=== PATIENT | female | born 1980 | race American Indian/Alaskan Native ===

== ENCOUNTER 2017-12-01 21:23 | Inpatient (IN) | payer OTHER ==
[2017-12-01 22:20] LABS: Hematocrit 45.8 % (30.3-42.9); Hemoglobin 14.4 gm/dl (10.1-14.3); Mean Corpuscular HGB Conc 31 % (30-34); Mean Corpuscular Volume 77 fl (79-97); Platelet Count 460 K/mm3 (140-440); Red Blood Count 5.96 M/mm3 (3.65-5.03); Red Cell Distribution Width 15.4 % (13.2-15.2)
[2017-12-01 22:23] LABS: Mean Corpuscular Hemoglobin 24 pg (28-32)
[2017-12-01 22:32] LABS: BUN/Creatinine Ratio 8; Blood Urea Nitrogen 5 mg/dL (7-17); Calcium 10.7 mg/dL (8.4-10.2); Hemolysis Index 10
[2017-12-01 22:45] LABS: Partial Thromboplastin Time 26.1 Sec. (24.2-36.6)
[2017-12-01 22:50] LABS: INR 0.91 (0.87-1.13)
[2017-12-01] MEDS ORDERED: NACL 0.9% 1000 ML 1,000 ML ONE (22:52)
[2017-12-01] MEDS ORDERED: NACL 0.9% 1000 ML 1,000 ML IV ONE (22:58)
[2017-12-01 23:02] LABS: Basophils % (Manual) 0 % (0.0-1.8); Eosinophils % (Manual) 0 % (0.0-4.3); Total Cells Counted 100
[2017-12-01 23:03] LABS: Anisocytosis Few; Poikilocytosis Few
--- NOTE | 2017-12-02 01:05 | Emergency Department Report ---
ED Shortness of Breath HPI - General Chief Complaint: Dyspnea/Respdistress Stated Complaint: SOB/COUGH Time Seen by Provider: 12/02/17 00:14 Source: patient Mode of arrival: Ambulatory Limitations: No Limitations - History of Present Illness Initial Comments: 37 yo female no significant Past medical history persistent hospital with complaints of shortness of breath. Patient states she had 1 episode Wednesday last week in a recurrent episode this evening. Last week patient was seen and evaluated and an urgent care center and diagnosed with bronchitis. Patient was on prednisone, inhalers, and was recently on amoxicillin which seem to be helping. Patient states that her cough was productive but now dry. She denies fevers. Patient have a right-sided lateral chest pain that is sharp and worse with inspiration. She reports travel to [place] [address] 3 weeks ago. She denies calf tenderness or edema. Patient presents significantly tachycardic and hypertensive and denies a history of high blood pressure. Patient started her menstrual cycle last night. - Related Data Allergies Allergy/AdvReac Type Severity Reaction Status Date / Time avocado Allergy Angioedema Verified 12/01/17 21:29 ED Review of Systems ROS: Stated complaint: SOB/COUGH Other details as noted in HPI Comment: All other systems reviewed and negative Other: Constitutional: No fevers chills Eyes: No eye pain visual changes ENT: No ear pain or throat pain Neck: Denies pain Respiratory: As per HPI Cardiovascular: As in HPI GI: Denies abdominal pain, nausea, vomiting, diarrhea : Denies dysuria Musculoskeletal: Denies back pain Skin: Denies rash, lesions, erythema Neurologic: Denies headache, numbness, weakness Psychiatric: Denies suicidal ideation, hallucinations ED Past Medical Hx - Past Medical History Previous Medical History?: No - Surgical History Past Surgical History?: No - Social History Smoking Status: Never Smoker Substance Use Type: None ED Physical Exam - General Limitations: No Limitations - Other Other exam information: General: No limitations, patient is alert in no acute distress Head exam: Atraumatic, normocephalic Eyes exam: Normal appearance ENT: Moist mucous membrane, normal oropharynx Neck exam: Normal inspection, full range of motion, no meningismus nontender Respiratory exam: Clear to auscultation bilateral, no wheezes, rales, crackles Cardiovascular: Tachycardic regular rhythm Abdomen: Soft, nondistended, and nontender, with normal bowel sounds, no rebound, or guarding Extremity: Full range of motion normal inspection no deformity, no calf tenderness or edema Back: Normal Inspection, full range of motion, no tenderness Neurologic: Alert, oriented x3, cranial nerves intact, no motor or sensory deficit Psychiatric: normal affect, normal mood Skin: Warm, dry, intact ED Course Vital Signs 12/01/17 12/01/17 12/01/17 21:29 22:59 23:31 Temperature 98.2 F Pulse Rate 145 H 144 H Respiratory 20 18 Rate Blood Pressure 163/112 O2 Sat by Pulse 97 96 Oximetry - Consultations Consultation #1: 12/02/17 03:46 case d/w Pulm mobile application engineer Dr Taveras, will consult ED Medical Decision Making - Lab Data Result diagrams: 12/01/17 21:46 12/01/17 21:46 Lab Results 12/01/17 12/01/17 12/01/17 Range/Units 21:46 21:46 21:46 WBC 14.1 H (4.5-11.0) K/mm3 RBC 5.96 H (3.65-5.03) M/mm3 Hgb 14.4 H (10.1-14.3) gm/dl Hct 45.8 H (30.3-42.9) % MCV 77 L (79-97) fl MCH 24 L (28-32) pg MCHC 31 (30-34) % RDW 15.4 H (13.2-15.2) % Plt Count 460 H (140-440) K/mm3 [place] % (Auto) Project Planner Add Manual Diff Complete Total Counted 100 Seg Neuts % (Manual) 70.0 (40.0-70.0) % Band Neutrophils % 0 % Lymphocytes % (Manual) 17.0 (13.4-35.0) % Reactive Lymphs % (Man) 0 % Monocytes % (Manual) 13.0 H (0.0-7.3) % Eosinophils % (Manual) 0 (0.0-4.3) % Basophils % (Manual) 0 (0.0-1.8) % Metamyelocytes % 0 % Myelocytes % 0 % Promyelocytes % 0 % Blast Cells % 0 % Nucleated RBC % Not Reportable Seg Neutrophils # Man 9.9 H (1.8-7.7) K/mm3 Band Neutrophils # 0.0 K/mm3 Lymphocytes # (Manual) 2.4 (1.2-5.4) K/mm3 Abs React Lymphs (Man) 0.0 K/mm3 Monocytes # (Manual) 1.8 H (0.0-0.8) K/mm3 Eosinophils # (Manual) 0.0 (0.0-0.4) K/mm3 Basophils # (Manual) 0.0 (0.0-0.1) K/mm3 Metamyelocytes # 0.0 K/mm3 Myelocytes # 0.0 K/mm3 Promyelocytes # 0.0 K/mm3 Blast Cells # 0.0 K/mm3 WBC Morphology Not Reportable Hypersegmented Neuts Not Reportable Hyposegmented Neuts Not Reportable Hypogranular Neuts Not Reportable Smudge Cells Not Reportable Toxic Granulation Not Reportable Toxic Vacuolation Not Reportable Dohle Bodies Not Reportable Pelger-Huet Anomaly Not Reportable Misty Rods Not Reportable Platelet Estimate Appears normal Clumped Platelets Not Reportable Plt Clumps, EDTA Not Reportable Large Platelets Not Reportable Giant Platelets Not Reportable Platelet Satelliting Not Reportable Plt Morphology Comment Not Reportable RBC Morphology Not Reportable Dimorphic RBCs Not Reportable Polychromasia Not Reportable Hypochromasia Not Reportable Poikilocytosis Few Anisocytosis Few Microcytosis Not Reportable Macrocytosis Not Reportable Spherocytes Not Reportable Pappenheimer Bodies Not Reportable Sickle Cells Not Reportable Target Cells Not Reportable Tear Drop Cells Not Reportable Ovalocytes Not Reportable Helmet Cells Not Reportable [place] Bodies Not Reportable [place] Rings Not Reportable Abram Cells Not Reportable Bite Cells Not Reportable Crenated Cell Not Reportable Elliptocytes Not Reportable Acanthocytes (Spur) Not Reportable Rouleaux Not Reportable Hemoglobin C Crystals Not Reportable Schistocytes Not Reportable Malaria parasites Not Reportable [place] Bodies Not Reportable Hem Pathologist Commnt No PT 12.7 (12.2-14.9) Sec. INR 0.91 (0.87-1.13) APTT 26.1 (24.2-36.6) Sec. D-Dimer 1167.06 H (0-234) ng/mlDDU Sodium 138 (137-145) mmol/L Potassium 3.9 (3.6-5.0) mmol/L Chloride 93.7 L (98-107) mmol/L Carbon Dioxide 30 (22-30) mmol/L Anion Gap 18 mmol/L BUN 5 L (7-17) mg/dL Creatinine 0.6 L (0.7-1.2) mg/dL Estimated GFR > 60 ml/min BUN/Creatinine Ratio 8 % Glucose 101 H (65-100) mg/dL Calcium 10.7 H (8.4-10.2) mg/dL Troponin T < 0.010 (0.00-0.029) ng/mL HCG, Qual (Negative) HCG, Quant (0-4) mIU/mL Blood Type Antibody Screen 12/01/17 12/02/17 12/02/17 Range/Units 21:46 00:06 00:36 WBC (4.5-11.0) K/mm3 RBC (3.65-5.03) M/mm3 Hgb (10.1-14.3) gm/dl Hct (30.3-42.9) % MCV (79-97) fl MCH (28-32) pg MCHC (30-34) % RDW (13.2-15.2) % Plt Count (140-440) K/mm3 [place] % (Auto) Add Manual Diff Total Counted Seg Neuts % (Manual) (40.0-70.0) % Band Neutrophils % % Lymphocytes % (Manual) (13.4-35.0) % Reactive Lymphs % (Man) % Monocytes % (Manual) (0.0-7.3) % Eosinophils % (Manual) (0.0-4.3) % Basophils % (Manual) (0.0-1.8) % Metamyelocytes % % Myelocytes % % Promyelocytes % % Blast Cells % % Nucleated RBC % Seg Neutrophils # Man (1.8-7.7) K/mm3 Band Neutrophils # K/mm3 Lymphocytes # (Manual) (1.2-5.4) K/mm3 Abs React Lymphs (Man) K/mm3 Monocytes # (Manual) (0.0-0.8) K/mm3 Eosinophils # (Manual) (0.0-0.4) K/mm3 Basophils # (Manual) (0.0-0.1) K/mm3 Metamyelocytes # K/mm3 Myelocytes # K/mm3 Promyelocytes # K/mm3 Blast Cells # K/mm3 WBC Morphology Hypersegmented Neuts Hyposegmented Neuts Hypogranular Neuts Smudge Cells Toxic Granulation Toxic Vacuolation Dohle Bodies Pelger-Huet Anomaly Misty Rods Platelet Estimate Clumped Platelets Plt Clumps, EDTA Large Platelets Giant Platelets Platelet Satelliting Plt Morphology Comment RBC Morphology Dimorphic RBCs Polychromasia Hypochromasia Poikilocytosis Anisocytosis Microcytosis Macrocytosis Spherocytes Pappenheimer Bodies Sickle Cells Target Cells Tear Drop Cells Ovalocytes Helmet Cells [place] Bodies [place] Rings [place] Cells Bite Cells Crenated Cell Elliptocytes Acanthocytes (Spur) Rouleaux Hemoglobin C Crystals Schistocytes Malaria parasites [place] Bodies Hem Pathologist Commnt PT (12.2-14.9) Sec. INR (0.87-1.13) APTT (24.2-36.6) Sec. D-Dimer (0-234) ng/mlDDU Sodium (137-145) mmol/L Potassium (3.6-5.0) mmol/L Chloride (98-107) mmol/L Carbon Dioxide (22-30) mmol/L Anion Gap mmol/L BUN (7-17) mg/dL Creatinine (0.7-1.2) mg/dL Estimated GFR ml/min BUN/Creatinine Ratio % Glucose (65-100) mg/dL Calcium (8.4-10.2) mg/dL Troponin T < 0.010 (0.00-0.029) ng/mL HCG, Qual Positive (Negative) HCG, Quant < 2 (0-4) mIU/mL Blood Type Antibody Screen 12/02/17 12/02/17 12/02/17 Range/Units 01:15 02:01 03:35 WBC (4.5-11.0) K/mm3 RBC (3.65-5.03) M/mm3 Hgb (10.1-14.3) gm/dl Hct (30.3-42.9) % MCV (79-97) fl MCH (28-32) pg MCHC (30-34) % RDW (13.2-15.2) % Plt Count (140-440) K/mm3 [place] % (Auto) Add Manual Diff Total Counted Seg Neuts % (Manual) (40.0-70.0) % Band Neutrophils % % Lymphocytes % (Manual) (13.4-35.0) % Reactive Lymphs % (Man) % Monocytes % (Manual) (0.0-7.3) % Eosinophils % (Manual) (0.0-4.3) % Basophils % (Manual) (0.0-1.8) % Metamyelocytes % % Myelocytes % % Promyelocytes % % Blast Cells % % Nucleated RBC % Seg Neutrophils # Man (1.8-7.7) K/mm3 Band Neutrophils # K/mm3 Lymphocytes # (Manual) (1.2-5.4) K/mm3 Abs React Lymphs (Man) K/mm3 Monocytes # (Manual) (0.0-0.8) K/mm3 Eosinophils # (Manual) (0.0-0.4) K/mm3 Basophils # (Manual) (0.0-0.1) K/mm3 Metamyelocytes # K/mm3 Myelocytes # K/mm3 Promyelocytes # K/mm3 Blast Cells # K/mm3 WBC Morphology Hypersegmented Neuts Hyposegmented Neuts Hypogranular Neuts Smudge Cells Toxic Granulation Toxic Vacuolation Dohle Bodies Pelger-Huet Anomaly Misty Rods Platelet Estimate Clumped Platelets Plt Clumps, EDTA Large Platelets Giant Platelets Platelet Satelliting Plt Morphology Comment RBC Morphology Dimorphic RBCs Polychromasia Hypochromasia Poikilocytosis Anisocytosis Microcytosis Macrocytosis Spherocytes Pappenheimer Bodies Sickle Cells Target Cells Tear Drop Cells Ovalocytes Helmet Cells [place] Bodies [place] Rings Abram Cells Bite Cells Crenated Cell Elliptocytes Acanthocytes (Spur) Rouleaux Hemoglobin C Crystals Schistocytes Malaria parasites [place] Bodies Hem Pathologist Commnt PT (12.2-14.9) Sec. INR (0.87-1.13) APTT (24.2-36.6) Sec. D-Dimer (0-234) ng/mlDDU Sodium (137-145) mmol/L Potassium (3.6-5.0) mmol/L Chloride (98-107) mmol/L Carbon Dioxide (22-30) mmol/L Anion Gap mmol/L BUN (7-17) mg/dL Creatinine (0.7-1.2) mg/dL Estimated GFR ml/min BUN/Creatinine Ratio % Glucose (65-100) mg/dL Calcium (8.4-10.2) mg/dL Troponin T < 0.010 (0.00-0.029) ng/mL HCG, Qual (Negative) HCG, Quant < 2 (0-4) mIU/mL Blood Type B POSITIVE Antibody Screen Negative - EKG Data -: EKG Interpreted by Me (right axis deviation) EKG shows normal: sinus rhythm, axis (124), QRS complexes (74), ST-T waves (no ST elevation or T-wave inversion) Rate: tachycardia (134) - EKG Data When compared to previous EKG there are: previous EKG unavailable - Radiology Data Radiology results: report reviewed CC shows IV contrast: No pulmonary embolism. Complete atelectasis of the right upper lobe in near complete atelectasis of the right middle lobe and right lower lobes. Extensive metastatic disease throughout the right middle and right lower lobes. Peripheral occupying the entire right hemothorax with moderate mass effect and me is sinus shift to the left. Extensive metastatic pleural based nodules throughout the right hemothorax. Moderate pericardial effusion. Multiple left lower nodules likely metastatic. Partially visualization of extensive metastatic disease seen throughout the liver. 1.8C medical ovoid soft tissue nodular density in the right infralateral breast nonspecific - Medical Decision Making Patient has metastatic disease without known cells. No pulmonary embolism but 100% pleural effusion on the right thorax. Pulmonology consultation the patient will also need oncology consultation. They should be admitted to the hospital further treatment and evaluation. - Differential Diagnosis hypertensive emergency, PE, bronchitis, pneumonia Critical Care Time: No Critical care attestation.: If time is entered above; I have spent that time in minutes in the direct care of this critically ill patient, excluding procedure time. ED Disposition Clinical Impression: Pleural effusion, right, Metastatic cancer, Tachycardia, Breast mass, HTN ( hypertension) Disposition: -09 OP ADMIT IP TO THIS HOSP Is pt being admited?: Yes Condition: Stable Time of Disposition: 04:15 (Dr Solis/hosp)
--- NOTE | 2017-12-02 03:45 | Cat Scan Report ---
FINAL REPORT EXAM: CT ANGIO CHEST HISTORY: Elevated D-dimer, tachycardia. Shortness of breath and chest pain. TECHNIQUE: CT angiogram of the chest was performed, with axial images obtained after the intravenous administration of contrast. Sagittal, coronal, and spiral 3D CT-MIP reformatted images were also obtained. No prior studies are available for comparison. FINDINGS: The heart is normal in size. There is a moderate pericardial effusion. There is moderate mediastinal shift to the left. The thoracic aorta is normal in caliber, without aneurysm or dissection. No filling defect is seen in the central or proximal segmental pulmonary arteries to suggest pulmonary embolus. Note that right-sided pulmonary arteries are relatively diminutive compared to the left due to lung collapse (see below). There is complete collapse of the right upper lobe. The right middle lobe and right lower lobe are also nearly completely collapsed, and demonstrate multiple extensive irregular low attenuating masses, in keeping with metastatic disease. A dominant confluent low attenuating mass in the anterior right lower lobe measures 3.4 cm in diameter. There is fluid occupying the entirety of the right hemithorax. Multiple pleural metastatic implants are seen throughout the right hemithorax, measuring up to 2.6 cm in the medial right lung base. Multiple pulmonary nodules are seen throughout the left lung, measuring up to 1.9 cm in diameter, in keeping with additional metastases. Note that only upper portions of the liver and spleen are well visualized. The remainder of the upper abdomen is obscured due to streak artifact from abdominal lead shielding. There is diffuse heterogeneous enhancement of the visualized liver, with multiple low attenuating masses, in keeping with additional diffuse metastatic disease. These measure up to 2.3 cm in diameter in the anterior left medial hepatic lobe. No discrete osseous abnormality is seen. There is a 1.8 cm ovoid soft tissue density in the right lateral inferior breast, nonspecific. Correlation with mammography is recommended. These findings were discussed with Dr. Ngo at time of interpretation 3:35 a.m. EST 12/02/2017. IMPRESSION: 1. No pulmonary embolism seen in the central or proximal segmental pulmonary arteries. 2. Complete atelectasis of the right upper lobe with near complete collapse of the right middle and right lower lobes. Extensive metastatic disease throughout the right middle and right lower lobes. 3. Pleural fluid occupying the entirety of the right hemithorax, with moderate mass effect and mediastinal shift to the left. Extensive metastatic pleural base nodules throughout the right hemithorax. Moderate pericardial effusion. 4. Multiple left pulmonary nodules, in keeping with additional metastatic disease. 5. Partial visualization of extensive metastatic disease seen throughout the liver. 6. 1.8 cm ovoid soft tissue nodular density in the right inferolateral breast, nonspecific. Correlation with mammography is recommended.
[2017-12-02] MEDS ORDERED: MORPHINE IV PRN (07:00)
[2017-12-02] MEDS ORDERED: PROVENTIL IH PRN (07:00)
[2017-12-02] MEDS ORDERED: DULCOLAX PR PRN (07:00)
[2017-12-02] MEDS: DUONEB *Not for PRN Use IH SCH ×4 (09:29→21:10)
[2017-12-02] MEDS: PEPCID PO SCH ×2 (10:30→22:44)
--- NOTE | 2017-12-02 10:39 | Hem/Onc Consultation ---
History of Present Illness - Reason for Consult Consult date: 12/02/17 - History of Present Illness 37 year old lady had SOB, cough and bronchitis type symptoms. No relief with amoxicillin and Albuterol and prednisone. presented to ER with cough and chest wall pain. Seen in ER. No PMH Medications and Allergies Allergies Allergy/AdvReac Type Severity Reaction Status Date / Time avocado Allergy Angioedema Verified 12/01/17 21:29 Home Medications Medication Instructions Recorded Confirmed Last Taken Type ALBUTEROL Inhaler [Proair] 2 puff IH QID PRN 12/02/17 12/02/17 12/01/17 13:00 History Active Meds: Active Medications Acetaminophen (Tylenol) 650 mg PO Q4H PRN PRN Reason: Pain MILD(1-3)/Fever >100.5/MORA Albuterol (Proventil) 2.5 mg IH Q4HRT PRN PRN Reason: Shortness Of Breath Albuterol/Ipratropium (Duoneb *Not For Prn Use*) 1 ampul IH Q6HRT [facility] Last Admin: 12/02/17 09:29 Dose: 1 ampul Bisacodyl (Dulcolax) 10 mg DE QDAY PRN PRN Reason: Constipation unrelieved by MOM Famotidine (Pepcid) 20 mg PO BID [facility] Magnesium Hydroxide (Milk Of Magnesia) 30 ml PO Q4H PRN PRN Reason: Constipation Morphine Sulfate (Morphine) 2 mg IV Q4H PRN PRN Reason: Pain, Moderate (4-6) Ondansetron HCl (Zofran) 4 mg IV Q4H PRN PRN Reason: Nausea Review of Systems All systems: negative (cough, bronchitis, chest wall pain) Exam - Constitutional Vitals: Last Vital Signs Temp 98.2 F 12/01/17 21:29 Pulse 123 H 12/02/17 09:45 Resp 20 12/02/17 09:45 BP 138/109 12/02/17 09:00 Pulse Ox 97 12/02/17 09:00 Pain Intensity (0-10): 3/10 General appearance: mild distress Performance status: 0-fully active - EENT Eyes: PERRL ENT: hearing intact Lymph node exam: negative cervical - Neck Neck: supple, normal ROM - Respiratory Respiratory effort: Positive: normal Respiratory: bilateral: CTA - Breasts Breasts: right: masses (2 cm right breast mass) - Cardiovascular Rhythm: regular Heart Sounds: Present: S1 & S2 Extremities: pulses intact - Gastrointestinal General gastrointestinal: Present: soft - Musculoskeletal Musculoskeletal: strength equal bilaterally - Neurologic Neurologic: CNII-XII intact - Psychiatric Psychiatric: appropriate mood/affect Results - Labs lab Results: Laboratory Results - last 24 hr 12/01/17 12/01/17 12/01/17 21:46 21:46 21:46 WBC 14.1 H RBC 5.96 H Hgb 14.4 H Hct 45.8 H MCV 77 L MCH 24 L MCHC 31 RDW 15.4 H Plt Count 460 H [place] % (Auto) Barrel Filler Head Add Manual Diff Complete Total Counted 100 Seg Neuts % (Manual) 70.0 Band Neutrophils % 0 Lymphocytes % (Manual) 17.0 Reactive Lymphs % (Man) 0 Monocytes % (Manual) 13.0 H Eosinophils % (Manual) 0 Basophils % (Manual) 0 Metamyelocytes % 0 Myelocytes % 0 Promyelocytes % 0 Blast Cells % 0 Nucleated RBC % Not Reportable Seg Neutrophils # Man 9.9 H Band Neutrophils # 0.0 Lymphocytes # (Manual) 2.4 Abs React Lymphs (Man) 0.0 Monocytes # (Manual) 1.8 H Eosinophils # (Manual) 0.0 Basophils # (Manual) 0.0 Metamyelocytes # 0.0 Myelocytes # 0.0 Promyelocytes # 0.0 Blast Cells # 0.0 WBC Morphology Not Reportable Hypersegmented Neuts Not Reportable Hyposegmented Neuts Not Reportable Hypogranular Neuts Not Reportable Smudge Cells Not Reportable Toxic Granulation Not Reportable Toxic Vacuolation Not Reportable Dohle Bodies Not Reportable Pelger-Huet Anomaly Not Reportable Misty Rods Not Reportable Platelet Estimate Appears normal Clumped Platelets Not Reportable Plt Clumps, EDTA Not Reportable Large Platelets Not Reportable Giant Platelets Not Reportable Platelet Satelliting Not Reportable Plt Morphology Comment Not Reportable RBC Morphology Not Reportable Dimorphic RBCs Not Reportable Polychromasia Not Reportable Hypochromasia Not Reportable Poikilocytosis Few Anisocytosis Few Microcytosis Not Reportable Macrocytosis Not Reportable Spherocytes Not Reportable Pappenheimer Bodies Not Reportable Sickle Cells Not Reportable Target Cells Not Reportable Tear Drop Cells Not Reportable Ovalocytes Not Reportable Helmet Cells Not Reportable [place] Bodies Not Reportable [place] Rings Not Reportable Abram Cells Not Reportable Bite Cells Not Reportable Crenated Cell Not Reportable Elliptocytes Not Reportable Acanthocytes (Spur) Not Reportable Rouleaux Not Reportable Hemoglobin C Crystals Not Reportable Schistocytes Not Reportable Malaria parasites Not Reportable [place] Bodies Not Reportable Hem Pathologist Commnt No PT 12.7 INR 0.91 APTT 26.1 D-Dimer 1167.06 H Sodium 138 Potassium 3.9 Chloride 93.7 L Carbon Dioxide 30 Anion Gap 18 BUN 5 L Creatinine 0.6 L Estimated GFR > 60 BUN/Creatinine Ratio 8 Glucose 101 H Calcium 10.7 H Troponin T < 0.010 HCG, Qual HCG, Quant Blood Type Antibody Screen 12/01/17 12/02/17 12/02/17 21:46 00:06 00:36 WBC RBC Hgb Hct MCV MCH MCHC RDW Plt Count [place] % (Auto) Add Manual Diff Total Counted Seg Neuts % (Manual) Band Neutrophils % Lymphocytes % (Manual) Reactive Lymphs % (Man) Monocytes % (Manual) Eosinophils % (Manual) Basophils % (Manual) Metamyelocytes % Myelocytes % Promyelocytes % Blast Cells % Nucleated RBC % Seg Neutrophils # Man Band Neutrophils # Lymphocytes # (Manual) Abs React Lymphs (Man) Monocytes # (Manual) Eosinophils # (Manual) Basophils # (Manual) Metamyelocytes # Myelocytes # Promyelocytes # Blast Cells # WBC Morphology Hypersegmented Neuts Hyposegmented Neuts Hypogranular Neuts Smudge Cells Toxic Granulation Toxic Vacuolation Dohle Bodies Pelger-Huet Anomaly Misty Rods Platelet Estimate Clumped Platelets Plt Clumps, EDTA Large Platelets Giant Platelets Platelet Satelliting Plt Morphology Comment RBC Morphology Dimorphic RBCs Polychromasia Hypochromasia Poikilocytosis Anisocytosis Microcytosis Macrocytosis Spherocytes Pappenheimer Bodies Sickle Cells Target Cells Tear Drop Cells Ovalocytes Helmet Cells [place] Bodies [place] Rings [place] Cells Bite Cells Crenated Cell Elliptocytes Acanthocytes (Spur) Rouleaux Hemoglobin C Crystals Schistocytes Malaria parasites [place] Bodies Hem Pathologist Commnt PT INR APTT D-Dimer Sodium Potassium Chloride Carbon Dioxide Anion Gap BUN Creatinine Estimated GFR BUN/Creatinine Ratio Glucose Calcium Troponin T < 0.010 HCG, Qual Positive HCG, Quant < 2 Blood Type Antibody Screen 12/02/17 12/02/17 12/02/17 01:15 02:01 03:35 WBC RBC Hgb Hct MCV MCH MCHC RDW Plt Count [place] % (Auto) Add Manual Diff Total Counted Seg Neuts % (Manual) Band Neutrophils % Lymphocytes % (Manual) Reactive Lymphs % (Man) Monocytes % (Manual) Eosinophils % (Manual) Basophils % (Manual) Metamyelocytes % Myelocytes % Promyelocytes % Blast Cells % Nucleated RBC % Seg Neutrophils # Man Band Neutrophils # Lymphocytes # (Manual) Abs React Lymphs (Man) Monocytes # (Manual) Eosinophils # (Manual) Basophils # (Manual) Metamyelocytes # Myelocytes # Promyelocytes # Blast Cells # WBC Morphology Hypersegmented Neuts Hyposegmented Neuts Hypogranular Neuts Smudge Cells Toxic Granulation Toxic Vacuolation Dohle Bodies Pelger-Huet Anomaly Misty Rods Platelet Estimate Clumped Platelets Plt Clumps, EDTA Large Platelets Giant Platelets Platelet Satelliting Plt Morphology Comment RBC Morphology Dimorphic RBCs Polychromasia Hypochromasia Poikilocytosis Anisocytosis Microcytosis Macrocytosis Spherocytes Pappenheimer Bodies Sickle Cells Target Cells Tear Drop Cells Ovalocytes Helmet Cells [place] Bodies [place] Rings [place] Cells Bite Cells Crenated Cell Elliptocytes Acanthocytes (Spur) Rouleaux Hemoglobin C Crystals Schistocytes Malaria parasites [place] Bodies Hem Pathologist Commnt PT INR APTT D-Dimer Sodium Potassium Chloride Carbon Dioxide Anion Gap BUN Creatinine Estimated GFR BUN/Creatinine Ratio Glucose Calcium Troponin T < 0.010 HCG, Qual HCG, Quant < 2 Blood Type B POSITIVE Antibody Screen Negative - Imaging and cardiology CT scan - chest: report reviewed, image reviewed Assessment and Plan - Patient Problems (1) Breast mass Current Visit: Yes Status: Acute Plan to address problem: Etiology unclear will order biopsy and tumor markers. Discussed with Dr Stefan Esparza to assess pericardial effusion. They will see patient. (2) Metastatic cancer Current Visit: Yes Status: Acute Plan to address problem: Will pursue CT abdomen and pelvis and bine scan and biopsy lung or liver. (3) Pleural effusion, right Current Visit: Yes Status: Acute Plan to address problem: Drain if significant.
--- NOTE | 2017-12-02 12:09 | Consultation ---
History of Present Illness Consult date: 12/02/17 Requesting physician: RHONA REILLY Consult reason: other (pericardial effusion ) History of present illness: The pt is a 37 YO female with no known significant past medical history. She is previously unknown to our practice. She presented with complaints of progressively worsening shortness of breath for the past 2-3 weeks. At the onset of her symptoms, she believed that she had caught the flu from her sister. She later went to an urgent care and was diagnosed with acute bronchitis and was prescribed amoxicillin. Her symptoms did not improve and she then presented to her PCP, who prescribed prednisone and inhalers. She also complains of some right-sided back pain which is aggravated by deep inspiration. She denies any cough, chest pain, palpitations, n/v, diaphoresis, dizziness or syncope. Following admission, chest CTA was negative for PE, showed complete atelectasis of the RUL with near complete collapse of the right middle and right lower lobes, extensive metastatic disease throughout the right middle and right lower lobes, pleural fluid occupying the entirety of the right hemithorax with moderate mass effect and mediastinal shift to the left, metastatic pleural base nodules throughout the right hemithorax, moderate pleural effusion, multiple left pulmonary nodules, partial visualization of extensive metastatic disease seen throughout the liver, 1.8cm ovoid soft tissue nodular density in the right breast. She underwent US guided thoracentesis this AM and a total of 2L of fluid was removed. Echo was obtained to evaluate for pericardial effusion. Echo showed EF 40-45%, noted mass impending the RA function, trivial pericardial effusion. Past History Past Medical History: No medical history Past Surgical History: No surgical history Social history: denies: smoking, alcohol abuse, prescription drug abuse Family history: hypertension (mother and aunts) Medications and Allergies Allergies Allergy/AdvReac Type Severity Reaction Status Date / Time avocado Allergy Angioedema Verified 12/01/17 21:29 Home Medications Medication Instructions Recorded Confirmed Last Taken Type ALBUTEROL Inhaler [Proair] 2 puff IH QID PRN 12/02/17 12/02/17 12/01/17 13:00 History Active Meds: Active Medications Acetaminophen (Tylenol) 650 mg PO Q4H PRN PRN Reason: Pain MILD(1-3)/Fever >100.5/MORA Albuterol (Proventil) 2.5 mg IH Q4HRT PRN PRN Reason: Shortness Of Breath Albuterol/Ipratropium (Duoneb *Not For Prn Use*) 1 ampul IH Q6HRT [facility] Last Admin: 12/02/17 09:29 Dose: 1 ampul Bisacodyl (Dulcolax) 10 mg PA QDAY PRN PRN Reason: Constipation unrelieved by MOM Famotidine (Pepcid) 20 mg PO BID [facility] Magnesium Hydroxide (Milk Of Magnesia) 30 ml PO Q4H PRN PRN Reason: Constipation Morphine Sulfate (Morphine) 2 mg IV Q4H PRN PRN Reason: Pain, Moderate (4-6) Ondansetron HCl (Zofran) 4 mg IV Q4H PRN PRN Reason: Nausea Review of Systems Constitutional: no weight loss, no weight gain, no fever, no chills, no sweats Ears, nose, mouth and throat: no ear pain, no nose pain, no sinus pressure, no sinus pain Cardiovascular: shortness of breath, dyspnea on exertion, decreased exercise tolerance, no chest pain, no orthopnea, no palpitations, no rapid/irregular heart beat, no edema, no syncope, no lightheadedness, no high blood pressure, no leg edema Respiratory: shortness of breath, dyspnea on exertion, pain on inspiration, no cough, no congestion, no wheezing Gastrointestinal: no abdominal pain, no nausea, no vomiting, no diarrhea, no constipation, no change in bowel habits Genitourinary Female: no pelvic pain, no flank pain, no dysuria, no urinary frequency, no urgency Musculoskeletal: no neck stiffness, no neck pain, no shooting arm pain, no arm numbness/tingling, no low back pain, no shooting leg pain, no leg numbness/ tingling, no redness of joints Integumentary: no rash, no pruritis, no redness, no sores, no wounds Neurological: no head injury, no paralysis, no weakness, no parathesias, no numbness, no tingling, no seizures, no syncope Psychiatric: no anxiety Endocrine: no cold intolerance, no heat intolerance Hematologic/Lymphatic: no easy bruising, no easy bleeding, no lymphadenopathy Allergic/Immunologic: no urticaria, no wheezing, no persistent infections Physical Examination Vital Signs Temp Pulse Resp BP Pulse Ox 98.2 F 145 H 20 163/112 97 12/01/17 21:29 12/01/17 21:29 12/01/17 21:29 12/01/17 21:29 12/01/17 21:29 General appearance: no acute distress HEENT: Positive: PERRL, Normocephaly, Mucus Membranes Moist Neck: Positive: neck supple, trachea midline Cardiac: Positive: Regular Rhythm, S1/S2, Tachycardia Lungs: Positive: Decreased Breath Sounds (right sided ) Neuro: Positive: Grossly Intact Abdomen: Positive: Soft. Negative: Tender Skin: Negative: Rash Musculoskeletal: No Fluid Collection, No Pain, Normal Range of Motion Extremities: Absent: edema Results 12/01/17 21:46 12/01/17 21:46 Coagulation 12/01/17 Range/Units 21:46 PT 12.7 (12.2-14.9) Sec. INR 0.91 (0.87-1.13) APTT 26.1 (24.2-36.6) Sec. CBC 12/01/17 Range/Units 21:46 WBC 14.1 H (4.5-11.0) K/mm3 RBC 5.96 H (3.65-5.03) M/mm3 Hgb 14.4 H (10.1-14.3) gm/dl Hct 45.8 H (30.3-42.9) % Plt Count 460 H (140-440) K/mm3 Comprehensive Metabolic Panel 12/01/17 Range/Units 21:46 Sodium 138 (137-145) mmol/L Potassium 3.9 (3.6-5.0) mmol/L Chloride 93.7 L (98-107) mmol/L Carbon Dioxide 30 (22-30) mmol/L BUN 5 L (7-17) mg/dL Creatinine 0.6 L (0.7-1.2) mg/dL Glucose 101 H (65-100) mg/dL Calcium 10.7 H (8.4-10.2) mg/dL - Imaging and Cardiology Echo: report reviewed (EF 40-45%, noted mass impending the RA function, trivial pericardial effusion) EKG: report reviewed, image reviewed EKG interpretations - Telemetry EKG Rhythm: Sinus Tachycardia - EKG Sinus rhythms and dysrhythmias: sinus tachycardia Assessment and Plan Assessment: Breast mass Metastatic CA Sinus tachycardia - suspect physiologic Right sided pleural effusion - s/p thoracentesis CMP - EF 40-45%; suspect tachycardia induced Plan: Echo reviewed with trivial pericardial effusion. Consider initiation of BB if necessary for HR control. Nothing further to add from cardiac perspective at this time. Will sign off, please call with questions/concerns or for re-evaluation. Assessment and plan reviewed with pt at bedside. The patient has been seen in conjunction with Dr. Baptiste who agrees with the assessment and plan of care.
--- NOTE | 2017-12-02 12:13 | Procedure Note ---
Date of procedure: 12/02/17 Pre-op diagnosis: lt effusion Post-op diagnosis: same Procedure: lt. thoracentesis Findings: straw colored fluid Anesthesia: local Surgeon: TICO ARMENDARIZ Estimated blood loss: none Pathology: list (lt pleural effusion) Specimen disposition: to lab Condition: stable Disposition: floor
[2017-12-02 12:38] LABS: pH, Body Fluid 7.393
[2017-12-02 13:38] LABS: Total Cells Counted 100 /mm3
--- NOTE | 2017-12-02 13:43 | History and Physical Report ---
History of Present Illness Date of examination: 12/02/17 Date of admission: 12/02/17 04:18 Chief complaint: shortness of breath History of present illness: Patient is a 37 year old female with no past medical history who presented to the ER with complaints of shortness of breath going on for over 2 weeks, worse with ambulation and no associated chest pain, nausea, vomiting, diarrhea or fever. Patient reports treatment with amoxicilin and prednisone from an urgent care center with no improvement. She presented to the ER after she noted worsening shortness of breath, and back pain. On arrival was noted to have showed complete atelectasis of the RUL with near complete collapse of the right middle and right lower lobes, extensive metastatic disease throughout the right middle and right lower lobes, pleural fluid occupying the entirety of the right hemithorax with moderate mass effect and mediastinal shift to the left, metastatic pleural base nodules throughout the right hemithorax, moderate pleural effusion, multiple left pulmonary nodules, partial visualization of extensive metastatic disease seen throughout the liver, 1.8cm ovoid soft tissue nodular density in the right breast. She denies any tobacco history or family history of cancer. Past History Past Medical History: No medical history Past Surgical History: No surgical history Social history: full code. denies: smoking, alcohol abuse, prescription drug abuse, IV drug use Family history: no significant family history Medications and Allergies Allergies Allergy/AdvReac Type Severity Reaction Status Date / Time avocado Allergy Angioedema Verified 12/01/17 21:29 Home Medications Medication Instructions Recorded Confirmed Last Taken Type ALBUTEROL Inhaler [Proair] 2 puff IH QID PRN 12/02/17 12/02/17 12/01/17 13:00 History Active Meds: Active Medications Acetaminophen (Tylenol) 650 mg PO Q4H PRN PRN Reason: Pain MILD(1-3)/Fever >100.5/MORA Albuterol (Proventil) 2.5 mg IH Q4HRT PRN PRN Reason: Shortness Of Breath Albuterol/Ipratropium (Duoneb *Not For Prn Use*) 1 ampul IH Q6HRT [facility] Last Admin: 12/02/17 13:38 Dose: 1 ampul Bisacodyl (Dulcolax) 10 mg NM QDAY PRN PRN Reason: Constipation unrelieved by MOM Famotidine (Pepcid) 20 mg PO BID [facility] Magnesium Hydroxide (Milk Of Magnesia) 30 ml PO Q4H PRN PRN Reason: Constipation Morphine Sulfate (Morphine) 2 mg IV Q4H PRN PRN Reason: Pain, Moderate (4-6) Ondansetron HCl (Zofran) 4 mg IV Q4H PRN PRN Reason: Nausea Review of Systems All systems: negative Cardiovascular: shortness of breath, dyspnea on exertion Respiratory: cough, shortness of breath Exam - Physical Exam Narrative exam: VITAL SIGNS: Reviewed. GENERAL: The patient appeared well nourished and normally developed. Vital signs as documented. HEAD: No signs of head trauma. EYES: Pupils are equal. Extraocular motions intact. EARS: Hearing grossly intact. MOUTH: Oropharynx is normal. NECK: No adenopathy, no JVD. CHEST: Chest with crackles breath sounds Right lobar. . CARDIAC: Regular rate and rhythm. S1 and S2, without murmurs, gallops, or rubs. VASCULAR: No Edema. Peripheral pulses normal and equal in all extremities. ABDOMEN: Soft, without detectable tenderness. No sign of distention. No rebound or guarding, and no masses palpated. Bowel Sounds normal. MUSCULOSKELETAL: Good range of motion of all major joints. Extremities without clubbing, cyanosis or edema. NEUROLOGIC EXAM: Alert and oriented x 3. No focal sensory or strength deficits. Speech normal. Follows commands. PSYCHIATRIC: Mood normal. SKIN: No rash or lesions. - Constitutional Vitals: Temp Pulse Resp BP Pulse Ox 98.2 F 121 H 18 143/111 96 12/01/17 21:29 12/02/17 13:38 12/02/17 13:38 12/02/17 10:00 12/02/17 10:00 Results - Labs CBC & Chem 7: 12/01/17 21:46 12/01/17 21:46 Labs: Laboratory Last Values WBC 14.1 K/mm3 (4.5-11.0) H 12/01/17 21:46 RBC 5.96 M/mm3 (3.65-5.03) H 12/01/17 21:46 Hgb 14.4 gm/dl (10.1-14.3) H 12/01/17 21:46 Hct 45.8 % (30.3-42.9) H 12/01/17 21:46 MCV 77 fl (79-97) L 12/01/17 21:46 MCH 24 pg (28-32) L 12/01/17 21:46 MCHC 31 % (30-34) 12/01/17 21:46 RDW 15.4 % (13.2-15.2) H 12/01/17 21:46 Plt Count 460 K/mm3 (140-440) H 12/01/17 21:46 Armstrong % (Auto) Tax Associate Attorney 12/01/17 21:46 Add Manual Diff Complete 12/01/17 21:46 Total Counted 100 12/01/17 21:46 Seg Neuts % (Manual) 70.0 % (40.0-70.0) 12/01/17 21:46 Band Neutrophils % 0 % 12/01/17 21:46 Lymphocytes % (Manual) 17.0 % (13.4-35.0) 12/01/17 21:46 Reactive Lymphs % (Man) 0 % 12/01/17 21:46 Monocytes % (Manual) 13.0 % (0.0-7.3) H 12/01/17 21:46 Eosinophils % (Manual) 0 % (0.0-4.3) 12/01/17 21:46 Basophils % (Manual) 0 % (0.0-1.8) 12/01/17 21:46 Metamyelocytes % 0 % 12/01/17 21:46 Myelocytes % 0 % 12/01/17 21:46 Promyelocytes % 0 % 12/01/17 21:46 Blast Cells % 0 % 12/01/17 21:46 Nucleated RBC % Not Reportable 12/01/17 21:46 Seg Neutrophils # Man 9.9 K/mm3 (1.8-7.7) H 12/01/17 21:46 Band Neutrophils # 0.0 K/mm3 12/01/17 21:46 Lymphocytes # (Manual) 2.4 K/mm3 (1.2-5.4) 12/01/17 21:46 Abs React Lymphs (Man) 0.0 K/mm3 12/01/17 21:46 Monocytes # (Manual) 1.8 K/mm3 (0.0-0.8) H 12/01/17 21:46 Eosinophils # (Manual) 0.0 K/mm3 (0.0-0.4) 12/01/17 21:46 Basophils # (Manual) 0.0 K/mm3 (0.0-0.1) 12/01/17 21:46 Metamyelocytes # 0.0 K/mm3 12/01/17 21:46 Myelocytes # 0.0 K/mm3 12/01/17 21:46 Promyelocytes # 0.0 K/mm3 12/01/17 21:46 Blast Cells # 0.0 K/mm3 12/01/17 21:46 WBC Morphology Not Reportable 12/01/17 21:46 Hypersegmented Neuts Not Reportable 12/01/17 21:46 Hyposegmented Neuts Not Reportable 12/01/17 21:46 Hypogranular Neuts Not Reportable 12/01/17 21:46 Smudge Cells Not Reportable 12/01/17 21:46 Toxic Granulation Not Reportable 12/01/17 21:46 Toxic Vacuolation Not Reportable 12/01/17 21:46 Dohle Bodies Not Reportable 12/01/17 21:46 Pelger-Huet Anomaly Not Reportable 12/01/17 21:46 Misty Rods Not Reportable 12/01/17 21:46 Platelet Estimate Appears normal 12/01/17 21:46 Clumped Platelets Not Reportable 12/01/17 21:46 Plt Clumps, EDTA Not Reportable 12/01/17 21:46 Large Platelets Not Reportable 12/01/17 21:46 Giant Platelets Not Reportable 12/01/17 21:46 Platelet Satelliting Not Reportable 12/01/17 21:46 Plt Morphology Comment Not Reportable 12/01/17 21:46 RBC Morphology Not Reportable 12/01/17 21:46 Dimorphic RBCs Not Reportable 12/01/17 21:46 Polychromasia Not Reportable 12/01/17 21:46 Hypochromasia Not Reportable 12/01/17 21:46 Poikilocytosis Few 12/01/17 21:46 Anisocytosis Few 12/01/17 21:46 Microcytosis Not Reportable 12/01/17 21:46 Macrocytosis Not Reportable 12/01/17 21:46 Spherocytes Not Reportable 12/01/17 21:46 Pappenheimer Bodies Not Reportable 12/01/17 21:46 Sickle Cells Not Reportable 12/01/17 21:46 Target Cells Not Reportable 12/01/17 21:46 Tear Drop Cells Not Reportable 12/01/17 21:46 Ovalocytes Not Reportable 12/01/17 21:46 Helmet Cells Not Reportable 12/01/17 21:46 Stapleton-Lomas Bodies Not Reportable 12/01/17 21:46 Grifton Rings Not Reportable 12/01/17 21:46 Royal Cells Not Reportable 12/01/17 21:46 Bite Cells Not Reportable 12/01/17 21:46 Crenated Cell Not Reportable 12/01/17 21:46 Elliptocytes Not Reportable 12/01/17 21:46 Acanthocytes (Spur) Not Reportable 12/01/17 21:46 Rouleaux Not Reportable 12/01/17 21:46 Hemoglobin C Crystals Not Reportable 12/01/17 21:46 Schistocytes Not Reportable 12/01/17 21:46 Malaria parasites Not Reportable 12/01/17 21:46 Figueroa Bodies Not Reportable 12/01/17 21:46 Hem Pathologist Commnt No 12/01/17 21:46 PT 12.7 Sec. (12.2-14.9) 12/01/17 21:46 INR 0.91 (0.87-1.13) 12/01/17 21:46 APTT 26.1 Sec. (24.2-36.6) 12/01/17 21:46 D-Dimer 1167.06 ng/mlDDU (0-234) H 12/01/17 21:46 Sodium 138 mmol/L (137-145) 12/01/17 21:46 Potassium 3.9 mmol/L (3.6-5.0) 12/01/17 21:46 Chloride 93.7 mmol/L (98-107) L 12/01/17 21:46 Carbon Dioxide 30 mmol/L (22-30) 12/01/17 21:46 Anion Gap 18 mmol/L 12/01/17 21:46 BUN 5 mg/dL (7-17) L 12/01/17 21:46 Creatinine 0.6 mg/dL (0.7-1.2) L 12/01/17 21:46 Estimated GFR > 60 ml/min 12/01/17 21:46 BUN/Creatinine Ratio 8 % 02/07/18 21:46 Glucose 101 mg/dL (65-100) H 12/01/17 21:46 Calcium 10.7 mg/dL (8.4-10.2) H 12/01/17 21:46 Troponin T < 0.010 ng/mL (0.00-0.029) 12/02/17 03:35 HCG, Qual Positive (Negative) 12/01/17 21:46 HCG, Quant < 2 mIU/mL (0-4) 12/02/17 02:01 Fluid Type Thoracentesis 12/02/17 Unknown Fluid Color Yellow 12/02/17 Unknown Fluid Appearance Clear 12/02/17 Unknown Fluid pH 7.393 12/02/17 Unknown Fluid WBC 118 /mm3 12/02/17 Unknown Fluid RBC 334 /mm3 12/02/17 Unknown Fluid Seg Neutrophils 5.0 % 12/02/17 Unknown Fluid Lymphocytes 59.0 % 12/02/17 Unknown Fluid Reactive Lymphs 0 % 12/02/17 Unknown Fluid Monocytes 36.0 % 12/02/17 Unknown Fluid Eosinophils 0 % 12/02/17 Unknown Fluid Basophils 0 % 12/02/17 Unknown Blood Type B POSITIVE 12/02/17 01:15 Antibody Screen Negative 12/02/17 01:15 - Imaging and Cardiology Chest x-ray: image reviewed (right lobar opacification) Assessment and Plan Assessment and plan: Patient is a 37 year old female with no past medical history who presented to the ER with complaints of shortness of breath going on for over 2 weeks, worse with ambulation and no associated chest pain, nausea, vomiting, diarrhea or fever. Patient reports treatment with amoxicilin and prednisone from an urgent care center with no improvement. She presented to the ER after she noted worsening shortness of breath, and back pain. On arrival was noted to have showed complete atelectasis of the RUL with near complete collapse of the right middle and right lower lobes, extensive metastatic disease throughout the right middle and right lower lobes, pleural fluid occupying the entirety of the right hemithorax with moderate mass effect and mediastinal shift to the left, metastatic pleural base nodules throughout the right hemithorax, moderate pleural effusion, multiple left pulmonary nodules, partial visualization of extensive metastatic disease seen throughout the liver, 1.8cm ovoid soft tissue nodular density in the right breast. She denies any tobacco history or family history of cancer. Acute on chronic Respiratory failure with hypoxia * Continue Nebs, oxygen support, Pulmonary consult Right Upper lobe pleural effusion * IR for diagnostic thoracentesis. Send labs Left pulmonary nodule with mass effect * May eventually need CTS surgery. Will await pathology and cytology from pleural fluids Breast Nodule * Discussed with Breast surgeon, will set up for outpatient evaluation SIRS * Secondary to above. May also have underlying infection. start on broad specturm abx after cultueres * R/o Influenza Presumed Metastatic Disease * Consult Hematology oncology DVT/GI prophy Plan discussed with patient and family The high probability of a clinically significant, sudden or life threatening deterioration of the [pulmonary] system(s) required my full and direct attention , intervention and personal management. The aggregate critical care time was [35 ] minutes. This time is in addition to time spent performing reported procedures but includes the following: [x] Data Review and interpretation [x] Patient assessment and monitoring of vital signs [x] Documentation [x] Medication orders and management Advance Directives: Yes Plan of care discussed with patient/family: Yes
--- NOTE | 2017-12-02 13:51 | Ultrasound Report ---
Ultrasound-guided thoracentesis: Imaging obtained over the posterior right chest demonstrates a large volume of pleural fluid. An approach site was marked and the skin was cleansed and draped. 1% lidocaine used for local anesthesia. Through a small skin aye a 5-gauge PressConnect catheter was placed into the pleural fluid. 120 cc of straw-colored fluid was initially removed for laboratory evaluation. A total of 2 L of fluid was successfully removed without apparent complication.
--- NOTE | 2017-12-02 14:38 | XRay Report ---
Portable chest: Right thoracentesis. Expiration AP chest shows large opacity occupying the mid and lower right lung. There is an effusion on the lateral right chest wall. The left lung is fully expanded as is the visualized right lung. Left lung is clear. Impression: No complication post right thoracentesis.
--- NOTE | 2017-12-02 17:21 | Magnetic Resonance Report ---
FINAL REPORT EXAM: MR BRAIN WO/W CON HISTORY: mets TECHNIQUE: MRI brain with and without intravenous contrast PRIORS: None. FINDINGS: There is normal signal throughout the brain parenchyma. No evidence for brain edema pattern or mass effect. Ventricles and sulci are within normal limits. No evidence for acute intra-axial or extra-axial hemorrhage. On postcontrast exam no areas of abnormal enhancement are identified. No evidence for acute restriction on diffusion-weighted study. Brainstem and posterior fossa structures are unremarkable. IMPRESSION: No evidence for intracranial metastatic disease
--- NOTE | 2017-12-02 17:35 | Magnetic Resonance Report ---
FINAL REPORT EXAM: MR MRA/MRV HEAD WO CON HISTORY: metastatic cancer MR angiogram head [id number] PRIORS: None. FINDINGS: Normal appearance of the intracranial portion of the carotid arteries. The MCA and JUAN MANUEL distributions are unremarkable Distal vertebral arteries are intact. The basilar and POLICE CADET circulation is within normal limits No evidence for major vascular occlusion or aneurysm IMPRESSION: Normal MRA head
[2017-12-02] MEDS ORDERED: MORPHINE ONE (21:26)
[2017-12-02] MEDS: ZOFRAN IV PRN (21:30)
--- NOTE | 2017-12-02 22:21 | Consultation ---
History of Present Illness Consult date: 12/02/17 History of present illness: PULMONARY CONSULTATION DR. Queen thank you for asking us to participate in the care of this Patient. This is 37 year old female came to the emergency room with shortness of breath for 2 to 3 weeks.Patient was treated for acute bronchitis and for Flu like symptoms.Patient was given po amoxicillin with out much improvement.Susequently patient given prednisone and inhalers.Patient denies fever, cough and chest pain.She said she lost some weight recently.Patient chest xray and CAT scan of chest showed complete opacification.Also reported pleural based lesions on right side. Also reported multiple nodules.Patient undergone right thoracentesis. removed 2 litres of straw colored fluid.Pleural fluid results pending.Patient has no history of smoking,alcohol or drug abuse. Not . No children.Patient works in her own bakery.Patient says she has been loosing weight for last few months.Patient allergic to [place]ac[place]. Patient post thoracentesis, alert, awake. No acute respiratory distress. O2 saturation 95% on room air. Past History Past Medical History: No medical history Past Surgical History: No surgical history Social history: denies: smoking, alcohol abuse, prescription drug abuse Family history: hypertension (mother and aunts) Medications and Allergies Allergies Allergy/AdvReac Type Severity Reaction Status Date / Time avocado Allergy Angioedema Verified 12/01/17 21:29 Home Medications Medication Instructions Recorded Confirmed Last Taken Type ALBUTEROL Inhaler [Proair] 2 puff IH QID PRN 12/02/17 12/02/17 12/01/17 13:00 History Active Meds: Active Medications Acetaminophen (Tylenol) 650 mg PO Q4H PRN PRN Reason: Pain MILD(1-3)/Fever >100.5/MORA Albuterol (Proventil) 2.5 mg IH Q4HRT PRN PRN Reason: Shortness Of Breath Albuterol/Ipratropium (Duoneb *Not For Prn Use*) 1 ampul IH Q6HRT [facility] Last Admin: 12/02/17 21:10 Dose: 1 ampul Bisacodyl (Dulcolax) 10 mg SD QDAY PRN PRN Reason: Constipation unrelieved by MOM Famotidine (Pepcid) 20 mg PO BID [facility] Last Admin: 12/02/17 10:30 Dose: Not Given Magnesium Hydroxide (Milk Of Magnesia) 30 ml PO Q4H PRN PRN Reason: Constipation Morphine Sulfate (Morphine) 2 mg IV Q4H PRN PRN Reason: Pain, Moderate (4-6) Last Admin: 12/02/17 21:30 Dose: 2 mg Ondansetron HCl (Zofran) 4 mg IV Q4H PRN PRN Reason: Nausea Last Admin: 12/02/17 21:30 Dose: 4 mg Review of Systems All systems: negative Physical Examination Vital signs: Vital Signs Temp Pulse Resp BP Pulse Ox 98.2 F 145 H 20 163/112 97 12/01/17 21:29 12/01/17 21:29 12/01/17 21:29 12/01/17 21:29 12/01/17 21:29 General appearance: no acute distress, alert Eyes: non-icteric ENT: oropharynx moist Neck: supple, no JVD Ascultation: Right: diminished breath sounds Cardiovascular: regular rate and rhythm Gastrointestinal: normoactive bowel sounds, soft, non-tender Integumentary: normal Extremities: no cyanosis, no edema Musculoskeletal: no deformities Gait: normal gait normal mental status, non-focal exam, pupils equal and round, CN II-XII normal mood appropriate Results - Laboratory Findings CBC and BMP: 12/01/17 21:46 12/01/17 21:46 PT/INR, D-dimer PT 12.7 Sec. (12.2-14.9) 12/01/17 21:46 INR 0.91 (0.87-1.13) 12/01/17 21:46 D-Dimer 1167.06 ng/mlDDU (0-234) H 12/01/17 21:46 Abnormal lab findings: Abnormal Labs 12/01/17 12/01/17 12/01/17 21:46 21:46 21:46 WBC 14.1 H RBC 5.96 H Hgb 14.4 H Hct 45.8 H MCV 77 L MCH 24 L RDW 15.4 H Plt Count 460 H Monocytes % (Manual) 13.0 H Seg Neutrophils # Man 9.9 H Monocytes # (Manual) 1.8 H D-Dimer 1167.06 H Chloride 93.7 L BUN 5 L Creatinine 0.6 L Glucose 101 H Calcium 10.7 H - Diagnostic Findings Chest x-ray: report reviewed (Complete opacification of right hemithorax. Shifting of meiastinum to the left.), image reviewed Assessment and Plan This is 37 year old female came to the emergency room with shortness of breath for 2 to 3 weeks.Patient was treated for acute bronchitis and for Flu like symptoms.Patient was given po amoxicillin with out much improvement.Susequently patient given prednisone and inhalers.Patient denies fever, cough and chest pain.She said she lost some weight recently.Patient chest xray and CAT scan of chest showed complete opacification.Also reported pleural based lesions on right side. Also reported multiple nodules.Patient undergone right thoracentesis. removed 2 litres of straw colored fluid.Pleural fluid results pending.Patient has no history of smoking,alcohol or drug abuse. Not . No children.Patient works in her own bakery.Patient says she has been loosing weight for last few months.Patient allergic to [place]. Patient post thoracentesis, alert, awake. No acute respiratory distress. O2 saturation 95% on room air. - Patient Problems (1) Pleural effusion, right Current Visit: Yes Status: Acute Plan to address problem: Patient undergone right thoracentesis Waiting for pleural fluid results. continue albuterol aerosol treatments q 6 hours. O2 2 litres via nasal canula. (2) Breast mass Current Visit: Yes Status: Acute Plan to address problem: Recommend to consult general surgery. Already oncology consulted.
[2017-12-03] MEDS: DUONEB *Not for PRN Use IH SCH ×4 (02:05→19:27)
[2017-12-03] MEDS: LEVAQUIN 750MG/150ML 750 MG/150 ML BAG IV SCH ×2 (03:41→15:51)
[2017-12-03 06:15] LABS: Basophils # (Auto) 0.1 K/mm3 (0.0-0.1); Basophils % (Auto) 0.9 % (0.0-1.8); Eosinophils # (Auto) 0.1 K/mm3 (0.0-0.4); Eosinophils % (Auto) 0.8 % (0.0-4.3); Hematocrit 39.6 % (30.3-42.9); Hemoglobin 12.7 gm/dl (10.1-14.3); Lymphocytes # (Auto) 1.2 K/mm3 (1.2-5.4); Lymphocytes % (Auto) 11.3 % (13.4-35.0); Mean Corpuscular HGB Conc 32 % (30-34); Mean Corpuscular Volume 77 fl (79-97); Monocytes # (Auto) 1.6 K/mm3 (0.0-0.8); Monocytes % (Auto) 15.4 % (0.0-7.3); Platelet Count 339 K/mm3 (140-440); Red Blood Count 5.17 M/mm3 (3.65-5.03); Red Cell Distribution Width 15.5 % (13.2-15.2)
[2017-12-03 06:17] LABS: Mean Corpuscular Hemoglobin 25 pg (28-32)
[2017-12-03 06:29] LABS: BUN/Creatinine Ratio 10; Blood Urea Nitrogen 7 mg/dL (7-17); Calcium 9.2 mg/dL (8.4-10.2); Hemolysis Index 7
--- NOTE | 2017-12-03 09:17 | Hem/Onc Progress Note ---
Assessment and Plan Awaiting scans. Awaiting pathology on the pleural fluid. May need liver biopsy. Will order [id number] Subjective Date of service: 12/03/17 Interval history: Patient anxious but feels better. Shortness of breath has improved. Appetite is coming back. Patient had 2 L of pleural fluid removed yesterday. Awaiting results. Objective - Constitutional Vitals: Last Vital Signs Temp 99.4 F 12/03/17 08:54 Pulse 120 H 12/03/17 08:54 Resp 18 12/03/17 08:54 BP 129/96 12/03/17 08:54 Pulse Ox 96 12/03/17 08:54 Pain Intensity (0-10): denies any pain General appearance: mild distress Performance status: 3-limited selfcare - EENT Lymph node exam: negative cervical, negative supraclavicular, negative axillary , negative inguinal - Neck Neck: supple - Respiratory Respiratory: right: diminished - Breasts Breasts: right: masses (2 cm mass in the right breast) - Cardiovascular Rhythm: regular Extremities: No edema - Gastrointestinal General gastrointestinal: Present: soft - Labs Lab Results: Laboratory Results - last 24 hr 12/02/17 12/03/17 12/03/17 Unknown 05:19 05:19 WBC 10.2 RBC 5.17 H Hgb 12.7 Hct 39.6 D MCV 77 L MCH 25 L MCHC 32 RDW 15.5 H Plt Count 339 Lymph % (Auto) 11.3 L [place] % (Auto) 15.4 H Eos % (Auto) 0.8 Baso % (Auto) 0.9 Lymph # 1.2 [place] # 1.6 H Eos # 0.1 Baso # 0.1 Seg Neutrophils % 71.6 H Seg Neutrophils # 7.3 Sodium 139 Potassium 4.1 Chloride 100.9 Carbon Dioxide 29 Anion Gap 13 BUN 7 Creatinine 0.7 Estimated GFR > 60 BUN/Creatinine Ratio 10 Glucose 85 Calcium 9.2 Fluid Type Thoracentesis Fluid Color Yellow Fluid Appearance Clear Fluid pH 7.393 Fluid WBC 118 Fluid RBC 334 Fluid Seg Neutrophils 5.0 Fluid Lymphocytes 59.0 Fluid Reactive Lymphs 0 Fluid Monocytes 36.0 Fluid Eosinophils 0 Fluid Basophils 0
--- NOTE | 2017-12-03 13:37 | Cat Scan Report ---
CT abdomen and pelvis with contrast: Patient with malignancy for evaluation of metastatic disease. Following IV and oral contrast transverse images are obtained from lower chest to the ischium with coronal and sagittal 2-D reformatted images. Abnormal chest findings consistent with large right effusion and pleural based masses resulting in marked atelectasis of the right lung and mass effect displacing the mediastinum. Multiple hypodensities of varying sizes are scattered to the right and left hepatic lobes. The largest of these measures approximately 2.8 cm. The abdominal and retroperitoneal organs otherwise appear generally unremarkable except for small right renal cyst. The abdominal aorta is unremarkable. No periaortic or mesenteric adenopathy appreciated. The partially opacified bowel and mesentery appear generally normal. Transverse images through the pelvis demonstrates what appears to be somewhat widened endometrium. There are bilateral parauterine hypodense masses. On the left it measures 6 cm and on the right side 3.1 cm. The left mass appears vascular with increased attenuation on delayed images. There is a small volume of cul-de-sac fluid. Bone images demonstrate a rounded 8.5 mm lesion in the left ilium involving both cortex and medullary portions. Impression: 1. Multiple liver metastases. Possible left iliac bone metastasis. 2. Pelvic masses. The left parauterine mass possibly related to the ovary is vascular and needs further evaluation.
--- NOTE | 2017-12-03 15:51 | Nuclear Medicine Report ---
BONE SCAN: Metastatic disease from unknown source. After injection of isotope, gamma camera imaging of the bony system was done. There is a normal uptake of isotope throughout the bony structures without areas of significantly increased or decreased uptake. Normal uptake in the urinary system is seen. No correlation to lucency seen on CT in left ilium. IMPRESSION: Normal bone scan.
[2017-12-03] MEDS: PEPCID PO SCH ×2 (15:52→21:40)
--- NOTE | 2017-12-03 16:16 | Progress Note ---
Assessment and Plan Assessment and plan: Patient is a 37 year old female with no past medical history who presented to the ER with complaints of shortness of breath going on for over 2 weeks, worse with ambulation and no associated chest pain, nausea, vomiting, diarrhea or fever. Patient reports treatment with amoxicilin and prednisone from an urgent care center with no improvement. She presented to the ER after she noted worsening shortness of breath, and back pain. On arrival was noted to have showed complete atelectasis of the RUL with near complete collapse of the right middle and right lower lobes, extensive metastatic disease throughout the right middle and right lower lobes, pleural fluid occupying the entirety of the right hemithorax with moderate mass effect and mediastinal shift to the left, metastatic pleural base nodules throughout the right hemithorax, moderate pleural effusion, multiple left pulmonary nodules, partial visualization of extensive metastatic disease seen throughout the liver, 1.8cm ovoid soft tissue nodular density in the right breast. She denies any tobacco history or family history of cancer. Acute on chronic Respiratory failure with hypoxia * Continue Nebs, oxygen support, Pulmonary consult noted * Repeat chest x-ray in a.m. Right Upper lobe pleural effusion * IR for diagnostic thoracentesis. Send labs * Follow labs cytology of this points from pathologist negative for any malignancy. Hepatic masses * We'll obtain IR for biopsy Uterine mass * We'll obtain pelvic ultrasound and transvaginal ultrasound Left pulmonary nodule with mass effect * May eventually need CTS surgery. Breast Nodule * Discussed with Breast surgeon, will set up for outpatient evaluation SIRS * Secondary to above. May also have underlying infection. start on broad specturm abx after cultueres * R/o Influenza Presumed Metastatic Disease * Consult Hematology oncology DVT/GI prophy Plan discussed with patient and family results of and discussed. History Interval history: Patient seen and examined this morning and reports improvement in shortness of breath still with cough nonproductive. Denies any fever nausea vomiting or diarrhea. Hospitalist Physical - Physical exam Narrative exam: VITAL SIGNS: Reviewed. GENERAL: The patient appeared well nourished and normally developed. Vital signs as documented. HEAD: No signs of head trauma. EYES: Pupils are equal. Extraocular motions intact. EARS: Hearing grossly intact. MOUTH: Oropharynx is normal. NECK: No adenopathy, no JVD. CHEST: Chest with crackles breath sounds Right lobe . CARDIAC: Regular rate and rhythm. S1 and S2, without murmurs, gallops, or rubs. VASCULAR: No Edema. Peripheral pulses normal and equal in all extremities. ABDOMEN: Soft, without detectable tenderness. No sign of distention. No rebound or guarding, and no masses palpated. Bowel Sounds normal. MUSCULOSKELETAL: Good range of motion of all major joints. Extremities without clubbing, cyanosis or edema. NEUROLOGIC EXAM: Alert and oriented x 3. No focal sensory or strength deficits. Speech normal. Follows commands. PSYCHIATRIC: Mood normal. SKIN: No rash or lesions. - Constitutional Vitals: Temp Pulse Resp BP Pulse Ox 98.6 F 96 H 18 140/111 95 12/03/17 12:35 12/03/17 13:54 12/03/17 13:54 12/03/17 12:35 12/03/17 12:35 General appearance: Present: no acute distress Results - Labs CBC & Chem 7: 12/03/17 05:19 12/03/17 05:19 Labs: Laboratory Last Values WBC 10.2 K/mm3 (4.5-11.0) 12/03/17 05:19 RBC 5.17 M/mm3 (3.65-5.03) H 12/03/17 05:19 Hgb 12.7 gm/dl (10.1-14.3) 12/03/17 05:19 Hct 39.6 % (30.3-42.9) D 12/03/17 05:19 MCV 77 fl (79-97) L 12/03/17 05:19 MCH 25 pg (28-32) L 12/03/17 05:19 MCHC 32 % (30-34) 12/03/17 05:19 RDW 15.5 % (13.2-15.2) H 12/03/17 05:19 Plt Count 339 K/mm3 (140-440) 12/03/17 05:19 Lymph % (Auto) 11.3 % (13.4-35.0) L 12/03/17 05:19 [place] % (Auto) 15.4 % (0.0-7.3) H 12/03/17 05:19 Eos % (Auto) 0.8 % (0.0-4.3) 12/03/17 05:19 Baso % (Auto) 0.9 % (0.0-1.8) 12/03/17 05:19 Lymph # 1.2 K/mm3 (1.2-5.4) 12/03/17 05:19 [place] # 1.6 K/mm3 (0.0-0.8) H 12/03/17 05:19 Eos # 0.1 K/mm3 (0.0-0.4) 12/03/17 05:19 Baso # 0.1 K/mm3 (0.0-0.1) 12/03/17 05:19 Add Manual Diff Complete 12/01/17 21:46 Total Counted 100 12/01/17 21:46 Seg Neutrophils % 71.6 % (40.0-70.0) H 12/03/17 05:19 Seg Neuts % (Manual) 70.0 % (40.0-70.0) 12/01/17 21:46 Band Neutrophils % 0 % 12/01/17 21:46 Lymphocytes % (Manual) 17.0 % (13.4-35.0) 12/01/17 21:46 Reactive Lymphs % (Man) 0 % 12/01/17 21:46 Monocytes % (Manual) 13.0 % (0.0-7.3) H 12/01/17 21:46 Eosinophils % (Manual) 0 % (0.0-4.3) 12/01/17 21:46 Basophils % (Manual) 0 % (0.0-1.8) 12/01/17 21:46 Metamyelocytes % 0 % 12/01/17 21:46 Myelocytes % 0 % 12/01/17 21:46 Promyelocytes % 0 % 12/01/17 21:46 Blast Cells % 0 % 12/01/17 21:46 Nucleated RBC % Not Reportable 12/01/17 21:46 Seg Neutrophils # 7.3 K/mm3 (1.8-7.7) 12/03/17 05:19 Seg Neutrophils # Man 9.9 K/mm3 (1.8-7.7) H 12/01/17 21:46 Band Neutrophils # 0.0 K/mm3 12/01/17 21:46 Lymphocytes # (Manual) 2.4 K/mm3 (1.2-5.4) 12/01/17 21:46 Abs React Lymphs (Man) 0.0 K/mm3 12/01/17 21:46 Monocytes # (Manual) 1.8 K/mm3 (0.0-0.8) H 12/01/17 21:46 Eosinophils # (Manual) 0.0 K/mm3 (0.0-0.4) 12/01/17 21:46 Basophils # (Manual) 0.0 K/mm3 (0.0-0.1) 12/01/17 21:46 Metamyelocytes # 0.0 K/mm3 12/01/17 21:46 Myelocytes # 0.0 K/mm3 12/01/17 21:46 Promyelocytes # 0.0 K/mm3 12/01/17 21:46 Blast Cells # 0.0 K/mm3 12/01/17 21:46 WBC Morphology Not Reportable 12/01/17 21:46 Hypersegmented Neuts Not Reportable 12/01/17 21:46 Hyposegmented Neuts Not Reportable 12/01/17 21:46 Hypogranular Neuts Not Reportable 12/01/17 21:46 Smudge Cells Not Reportable 12/01/17 21:46 Toxic Granulation Not Reportable 12/01/17 21:46 Toxic Vacuolation Not Reportable 12/01/17 21:46 Dohle Bodies Not Reportable 12/01/17 21:46 Pelger-Huet Anomaly Not Reportable 12/01/17 21:46 Misty Rods Not Reportable 12/01/17 21:46 Platelet Estimate Appears normal 12/01/17 21:46 Clumped Platelets Not Reportable 12/01/17 21:46 Plt Clumps, EDTA Not Reportable 12/01/17 21:46 Large Platelets Not Reportable 12/01/17 21:46 Giant Platelets Not Reportable 12/01/17 21:46 Platelet Satelliting Not Reportable 12/01/17 21:46 Plt Morphology Comment Not Reportable 12/01/17 21:46 RBC Morphology Not Reportable 12/01/17 21:46 Dimorphic RBCs Not Reportable 12/01/17 21:46 Polychromasia Not Reportable 12/01/17 21:46 Hypochromasia Not Reportable 12/01/17 21:46 Poikilocytosis Few 12/01/17 21:46 Anisocytosis Few 12/01/17 21:46 Microcytosis Not Reportable 12/01/17 21:46 Macrocytosis Not Reportable 12/01/17 21:46 Spherocytes Not Reportable 12/01/17 21:46 Pappenheimer Bodies Not Reportable 12/01/17 21:46 Sickle Cells Not Reportable 12/01/17 21:46 Target Cells Not Reportable 12/01/17 21:46 Tear Drop Cells Not Reportable 12/01/17 21:46 Ovalocytes Not Reportable 12/01/17 21:46 Helmet Cells Not Reportable 12/01/17 21:46 Stap[place]-Markle Bodies Not Reportable 12/01/17 21:46 [place] Rings Not Reportable 12/01/17 21:46 Abram Cells Not Reportable 12/01/17 21:46 Bite Cells Not Reportable 12/01/17 21:46 Crenated Cell Not Reportable 12/01/17 21:46 Elliptocytes Not Reportable 12/01/17 21:46 Acanthocytes (Spur) Not Reportable 12/01/17 21:46 Rouleaux Not Reportable 12/01/17 21:46 Hemoglobin C Crystals Not Reportable 12/01/17 21:46 Schistocytes Not Reportable 12/01/17 21:46 Malaria parasites Not Reportable 12/01/17 21:46 Figueroa Bodies Not Reportable 12/01/17 21:46 Hem Pathologist Commnt No 12/01/17 21:46 PT 12.7 Sec. (12.2-14.9) 12/01/17 21:46 INR 0.91 (0.87-1.13) 12/01/17 21:46 APTT 26.1 Sec. (24.2-36.6) 12/01/17 21:46 D-Dimer 1167.06 ng/mlDDU (0-234) H 12/01/17 21:46 POC ABG pH 7.439 (7.35-7.45) 12/03/17 10:25 POC ABG pCO2 40.9 (35-45) 12/03/17 10:25 POC ABG pO2 64 (80-105) L 12/03/17 10:25 POC ABG HCO3 27.7 12/03/17 10:25 POC ABG Total CO2 29 12/03/17 10:25 POC ABG O2 Sat 93 12/03/17 10:25 POC ABG Base Excess 4 12/03/17 10:25 FiO2 21 % 12/03/17 10:25 Sodium 139 mmol/L (137-145) 12/03/17 05:19 Potassium 4.1 mmol/L (3.6-5.0) 12/03/17 05:19 Chloride 100.9 mmol/L (98-107) 12/03/17 05:19 Carbon Dioxide 29 mmol/L (22-30) 12/03/17 05:19 Anion Gap 13 mmol/L 12/03/17 05:19 BUN 7 mg/dL (7-17) 12/03/17 05:19 Creatinine 0.7 mg/dL (0.7-1.2) 12/03/17 05:19 Estimated GFR > 60 ml/min 12/03/17 05:19 BUN/Creatinine Ratio 10 % 12/03/17 05:19 Glucose 85 mg/dL (65-100) 12/03/17 05:19 Calcium 9.2 mg/dL (8.4-10.2) 12/03/17 05:19 Troponin T < 0.010 ng/mL (0.00-0.029) 12/02/17 03:35 HCG, Qual Positive (Negative) 12/01/17 21:46 HCG, Quant < 2 mIU/mL (0-4) 12/02/17 02:01 Fluid Type Thoracentesis 12/02/17 Unknown Fluid Color Yellow 12/02/17 Unknown Fluid Appearance Clear 12/02/17 Unknown Fluid pH 7.393 12/02/17 Unknown Fluid WBC 118 /mm3 12/02/17 Unknown Fluid RBC 334 /mm3 12/02/17 Unknown Fluid Seg Neutrophils 5.0 % 12/02/17 Unknown Fluid Lymphocytes 59.0 % 12/02/17 Unknown Fluid Reactive Lymphs 0 % 12/02/17 Unknown Fluid Monocytes 36.0 % 12/02/17 Unknown Fluid Eosinophils 0 % 12/02/17 Unknown Fluid Basophils 0 % 12/02/17 Unknown Blood Type B POSITIVE 12/02/17 01:15 Antibody Screen Negative 12/02/17 01:15 - Imaging and Cardiology CT scan - abdomen: image reviewed (multiple hepatic lesions, multiple uterine masses)
--- NOTE | 2017-12-03 19:27 | Progress Note ---
Assessment and Plan This is 37 year old female came to the emergency room with shortness of breath for 2 to 3 weeks.Patient was treated for acute bronchitis and for Flu like symptoms.Patient was given po amoxicillin with out much improvement.Susequently patient given prednisone and inhalers.Patient denies fever, cough and chest pain.She said she lost some weight recently.Patient chest xray and CAT scan of chest showed complete opacification.Also reported pleural based lesions on right side. Also reported multiple nodules.Patient undergone right thoracentesis. removed 2 litres of straw colored fluid.Pleural fluid results pending.Patient has no history of smoking,alcohol or drug abuse. Not . No children.Patient works in her own bakery.Patient says she has been loosing weight for last few months.Patient allergic to [place]. Patient post thoracentesis, alert, awake. No acute respiratory distress. O2 saturation 95% on room air. 12/03/17 Patient alert, awake. Resting on room air.O2 saturation 96%. Denies chest pain or shortness of breath. - Patient Problems (1) Pleural effusion, right Current Visit: Yes Status: Acute Plan to address problem: Patient undergone right thoracentesis Waiting for pleural fluid results. continue albuterol aerosol treatments q 6 hours. O2 2 litres via nasal canula. (2) Breast mass Current Visit: Yes Status: Acute Plan to address problem: Recommend to consult general surgery. Already oncology consulted. Subjective Date of service: 12/03/17 Interval history: Patient alert, awake. Resting on room air.O2 saturation 96%. Denies chest pain or shortness of breath. Objective Vital Signs - 12hr 12/03/17 12/03/17 12/03/17 07:36 07:47 07:54 Temperature 99.4 F Pulse Rate 127 H Pulse Rate [ 112 H 115 H Posterior Right Middle Lobe] Respiratory 18 Rate Respiratory 18 18 Rate [Posterior Right Middle Lobe] Blood Pressure 129/96 Blood Pressure [Left] O2 Sat by Pulse 95 96 Oximetry 12/03/17 12/03/17 12/03/17 08:54 12:35 13:47 Temperature 99.4 F 98.6 F Pulse Rate 120 H 121 H Pulse Rate [ 95 H Posterior Right Middle Lobe] Respiratory 18 18 Rate Respiratory 18 Rate [Posterior Right Middle Lobe] Blood Pressure 140/111 Blood Pressure 129/96 [Left] O2 Sat by Pulse 96 95 Oximetry 12/03/17 12/03/17 12/03/17 13:54 15:53 17:34 Temperature 98.5 F Pulse Rate 141 H 134 H Pulse Rate [ 96 H Posterior Right Middle Lobe] Respiratory 16 Rate Respiratory 18 Rate [Posterior Right Middle Lobe] Blood Pressure 136/98 Blood Pressure [Left] O2 Sat by Pulse 94 Oximetry Constitutional: no acute distress, alert Eyes: non-icteric ENT: oropharynx moist Neck: supple, no JVD Ascultation: Right: diminished breath sounds Cardiovascular: regular rate and rhythm Gastrointestinal: normoactive bowel sounds, soft, non-tender Integumentary: normal Extremities: no cyanosis, no edema Neurologic: normal mental status, non-focal exam, pupils equal and round, CN II- XII normal Psychiatric: mood appropriate CBC and BMP: 12/03/17 05:19 12/03/17 05:19 ABG, PT/INR, D-dimer: ABG POC ABG pH 7.439 (7.35-7.45) 12/03/17 10:25 POC ABG pCO2 40.9 (35-45) 12/03/17 10:25 POC ABG pO2 64 (80-105) L 12/03/17 10:25 POC ABG HCO3 27.7 12/03/17 10:25 POC ABG Total CO2 29 12/03/17 10:25 POC ABG O2 Sat 93 12/03/17 10:25 PT/INR, D-dimer PT 12.7 Sec. (12.2-14.9) 12/01/17 21:46 INR 0.91 (0.87-1.13) 12/01/17 21:46 D-Dimer 1167.06 ng/mlDDU (0-234) H 12/01/17 21:46 Abnormal lab findings: Abnormal Labs 12/01/17 12/01/17 12/01/17 21:46 21:46 21:46 WBC 14.1 H RBC 5.96 H Hgb 14.4 H Hct 45.8 H MCV 77 L MCH 24 L RDW 15.4 H Plt Count 460 H Lymph % (Auto) [place] % (Auto) [place] # Seg Neutrophils % Monocytes % (Manual) 13.0 H Seg Neutrophils # Man 9.9 H Monocytes # (Manual) 1.8 H D-Dimer 1167.06 H POC ABG pO2 Chloride 93.7 L BUN 5 L Creatinine 0.6 L Glucose 101 H Calcium 10.7 H 12/03/17 12/03/17 05:19 10:25 WBC RBC 5.17 H Hgb Hct MCV 77 L MCH 25 L RDW 15.5 H Plt Count Lymph % (Auto) 11.3 L [place] % (Auto) 15.4 H [place] # 1.6 H Seg Neutrophils % 71.6 H Monocytes % (Manual) Seg Neutrophils # Man Monocytes # (Manual) D-Dimer POC ABG pO2 64 L Chloride BUN Creatinine Glucose Calcium Additional Studies: Bone scan reported negative.
--- NOTE | 2017-12-03 19:39 | Ultrasound Report ---
FINAL REPORT PROCEDURE: Transabdominal pelvic ultrasound. TECHNIQUE: Real-time transabdominal sonography in multiple planes of pelvis was performed with image documentation. This examination was performed without Doppler. Vascular abnormalities, including ovarian torsion, will not be detectable without Doppler evaluation. CPT 81287 HISTORY: Uterine mass. COMPARISON: No prior studies are available for comparison. FINDINGS: The uterus measures 9.3 centimeters x 6.0 centimeters x 6.7 centimeters. The myometrium appears somewhat inhomogeneous. The endometrial echo complex is not well-defined. Neither ovary is identified. IMPRESSION: Limited study. Inhomogeneous appearing uterus.
--- NOTE | 2017-12-03 19:43 | Ultrasound Report ---
FINAL REPORT PROCEDURE: Transvaginal pelvic ultrasound. TECHNIQUE: Real-time transvaginal sonography in multiple planes of the pelvis was performed with image documentation. This examination was performed without Doppler. Vascular abnormalities, including ovarian torsion, will not be detectable without Doppler evaluation. CPT 35219 HISTORY: Uterine mass. COMPARISON: No prior studies are available for comparison. FINDINGS: The myometrium has inhomogeneous echogenicity. The endometrial echo complex is not well-defined. There may be at least 2 uterine fibroids present. The largest is estimated at 5.8 centimeters. The right ovary appears normal with small follicles. The left ovary is not visualized. There is minimal free pelvic fluid. IMPRESSION: Inhomogeneous uterus with probable leiomyomas. Nonvisualization of the left ovary.
[2017-12-03] MEDS: MORPHINE IV PRN (22:02)
[2017-12-04] MEDS: DUONEB *Not for PRN Use IH SCH ×2 (02:05→08:47)
--- NOTE | 2017-12-04 09:55 | Consultation ---
History of Present Illness Consult date: 12/02/17 Reason for consult: other (Right breast mass) Requesting physician: ERIK BAIG Chief complaint: Right breast mass, rule out stage IV breast cancer - History of present illness History of present illness: This is a 37 year old lady recently admitted for SOB with findings of right pleural effusion and liver lesions concerning for metastatic disease. Since admission patient underwent a right thoracentesis with 2 L removed. She reports a history of a right breast cyst dx in 2003. She reports intermittent right breast pain. She denies a history of having a breast biopsy, breast surgery, she has never had a mammogram. She has no family history of breast, ovarian, prostate or colon cancer. Past History Past Medical History: No medical history Past Surgical History: No surgical history Social history: full code. denies: smoking, alcohol abuse, prescription drug abuse, IV drug use Family history: no significant family history Medications and Allergies Allergies Allergy/AdvReac Type Severity Reaction Status Date / Time avocado Allergy Angioedema Verified 12/01/17 21:29 Home Medications Medication Instructions Recorded Confirmed Last Taken Type ALBUTEROL Inhaler [Proair] 2 puff IH QID PRN 12/02/17 12/02/17 12/01/17 13:00 History Active Meds: Active Medications Acetaminophen (Tylenol) 650 mg PO Q4H PRN PRN Reason: Pain MILD(1-3)/Fever >100.5/MORA Albuterol (Proventil) 2.5 mg IH Q4HRT PRN PRN Reason: Shortness Of Breath Albuterol/Ipratropium (Duoneb *Not For Prn Use*) 1 ampul IH Q6HRT [facility] Last Admin: 12/04/17 08:47 Dose: 1 ampul Bisacodyl (Dulcolax) 10 mg MN QDAY PRN PRN Reason: Constipation unrelieved by MOM Famotidine (Pepcid) 20 mg PO BID [facility] Last Admin: 12/03/17 21:40 Dose: 20 mg Levofloxacin/Dextrose (Levaquin 750mg/150ml) 750 mg in 150 mls @ 100 mls/hr IV Q24HR PRUDENCIO PRN Reason: Protocol Last Admin: 12/03/17 15:51 Dose: 100 mls/hr Magnesium Hydroxide (Milk Of Magnesia) 30 ml PO Q4H PRN PRN Reason: Constipation Morphine Sulfate (Morphine) 2 mg IV Q4H PRN PRN Reason: Pain, Moderate (4-6) Last Admin: 12/03/17 22:02 Dose: 2 mg Ondansetron HCl (Zofran) 4 mg IV Q4H PRN PRN Reason: Nausea Last Admin: 12/02/17 21:30 Dose: 4 mg Review of Systems - Breasts other (intermittent right lower outer breast pain) - Respiratory shortness of breath Exam Vital Signs Temp Pulse Resp BP Pulse Ox 98.2 F 145 H 20 163/112 97 12/01/17 21:29 12/01/17 21:29 12/01/17 21:29 12/01/17 21:29 12/01/17 21:29 - General physical appearance Positive: well developed, well nourished - Eyes Positive: PERRL, normal occular movement - ENT Positive: normal pinna, normal nares, normal mucosa, no hearing loss, no congestion - Neck Positive: no masses, no bruits, trachea midline, no lymphadectomy, no venous distension - Respiratory Positive: normal expansion - Cardiovascular Rhythm: regular - Extremities Extremities: no ischemia - Breasts Breasts: other (right breast pain at the 7:00 position 5-6 cm from the nipple close of IMF-palpable nodule versus normal dense tissue-->need to assess with u/ s) - Genitourinary Female Genitourinary: deferred - Integumentary no rash, no growths, no abnormal pigmentation - Neurologic Neurologic: alert and oriented to time, place and person, motor strength and sensation are grossly intact, CN II-XII intact - Musculoskeletal normal posture - Psychiatric Psychiatric: appropriate mood/affect, intact judgment & insight, memory intact, cooperative Results - Labs 12/03/17 05:19 12/03/17 05:19 Abnormal lab results 12/03/17 Range/Units 10:25 POC ABG pO2 64 L (80-105) Assessment and Plan This is a 37 year old lady admitted for SOB with recent thoracentesis with 2 L removed. Recent diagnostic imaging concerning for metastatic cancer with liver lesions and pleural effusion, recommend liver biopsy by IR for dx. Once patient is d/c home, will obtain diagnostic bilateral mammogram with breast ultrasound. PE of right breast with tenderness noted around the 7:00 position close to IMF. Will complete breast workup once d/c. Thank you for this consult and my office will arrange for the above diagnostic breast workup. - Patient Problems (1) Breast mass in female Current Visit: Yes Status: Acute Plan to address problem: diagnostic mammogram and u/s
[2017-12-04] MEDS: LEVAQUIN 750MG/150ML 750 MG/150 ML BAG IV SCH (10:55)
[2017-12-04] MEDS: PEPCID PO SCH ×2 (10:55→21:34)
--- NOTE | 2017-12-04 12:53 | Progress Note ---
Assessment and Plan This is 37 year old female came to the emergency room with shortness of breath for 2 to 3 weeks.Patient was treated for acute bronchitis and for Flu like symptoms.Patient was given po amoxicillin with out much improvement.Susequently patient given prednisone and inhalers.Patient denies fever, cough and chest pain.She said she lost some weight recently.Patient chest xray and CAT scan of chest showed complete opacification.Also reported pleural based lesions on right side. Also reported multiple nodules.Patient undergone right thoracentesis. removed 2 litres of straw colored fluid.Pleural fluid results pending.Patient has no history of smoking,alcohol or drug abuse. Not . No children.Patient works in her own bakery.Patient says she has been loosing weight for last few months.Patient allergic to [place]. Patient post thoracentesis, alert, awake. No acute respiratory distress. O2 saturation 95% on room air. 12/03/17 Patient alert, awake. Resting on room air.O2 saturation 96%. Denies chest pain or shortness of breath. 12/04/17 Patient alert, awake. Resting on room air.O2 saturation 96%. Denies chest pain or shortness of breath. Pleural fluid cytology reported negative for malignant cells. Pleural fluid cell count wbc 118 rbc 334 which are not high. Pleural fluid chemistry results still pending Pelvic ultrasound reported limited study. In homogenous uterus has been reported. Not reported status on Ovaries. Recommend to get ultrasound dedicated to Ovaries. If any Ovarian mass present, consider Meighs syndrome. - Patient Problems (1) Pleural effusion, right Current Visit: Yes Status: Acute Plan to address problem: Patient undergone right thoracentesis Pleural fluid cytology reported negative for malignant cells. Pleural fluid cell count wbc 118 rbc 334 which are not high. Pleural fluid chemistry results still pending. Pelvic ultrasound reported limited study. In homogenous uterus has been reported. Not reported status on Ovaries. Recommend to get ultrasound dedicated to Ovaries. If any Ovarian mass present, consider Meighs syndrome. (2) Breast mass Current Visit: Yes Status: Acute Plan to address problem: General surgery consulted. Already oncology consulted. Subjective Date of service: 12/04/17 Interval history: Patient alert, awake. Resting on room air.O2 saturation 97%. Denies chest pain or shortness of breath. Pleural fluid cytology reported negative for malignant cells. Pleural fluid cell count wbc 118 rbc 334 which are not high. Pleural fluid chemistry results still pending. Pelvic ultrasound reported limited study. In homogenous uterus has been reported. Not reported status on Ovaries. Recommend to get ultrasound dedicated to Ovaries. If any Ovarian mass present, consider Meighs syndrome. Objective Vital Signs - 12hr 12/04/17 12/04/17 12/04/17 01:00 05:02 08:47 Temperature 98.6 F Pulse Rate 120 H 112 H Pulse Rate [ 112 H Anterior Bilateral Throughout] Respiratory 18 Rate Respiratory 20 Rate [Anterior Bilateral Throughout] Blood Pressure 140/102 O2 Sat by Pulse 94 97 Oximetry 12/04/17 08:57 Temperature Pulse Rate Pulse Rate [ 120 H Anterior Bilateral Throughout] Respiratory Rate Respiratory 20 Rate [Anterior Bilateral Throughout] Blood Pressure O2 Sat by Pulse Oximetry Constitutional: no acute distress, alert Eyes: non-icteric ENT: oropharynx moist Neck: supple, no JVD Ascultation: Right: diminished breath sounds Cardiovascular: regular rate and rhythm Gastrointestinal: normoactive bowel sounds, soft, non-tender Integumentary: normal Extremities: no cyanosis, no edema Neurologic: normal mental status, non-focal exam, pupils equal and round, CN II- XII normal Psychiatric: mood appropriate CBC and BMP: 12/03/17 05:19 12/03/17 05:19 ABG, PT/INR, D-dimer: ABG POC ABG pH 7.439 (7.35-7.45) 12/03/17 10:25 POC ABG pCO2 40.9 (35-45) 12/03/17 10:25 POC ABG pO2 64 (80-105) L 12/03/17 10:25 POC ABG HCO3 27.7 12/03/17 10:25 POC ABG Total CO2 29 12/03/17 10:25 POC ABG O2 Sat 93 12/03/17 10:25 PT/INR, D-dimer PT 12.7 Sec. (12.2-14.9) 12/01/17 21:46 INR 0.91 (0.87-1.13) 12/01/17 21:46 D-Dimer 1167.06 ng/mlDDU (0-234) H 12/01/17 21:46 Abnormal lab findings: Abnormal Labs 12/01/17 12/01/17 12/01/17 21:46 21:46 21:46 WBC 14.1 H RBC 5.96 H Hgb 14.4 H Hct 45.8 H MCV 77 L MCH 24 L RDW 15.4 H Plt Count 460 H Lymph % (Auto) [place] % (Auto) [place] # Seg Neutrophils % Monocytes % (Manual) 13.0 H Seg Neutrophils # Man 9.9 H Monocytes # (Manual) 1.8 H D-Dimer 1167.06 H POC ABG pO2 Chloride 93.7 L BUN 5 L Creatinine 0.6 L Glucose 101 H Calcium 10.7 H 12/03/17 12/03/17 05:19 10:25 WBC RBC 5.17 H Hgb Hct MCV 77 L MCH 25 L RDW 15.5 H Plt Count Lymph % (Auto) 11.3 L [place] % (Auto) 15.4 H [place] # 1.6 H Seg Neutrophils % 71.6 H Monocytes % (Manual) Seg Neutrophils # Man Monocytes # (Manual) D-Dimer POC ABG pO2 64 L Chloride BUN Creatinine Glucose Calcium Additional Studies: Pelvic ultrasound. reported limited study. In homogenous uterus has been reported.
--- NOTE | 2017-12-04 13:23 | Hem/Onc Progress Note ---
Assessment and Plan Liver biopsy ordered for Wednesday. Pleural fluid cytology negative. Discussed with patient Subjective Date of service: 12/04/17 Interval history: Patient anxious but feels better. Shortness of breath has improved. Appetite is coming back. Pathology on pleural fluid negative. Objective - Constitutional Vitals: Last Vital Signs Temp 98.6 F 12/04/17 05:02 Pulse 120 H 12/04/17 08:57 Resp 20 12/04/17 08:57 BP 140/102 12/04/17 05:02 Pulse Ox 97 12/04/17 08:47 General appearance: no acute distress Performance status: 2- selfcare, ambulatory - Neck Neck: supple - Respiratory Respiratory effort: Positive: normal Respiratory: right: diminished - Cardiovascular Rhythm: regular Extremities: No edema - Gastrointestinal General gastrointestinal: Present: soft
[2017-12-04] MEDS: ATROVENT IH SCH ×2 (15:39→23:36)
[2017-12-04] MEDS: XOPENEX IH PRN ×2 (18:16→23:36)
--- NOTE | 2017-12-04 18:17 | Progress Note ---
Assessment and Plan Assessment and plan: Patient is a 37 year old female with no past medical history who presented to the ER with complaints of shortness of breath going on for over 2 weeks, worse with ambulation and no associated chest pain, nausea, vomiting, diarrhea or fever. Patient reports treatment with amoxicilin and prednisone from an urgent care center with no improvement. She presented to the ER after she noted worsening shortness of breath, and back pain. On arrival was noted to have showed complete atelectasis of the RUL with near complete collapse of the right middle and right lower lobes, extensive metastatic disease throughout the right middle and right lower lobes, pleural fluid occupying the entirety of the right hemithorax with moderate mass effect and mediastinal shift to the left, metastatic pleural base nodules throughout the right hemithorax, moderate pleural effusion, multiple left pulmonary nodules, partial visualization of extensive metastatic disease seen throughout the liver, 1.8cm ovoid soft tissue nodular density in the right breast. She denies any tobacco history or family history of cancer. Acute on chronic Respiratory failure with hypoxia * Continue Nebs, oxygen support, Pulmonary consult noted * Repeat chest x-ray in a.m. Right Upper lobe pleural effusion * IR for diagnostic thoracentesis. Send labs * Follow labs cytology of this points from pathologist negative for any malignancy. Hepatic masses * We'll obtain IR for biopsy Uterine mass * We'll obtain pelvic ultrasound and transvaginal ultrasound * FITNESS ATTENDANT consult Left pulmonary nodule with mass effect * May eventually need CTS surgery. Breast Nodule * Discussed with Breast surgeon, will set up for outpatient evaluation Sinus tachycardia * stop albuterol start xopenex Insomnia * Ambien SIRS * Secondary to above. May also have underlying infection. start on broad specturm abx after cultueres * R/o Influenza Presumed Metastatic Disease * Consult Hematology oncology DVT/GI prophy Plan discussed with patient and family results of and discussed. History Interval history: Patient seen and examined this morning and reports improvement in shortness of breath still with cough nonproductive. Denies any fever nausea vomiting or diarrhea. Hospitalist Physical - Physical exam Narrative exam: VITAL SIGNS: Reviewed. GENERAL: The patient appeared well nourished and normally developed. Vital signs as documented. HEAD: No signs of head trauma. EYES: Pupils are equal. Extraocular motions intact. EARS: Hearing grossly intact. MOUTH: Oropharynx is normal. NECK: No adenopathy, no JVD. CHEST: Chest with crackles breath sounds Right lobe . CARDIAC: Regular rate and rhythm. S1 and S2, without murmurs, gallops, or rubs. VASCULAR: No Edema. Peripheral pulses normal and equal in all extremities. ABDOMEN: Soft, without detectable tenderness. No sign of distention. No rebound or guarding, and no masses palpated. Bowel Sounds normal. MUSCULOSKELETAL: Good range of motion of all major joints. Extremities without clubbing, cyanosis or edema. NEUROLOGIC EXAM: Alert and oriented x 3. No focal sensory or strength deficits. Speech normal. Follows commands. PSYCHIATRIC: Mood normal. SKIN: No rash or lesions. - Constitutional Vitals: Temp Pulse Resp BP Pulse Ox 98.6 F 122 H 18 144/98 97 12/04/17 05:02 12/04/17 16:02 12/04/17 16:02 12/04/17 13:23 12/04/17 08:47 General appearance: Present: no acute distress Results - Labs CBC & Chem 7: 12/03/17 05:19 12/03/17 05:19 Labs: Laboratory Last Values WBC 10.2 K/mm3 (4.5-11.0) 12/03/17 05:19 RBC 5.17 M/mm3 (3.65-5.03) H 12/03/17 05:19 Hgb 12.7 gm/dl (10.1-14.3) 12/03/17 05:19 Hct 39.6 % (30.3-42.9) D 12/03/17 05:19 MCV 77 fl (79-97) L 12/03/17 05:19 MCH 25 pg (28-32) L 12/03/17 05:19 MCHC 32 % (30-34) 12/03/17 05:19 RDW 15.5 % (13.2-15.2) H 12/03/17 05:19 Plt Count 339 K/mm3 (140-440) 12/03/17 05:19 Lymph % (Auto) 11.3 % (13.4-35.0) L 12/03/17 05:19 [place] % (Auto) 15.4 % (0.0-7.3) H 12/03/17 05:19 Eos % (Auto) 0.8 % (0.0-4.3) 12/03/17 05:19 Baso % (Auto) 0.9 % (0.0-1.8) 12/03/17 05:19 Lymph # 1.2 K/mm3 (1.2-5.4) 12/03/17 05:19 [place] # 1.6 K/mm3 (0.0-0.8) H 12/03/17 05:19 Eos # 0.1 K/mm3 (0.0-0.4) 12/03/17 05:19 Baso # 0.1 K/mm3 (0.0-0.1) 12/03/17 05:19 Add Manual Diff Complete 12/01/17 21:46 Total Counted 100 12/01/17 21:46 Seg Neutrophils % 71.6 % (40.0-70.0) H 12/03/17 05:19 Seg Neuts % (Manual) 70.0 % (40.0-70.0) 12/01/17 21:46 Band Neutrophils % 0 % 12/01/17 21:46 Lymphocytes % (Manual) 17.0 % (13.4-35.0) 12/01/17 21:46 Reactive Lymphs % (Man) 0 % 12/01/17 21:46 Monocytes % (Manual) 13.0 % (0.0-7.3) H 12/01/17 21:46 Eosinophils % (Manual) 0 % (0.0-4.3) 12/01/17 21:46 Basophils % (Manual) 0 % (0.0-1.8) 12/01/17 21:46 Metamyelocytes % 0 % 12/01/17 21:46 Myelocytes % 0 % 12/01/17 21:46 Promyelocytes % 0 % 12/01/17 21:46 Blast Cells % 0 % 12/01/17 21:46 Nucleated RBC % Not Reportable 12/01/17 21:46 Seg Neutrophils # 7.3 K/mm3 (1.8-7.7) 12/03/17 05:19 Seg Neutrophils # Man 9.9 K/mm3 (1.8-7.7) H 12/01/17 21:46 Band Neutrophils # 0.0 K/mm3 12/01/17 21:46 Lymphocytes # (Manual) 2.4 K/mm3 (1.2-5.4) 12/01/17 21:46 Abs React Lymphs (Man) 0.0 K/mm3 12/01/17 21:46 Monocytes # (Manual) 1.8 K/mm3 (0.0-0.8) H 12/01/17 21:46 Eosinophils # (Manual) 0.0 K/mm3 (0.0-0.4) 12/01/17 21:46 Basophils # (Manual) 0.0 K/mm3 (0.0-0.1) 12/01/17 21:46 Metamyelocytes # 0.0 K/mm3 12/01/17 21:46 Myelocytes # 0.0 K/mm3 12/01/17 21:46 Promyelocytes # 0.0 K/mm3 12/01/17 21:46 Blast Cells # 0.0 K/mm3 12/01/17 21:46 WBC Morphology Not Reportable 12/01/17 21:46 Hypersegmented Neuts Not Reportable 12/01/17 21:46 Hyposegmented Neuts Not Reportable 12/01/17 21:46 Hypogranular Neuts Not Reportable 12/01/17 21:46 Smudge Cells Not Reportable 12/01/17 21:46 Toxic Granulation Not Reportable 12/01/17 21:46 Toxic Vacuolation Not Reportable 12/01/17 21:46 Dohle Bodies Not Reportable 12/01/17 21:46 Pelger-Huet Anomaly Not Reportable 12/01/17 21:46 Misty Rods Not Reportable 12/01/17 21:46 Platelet Estimate Appears normal 12/01/17 21:46 Clumped Platelets Not Reportable 12/01/17 21:46 Plt Clumps, EDTA Not Reportable 12/01/17 21:46 Large Platelets Not Reportable 12/01/17 21:46 Giant Platelets Not Reportable 12/01/17 21:46 Platelet Satelliting Not Reportable 12/01/17 21:46 Plt Morphology Comment Not Reportable 12/01/17 21:46 RBC Morphology Not Reportable 12/01/17 21:46 Dimorphic RBCs Not Reportable 12/01/17 21:46 Polychromasia Not Reportable 12/01/17 21:46 Hypochromasia Not Reportable 12/01/17 21:46 Poikilocytosis Few 12/01/17 21:46 Anisocytosis Few 12/01/17 21:46 Microcytosis Not Reportable 12/01/17 21:46 Macrocytosis Not Reportable 12/01/17 21:46 Spherocytes Not Reportable 12/01/17 21:46 Pappenheimer Bodies Not Reportable 12/01/17 21:46 Sickle Cells Not Reportable 12/01/17 21:46 Target Cells Not Reportable 12/01/17 21:46 Tear Drop Cells Not Reportable 12/01/17 21:46 Ovalocytes Not Reportable 12/01/17 21:46 Helmet Cells Not Reportable 12/01/17 21:46 [place] Bodies Not Reportable 12/01/17 21:46 [place] Rings Not Reportable 12/01/17 21:46 Abram Cells Not Reportable 12/01/17 21:46 Bite Cells Not Reportable 12/01/17 21:46 Crenated Cell Not Reportable 12/01/17 21:46 Elliptocytes Not Reportable 12/01/17 21:46 Acanthocytes (Spur) Not Reportable 12/01/17 21:46 Rouleaux Not Reportable 12/01/17 21:46 Hemoglobin C Crystals Not Reportable 12/01/17 21:46 Schistocytes Not Reportable 12/01/17 21:46 Malaria parasites Not Reportable 12/01/17 21:46 [place] Bodies Not Reportable 12/01/17 21:46 Hem Pathologist Commnt No 12/01/17 21:46 PT 12.7 Sec. (12.2-14.9) 12/01/17 21:46 INR 0.91 (0.87-1.13) 12/01/17 21:46 APTT 26.1 Sec. (24.2-36.6) 12/01/17 21:46 D-Dimer 1167.06 ng/mlDDU (0-234) H 12/01/17 21:46 POC ABG pH 7.439 (7.35-7.45) 12/03/17 10:25 POC ABG pCO2 40.9 (35-45) 12/03/17 10:25 POC ABG pO2 64 (80-105) L 12/03/17 10:25 POC ABG HCO3 27.7 12/03/17 10:25 POC ABG Total CO2 29 12/03/17 10:25 POC ABG O2 Sat 93 12/03/17 10:25 POC ABG Base Excess 4 12/03/17 10:25 FiO2 21 % 12/03/17 10:25 Sodium 139 mmol/L (137-145) 12/03/17 05:19 Potassium 4.1 mmol/L (3.6-5.0) 12/03/17 05:19 Chloride 100.9 mmol/L (98-107) 12/03/17 05:19 Carbon Dioxide 29 mmol/L (22-30) 12/03/17 05:19 Anion Gap 13 mmol/L 12/03/17 05:19 BUN 7 mg/dL (7-17) 12/03/17 05:19 Creatinine 0.7 mg/dL (0.7-1.2) 12/03/17 05:19 Estimated GFR > 60 ml/min 12/03/17 05:19 BUN/Creatinine Ratio 10 % 12/03/17 05:19 Glucose 85 mg/dL (65-100) 12/03/17 05:19 Calcium 9.2 mg/dL (8.4-10.2) 12/03/17 05:19 Troponin T < 0.010 ng/mL (0.00-0.029) 12/02/17 03:35 HCG, Qual Positive (Negative) 12/01/17 21:46 HCG, Quant < 2 mIU/mL (0-4) 12/02/17 02:01 Fluid Type Thoracentesis 12/02/17 Unknown Fluid Color Yellow 12/02/17 Unknown Fluid Appearance Clear 12/02/17 Unknown Fluid pH 7.393 12/02/17 Unknown Fluid WBC 118 /mm3 12/02/17 Unknown Fluid RBC 334 /mm3 12/02/17 Unknown Fluid Seg Neutrophils 5.0 % 12/02/17 Unknown Fluid Lymphocytes 59.0 % 12/02/17 Unknown Fluid Reactive Lymphs 0 % 12/02/17 Unknown Fluid Monocytes 36.0 % 12/02/17 Unknown Fluid Eosinophils 0 % 12/02/17 Unknown Fluid Basophils 0 % 12/02/17 Unknown Blood Type B POSITIVE 12/02/17 01:15 Antibody Screen Negative 12/02/17 01:15
--- NOTE | 2017-12-04 20:29 | XRay Report ---
FINAL REPORT PROCEDURE: PA and lateral chest x-ray TECHNIQUE: PA and lateral chest radiographs were obtained. CPT 57877 HISTORY: Pleural effusion COMPARISON: Prior CT scan of the chest 12/27/2010 FINDINGS: Heart: Normal. Mediastinum/Vessels: Visualized pulmonary arteries are not significantly distended. Heart appears to be mildly displaced to the left.. Lungs/Pleural space: There is a massive right pleural effusion and near complete atelectasis of the right lung. Several nodular densities are seen in the left midlung field and left lateral costophrenic angle consistent with metastatic disease.. Bony thorax: No acute osseous abnormality. Other: IMPRESSION: Persistent massive right pleural effusion with near complete atelectasis right lung. There appears to be mild tension from the right effusion. Mediastinal structures appear to be shifted mildly towards the left. Nodular densities seen left midlung field left lateral costophrenic angle consistent with metastatic disease..
[2017-12-04] MEDS: MORPHINE IV PRN (21:34)
[2017-12-04] MEDS: AMBIEN PO PRN (22:32)
[2017-12-05] MEDS: ATROVENT IH SCH ×3 (08:01→16:00)
[2017-12-05] MEDS: XOPENEX IH PRN ×2 (08:01→14:44)
[2017-12-05] MEDS: LEVAQUIN 750MG/150ML 750 MG/150 ML BAG IV SCH (10:55)
[2017-12-05] MEDS: PEPCID PO SCH ×2 (10:55→22:09)
--- NOTE | 2017-12-05 11:04 | Progress Note ---
Assessment and Plan Assessment and plan: A/p: Acute on chronic Respiratory failure with hypoxia * Continue Nebs, oxygen support, Pulmonary consult noted * Repeat chest x-ray in a.m. Right Upper lobe pleural effusion * IR for diagnostic thoracentesis. Send labs * Follow labs cytology of this points from pathologist negative for any malignancy. Hepatic masses * IR for biopsy tomorrow Uterine mass * We'll obtain pelvic ultrasound and transvaginal ultrasound * APARTMENT MAINTENANCE MANAGER consult Left pulmonary nodule with mass effect * May eventually need CTS surgery. Breast Nodule * Discussed with Breast surgeon, will set up for outpatient evaluation Sinus tachycardia * stop albuterol start xopenex Insomnia * Ambien SIRS * Secondary to above. May also have underlying infection. start on broad specturm abx after cultueres * R/o Influenza Presumed Metastatic Disease * Consult Hematology oncology DVT/GI prophy Plan discussed with patient and family results of and discussed. Pleural Fluid cytology--negative per HemOnc History Interval history: No new compliants and feeling better with no SOB Hospitalist Physical - Constitutional Vitals: Temp Pulse Resp BP Pulse Ox 98.8 F 119 H 18 129/94 97 12/05/17 09:40 12/05/17 09:40 12/05/17 09:40 12/05/17 09:40 12/05/17 09:40 General appearance: Present: no acute distress, well-nourished - EENT Eyes: Present: PERRL, EOM intact - Neck Neck: Present: supple, normal ROM - Respiratory Respiratory effort: normal Respiratory: right: diminished - Cardiovascular Rhythm: regular Heart Sounds: Present: S1 & S2 - Extremities Extremities: No edema - Abdominal General gastrointestinal: soft, non-tender Results - Labs CBC & Chem 7: 12/03/17 05:19 12/03/17 05:19 Labs: Laboratory Last Values WBC 10.2 K/mm3 (4.5-11.0) 12/03/17 05:19 RBC 5.17 M/mm3 (3.65-5.03) H 12/03/17 05:19 Hgb 12.7 gm/dl (10.1-14.3) 12/03/17 05:19 Hct 39.6 % (30.3-42.9) D 12/03/17 05:19 MCV 77 fl (79-97) L 12/03/17 05:19 MCH 25 pg (28-32) L 12/03/17 05:19 MCHC 32 % (30-34) 12/03/17 05:19 RDW 15.5 % (13.2-15.2) H 12/03/17 05:19 Plt Count 339 K/mm3 (140-440) 12/03/17 05:19 Lymph % (Auto) 11.3 % (13.4-35.0) L 12/03/17 05:19 Geary % (Auto) 15.4 % (0.0-7.3) H 12/03/17 05:19 Eos % (Auto) 0.8 % (0.0-4.3) 12/03/17 05:19 Baso % (Auto) 0.9 % (0.0-1.8) 12/03/17 05:19 Lymph # 1.2 K/mm3 (1.2-5.4) 12/03/17 05:19 Geary # 1.6 K/mm3 (0.0-0.8) H 12/03/17 05:19 Eos # 0.1 K/mm3 (0.0-0.4) 12/03/17 05:19 Baso # 0.1 K/mm3 (0.0-0.1) 12/03/17 05:19 Add Manual Diff Complete 12/01/17 21:46 Total Counted 100 12/01/17 21:46 Seg Neutrophils % 71.6 % (40.0-70.0) H 12/03/17 05:19 Seg Neuts % (Manual) 70.0 % (40.0-70.0) 12/01/17 21:46 Band Neutrophils % 0 % 12/01/17 21:46 Lymphocytes % (Manual) 17.0 % (13.4-35.0) 12/01/17 21:46 Reactive Lymphs % (Man) 0 % 12/01/17 21:46 Monocytes % (Manual) 13.0 % (0.0-7.3) H 12/01/17 21:46 Eosinophils % (Manual) 0 % (0.0-4.3) 12/01/17 21:46 Basophils % (Manual) 0 % (0.0-1.8) 12/01/17 21:46 Metamyelocytes % 0 % 12/01/17 21:46 Myelocytes % 0 % 12/01/17 21:46 Promyelocytes % 0 % 12/01/17 21:46 Blast Cells % 0 % 12/01/17 21:46 Nucleated RBC % Not Reportable 12/01/17 21:46 Seg Neutrophils # 7.3 K/mm3 (1.8-7.7) 12/03/17 05:19 Seg Neutrophils # Man 9.9 K/mm3 (1.8-7.7) H 12/01/17 21:46 Band Neutrophils # 0.0 K/mm3 12/01/17 21:46 Lymphocytes # (Manual) 2.4 K/mm3 (1.2-5.4) 12/01/17 21:46 Abs React Lymphs (Man) 0.0 K/mm3 12/01/17 21:46 Monocytes # (Manual) 1.8 K/mm3 (0.0-0.8) H 12/01/17 21:46 Eosinophils # (Manual) 0.0 K/mm3 (0.0-0.4) 12/01/17 21:46 Basophils # (Manual) 0.0 K/mm3 (0.0-0.1) 12/01/17 21:46 Metamyelocytes # 0.0 K/mm3 12/01/17 21:46 Myelocytes # 0.0 K/mm3 12/01/17 21:46 Promyelocytes # 0.0 K/mm3 12/01/17 21:46 Blast Cells # 0.0 K/mm3 12/01/17 21:46 WBC Morphology Not Reportable 12/01/17 21:46 Hypersegmented Neuts Not Reportable 12/01/17 21:46 Hyposegmented Neuts Not Reportable 12/01/17 21:46 Hypogranular Neuts Not Reportable 12/01/17 21:46 Smudge Cells Not Reportable 12/01/17 21:46 Toxic Granulation Not Reportable 12/01/17 21:46 Toxic Vacuolation Not Reportable 12/01/17 21:46 Dohle Bodies Not Reportable 12/01/17 21:46 Pelger-Huet Anomaly Not Reportable 12/01/17 21:46 Misty Rods Not Reportable 12/01/17 21:46 Platelet Estimate Appears normal 12/01/17 21:46 Clumped Platelets Not Reportable 12/01/17 21:46 Plt Clumps, EDTA Not Reportable 12/01/17 21:46 Large Platelets Not Reportable 12/01/17 21:46 Giant Platelets Not Reportable 12/01/17 21:46 Platelet Satelliting Not Reportable 12/01/17 21:46 Plt Morphology Comment Not Reportable 12/01/17 21:46 RBC Morphology Not Reportable 12/01/17 21:46 Dimorphic RBCs Not Reportable 12/01/17 21:46 Polychromasia Not Reportable 12/01/17 21:46 Hypochromasia Not Reportable 12/01/17 21:46 Poikilocytosis Few 12/01/17 21:46 Anisocytosis Few 12/01/17 21:46 Microcytosis Not Reportable 12/01/17 21:46 Macrocytosis Not Reportable 12/01/17 21:46 Spherocytes Not Reportable 12/01/17 21:46 Pappenheimer Bodies Not Reportable 12/01/17 21:46 Sickle Cells Not Reportable 12/01/17 21:46 Target Cells Not Reportable 12/01/17 21:46 Tear Drop Cells Not Reportable 12/01/17 21:46 Ovalocytes Not Reportable 12/01/17 21:46 Helmet Cells Not Reportable 12/01/17 21:46 Stapleton-[place] Bodies Not Reportable 12/01/17 21:46 [place] Rings Not Reportable 12/01/17 21:46 [place]ummer Cells Not Reportable 12/01/17 21:46 Bite Cells Not Reportable 12/01/17 21:46 Crenated Cell Not Reportable 12/01/17 21:46 Elliptocytes Not Reportable 12/01/17 21:46 Acanthocytes (Spur) Not Reportable 12/01/17 21:46 Rouleaux Not Reportable 12/01/17 21:46 Hemoglobin C Crystals Not Reportable 12/01/17 21:46 Schistocytes Not Reportable 12/01/17 21:46 Malaria parasites Not Reportable 12/01/17 21:46 Figueroa Bodies Not Reportable 12/01/17 21:46 Hem Pathologist Commnt No 12/01/17 21:46 PT 12.7 Sec. (12.2-14.9) 12/01/17 21:46 INR 0.91 (0.87-1.13) 12/01/17 21:46 APTT 26.1 Sec. (24.2-36.6) 12/01/17 21:46 D-Dimer 1167.06 ng/mlDDU (0-234) H 12/01/17 21:46 POC ABG pH 7.439 (7.35-7.45) 12/03/17 10:25 POC ABG pCO2 40.9 (35-45) 12/03/17 10:25 POC ABG pO2 64 (80-105) L 12/03/17 10:25 POC ABG HCO3 27.7 12/03/17 10:25 POC ABG Total CO2 29 12/03/17 10:25 POC ABG O2 Sat 93 12/03/17 10:25 POC ABG Base Excess 4 12/03/17 10:25 FiO2 21 % 12/03/17 10:25 Sodium 139 mmol/L (137-145) 12/03/17 05:19 Potassium 4.1 mmol/L (3.6-5.0) 12/03/17 05:19 Chloride 100.9 mmol/L (98-107) 12/03/17 05:19 Carbon Dioxide 29 mmol/L (22-30) 12/03/17 05:19 Anion Gap 13 mmol/L 12/03/17 05:19 BUN 7 mg/dL (7-17) 12/03/17 05:19 Creatinine 0.7 mg/dL (0.7-1.2) 12/03/17 05:19 Estimated GFR > 60 ml/min 12/03/17 05:19 BUN/Creatinine Ratio 10 % 12/03/17 05:19 Glucose 85 mg/dL (65-100) 12/03/17 05:19 Calcium 9.2 mg/dL (8.4-10.2) 12/03/17 05:19 Troponin T < 0.010 ng/mL (0.00-0.029) 12/02/17 03:35 CA 27-29 38 U/mL (<38) H 12/03/17 09:28 HCG, Qual Positive (Negative) 12/01/17 21:46 HCG, Quant < 2 mIU/mL (0-4) 12/02/17 02:01 Fluid Type Thoracentesis 12/02/17 Unknown Fluid Color Yellow 02/08/18 Unknown Fluid Appearance Clear 12/02/17 Unknown Fluid pH 7.393 12/02/17 Unknown Fluid WBC 118 /mm3 12/02/17 Unknown Fluid RBC 334 /mm3 12/02/17 Unknown Fluid Seg Neutrophils 5.0 % 12/02/17 Unknown Fluid Lymphocytes 59.0 % 12/02/17 Unknown Fluid Reactive Lymphs 0 % 12/02/17 Unknown Fluid Monocytes 36.0 % 12/02/17 Unknown Fluid Eosinophils 0 % 12/02/17 Unknown Fluid Basophils 0 % 12/02/17 Unknown Blood Type B POSITIVE 12/02/17 01:15 Antibody Screen Negative 12/02/17 01:15
[2017-12-05] MEDS: MORPHINE IV PRN (22:14)
--- NOTE | 2017-12-05 23:24 | Progress Note ---
Assessment and Plan 12/05/17 Patient alert, awake. Resting on room air.O2 saturation 95%. Denies chest pain or shortness of breath. Pleural fluid cytology reported negative for malignant cells. Pleural fluid cell count wbc 118 rbc 334 which are not high. Pleural fluid chemistry results still pending Pelvic ultrasound reported limited study. In homogenous uterus has been reported. Not reported status on Ovaries. Recommend to get ultrasound dedicated to Ovaries. If any Ovarian mass present, consider Meighs syndrome. Patient scheduled for liver biopsy under CT tomorrow. If liver biopsy does not give diagnosis, consider Percutaneous biopsy of pleural based lung nodules or massess, - Patient Problems (1) Pleural effusion, right Current Visit: Yes Status: Acute Plan to address problem: Patient undergone right thoracentesis Pleural fluid cytology reported negative for malignant cells. Pleural fluid cell count wbc 118 rbc 334 which are not high. Pleural fluid chemistry results still pending. Pelvic ultrasound reported limited study. In homogenous uterus has been reported. Not reported status on Ovaries. Recommend to get ultrasound dedicated to Ovaries. If any Ovarian mass present, consider Meighs syndrome. (2) Breast mass Current Visit: Yes Status: Acute Plan to address problem: General surgery consulted. Already oncology consulted. Subjective Date of service: 12/05/17 Interval history: Patient alert, awake. Resting on room air.O2 saturation 95%. Denies chest pain or shortness of breath. Pleural fluid cytology reported negative for malignant cells. Pleural fluid cell count wbc 118 rbc 334 which are not high. Pleural fluid chemistry results still pending. Pelvic ultrasound reported limited study. In homogenous uterus has been reported. Not reported status on Ovaries. Recommend to get ultrasound dedicated to Ovaries. If any Ovarian mass present, consider Meighs syndrome. Patient scheduled for liver biopsy under CT tomorrow. If liver biopsy does not give diagnosis, consider Percutaneous biopsy of pleural based lung nodules or massess, Objective Vital Signs - 12hr 12/05/17 12/05/17 12/05/17 14:41 15:28 17:18 Temperature 97.9 F Pulse Rate 129 H Pulse Rate [ 120 H Anterior Bilateral Throughout] Pulse Rate [ 116 H Anterior Right Throughout] Respiratory 20 Rate Respiratory 20 Rate [Anterior Bilateral Throughout] Respiratory 20 Rate [Anterior Right Throughout] Blood Pressure 127/94 O2 Sat by Pulse 96 Oximetry 12/05/17 20:16 Temperature 97.6 F Pulse Rate 122 H Pulse Rate [ Anterior Bilateral Throughout] Pulse Rate [ Anterior Right Throughout] Respiratory 16 Rate Respiratory Rate [Anterior Bilateral Throughout] Respiratory Rate [Anterior Right Throughout] Blood Pressure 128/94 O2 Sat by Pulse 95 Oximetry Constitutional: no acute distress, alert Eyes: non-icteric ENT: oropharynx moist Neck: supple, no JVD Ascultation: Right: diminished breath sounds Cardiovascular: regular rate and rhythm Gastrointestinal: normoactive bowel sounds, soft, non-tender Integumentary: normal Extremities: no cyanosis, no edema Neurologic: normal mental status, non-focal exam, pupils equal and round, CN II- XII normal Psychiatric: mood appropriate CBC and BMP: 12/03/17 05:19 12/03/17 05:19 ABG, PT/INR, D-dimer: ABG POC ABG pH 7.439 (7.35-7.45) 12/03/17 10:25 POC ABG pCO2 40.9 (35-45) 12/03/17 10:25 POC ABG pO2 64 (80-105) L 12/03/17 10:25 POC ABG HCO3 27.7 12/03/17 10:25 POC ABG Total CO2 29 12/03/17 10:25 POC ABG O2 Sat 93 12/03/17 10:25 PT/INR, D-dimer PT 12.7 Sec. (12.2-14.9) 12/01/17 21:46 INR 0.91 (0.87-1.13) 12/01/17 21:46 D-Dimer 1167.06 ng/mlDDU (0-234) H 12/01/17 21:46 Abnormal lab findings: Abnormal Labs 12/01/17 12/01/17 12/01/17 21:46 21:46 21:46 WBC 14.1 H RBC 5.96 H Hgb 14.4 H Hct 45.8 H MCV 77 L MCH 24 L RDW 15.4 H Plt Count 460 H Lymph % (Auto) [place] % (Auto) [place] # Seg Neutrophils % Monocytes % (Manual) 13.0 H Seg Neutrophils # Man 9.9 H Monocytes # (Manual) 1.8 H D-Dimer 1167.06 H POC ABG pO2 Chloride 93.7 L BUN 5 L Creatinine 0.6 L Glucose 101 H Calcium 10.7 H CA 27-29 12/03/17 12/03/1718 05:19 09:28 10:25 WBC RBC 5.17 H Hgb Hct MCV 77 L MCH 25 L RDW 15.5 H Plt Count Lymph % (Auto) 11.3 L [place] % (Auto) 15.4 H [place] # 1.6 H Seg Neutrophils % 71.6 H Monocytes % (Manual) Seg Neutrophils # Man Monocytes # (Manual) D-Dimer POC ABG pO2 64 L Chloride BUN Creatinine Glucose Calcium CA 27-29 38 H
[2017-12-05] MEDS: AMBIEN PO PRN (23:53)
[2017-12-06] MEDS: ATROVENT IH SCH ×3 (00:02→17:13)
[2017-12-06 07:12] LABS: Amylase,Body Fluid 14; LDH,Body Fluid 167; Total Protein,Body Fluid 4.1 (15.0-45.0)
[2017-12-06] MEDS: XOPENEX IH PRN ×2 (08:10→17:14)
--- NOTE | 2017-12-06 09:50 | Hem/Onc Progress Note ---
Assessment and Plan Liver biopsy ordered for today. Pleural fluid cytology negative. Discussed with patient. Subjective Date of service: 12/06/17 Interval history: Patient anxious but feels better. Shortness of breath has improved. Appetite is coming back. Pathology on pleural fluid negative. Liver biopsy today Objective - Constitutional Vitals: Last Vital Signs Temp 98.4 F 12/06/17 00:58 Pulse 113 H 12/06/17 04:00 Resp 20 12/06/17 00:58 BP 110/57 12/06/17 00:58 Pulse Ox 94 12/06/17 00:52 Pain Intensity (0-10): denies any pain General appearance: mild distress Performance status: 1-light work, ambulatory - Neck Neck: supple - Respiratory Respiratory: right: diminished - Cardiovascular Rhythm: regular - Gastrointestinal General gastrointestinal: Present: soft - Labs Lab Results: Laboratory Results - last 24 hr 12/02/17 Unknown Fluid Glucose 83 H Fluid Total Protein 4.1 L Fluid Albumin 2.2 Fluid LDH 167 Fluid Amylase 14
--- NOTE | 2017-12-06 10:05 | Progress Note ---
Assessment and Plan Assessment and plan: Patient is a 37 year old female with no past medical history who presented to the ER with complaints of shortness of breath going on for over 2 weeks, worse with ambulation and no associated chest pain, nausea, vomiting, diarrhea or fever. Patient reports treatment with amoxicilin and prednisone from an urgent care center with no improvement. She presented to the ER after she noted worsening shortness of breath, and back pain. On arrival was noted to have showed complete atelectasis of the RUL with near complete collapse of the right middle and right lower lobes, extensive metastatic disease throughout the right middle and right lower lobes, pleural fluid occupying the entirety of the right hemithorax with moderate mass effect and mediastinal shift to the left, metastatic pleural base nodules throughout the right hemithorax, moderate pleural effusion, multiple left pulmonary nodules, partial visualization of extensive metastatic disease seen throughout the liver, 1.8cm ovoid soft tissue nodular density in the right breast. She denies any tobacco history or family history of cancer. Acute on chronic Respiratory failure with hypoxia * Continue Nebs, oxygen support, Pulmonary consult noted * Repeat chest x-ray in a.m. Right Upper lobe pleural effusion * IR for diagnostic thoracentesis. Send labs * still persist despite thoracentesis * Follow labs cytology of this points from pathologist negative for any malignancy. Hepatic masses * Biopsy today Uterine mass * Await Banking And Finance Instructor * Also will defer to them about ovary dedicated ultrasound Left pulmonary nodule with mass effect * May eventually need CTS surgery. Breast Nodule * Discussed with Breast surgeon, will set up for outpatient evaluation Sinus tachycardia * Continue xopenex IN PLACE OF ALBUTEROL * Although overall medical condition can be the main culprit Insomnia * Ambien SIRS * Secondary to above. May also have underlying infection. start on broad specturm abx after cultueres * R/o Influenza Presumed Metastatic Disease * Consult Hematology oncology DVT/GI prophy Plan discussed with patient and family results of and discussed. History Interval history: Patient seen and examined this morning and reports improvement in shortness of breath still with cough nonproductive. for Biopsy today Denies any fever nausea vomiting or diarrhea. Hospitalist Physical - Physical exam Narrative exam: VITAL SIGNS: Reviewed. GENERAL: The patient appeared well nourished and normally developed. Vital signs as documented. HEAD: No signs of head trauma. EYES: Pupils are equal. Extraocular motions intact. EARS: Hearing grossly intact. MOUTH: Oropharynx is normal. NECK: No adenopathy, no JVD. CHEST: Chest with crackles breath sounds Right lobe . CARDIAC: Regular rate and rhythm. S1 and S2, without murmurs, gallops, or rubs. VASCULAR: No Edema. Peripheral pulses normal and equal in all extremities. ABDOMEN: Soft, without detectable tenderness. No sign of distention. No rebound or guarding, and no masses palpated. Bowel Sounds normal. MUSCULOSKELETAL: Good range of motion of all major joints. Extremities without clubbing, cyanosis or edema. NEUROLOGIC EXAM: Alert and oriented x 3. No focal sensory or strength deficits. Speech normal. Follows commands. PSYCHIATRIC: Mood normal. SKIN: No rash or lesions. - Constitutional Vitals: Temp Pulse Resp BP Pulse Ox 98.4 F 113 H 20 110/57 94 12/06/17 00:58 12/06/17 04:00 12/06/17 00:58 12/06/17 00:58 12/06/17 00:52 General appearance: Present: no acute distress, well-nourished Results - Labs CBC & Chem 7: 12/03/17 05:19 12/03/17 05:19 Labs: Laboratory Last Values WBC 10.2 K/mm3 (4.5-11.0) 12/03/17 05:19 RBC 5.17 M/mm3 (3.65-5.03) H 12/03/17 05:19 Hgb 12.7 gm/dl (10.1-14.3) 12/03/17 05:19 Hct 39.6 % (30.3-42.9) D 12/03/17 05:19 MCV 77 fl (79-97) L 12/03/17 05:19 MCH 25 pg (28-32) L 12/03/17 05:19 MCHC 32 % (30-34) 12/03/17 05:19 RDW 15.5 % (13.2-15.2) H 12/03/17 05:19 Plt Count 339 K/mm3 (140-440) 12/03/17 05:19 Lymph % (Auto) 11.3 % (13.4-35.0) L 12/03/17 05:19 [place] % (Auto) 15.4 % (0.0-7.3) H 12/03/17 05:19 Eos % (Auto) 0.8 % (0.0-4.3) 12/03/17 05:19 Baso % (Auto) 0.9 % (0.0-1.8) 12/03/17 05:19 Lymph # 1.2 K/mm3 (1.2-5.4) 12/03/17 05:19 [place] # 1.6 K/mm3 (0.0-0.8) H 12/03/17 05:19 Eos # 0.1 K/mm3 (0.0-0.4) 12/03/17 05:19 Baso # 0.1 K/mm3 (0.0-0.1) 12/03/17 05:19 Add Manual Diff Complete 12/01/17 21:46 Total Counted 100 12/01/17 21:46 Seg Neutrophils % 71.6 % (40.0-70.0) H 12/03/17 05:19 Seg Neuts % (Manual) 70.0 % (40.0-70.0) 12/01/17 21:46 Band Neutrophils % 0 % 12/01/17 21:46 Lymphocytes % (Manual) 17.0 % (13.4-35.0) 12/01/17 21:46 Reactive Lymphs % (Man) 0 % 12/01/17 21:46 Monocytes % (Manual) 13.0 % (0.0-7.3) H 12/01/17 21:46 Eosinophils % (Manual) 0 % (0.0-4.3) 12/01/17 21:46 Basophils % (Manual) 0 % (0.0-1.8) 12/01/17 21:46 Metamyelocytes % 0 % 12/01/17 21:46 Myelocytes % 0 % 12/01/17 21:46 Promyelocytes % 0 % 12/01/17 21:46 Blast Cells % 0 % 12/01/17 21:46 Nucleated RBC % Not Reportable 12/01/17 21:46 Seg Neutrophils # 7.3 K/mm3 (1.8-7.7) 12/03/17 05:19 Seg Neutrophils # Man 9.9 K/mm3 (1.8-7.7) H 12/01/17 21:46 Band Neutrophils # 0.0 K/mm3 12/01/17 21:46 Lymphocytes # (Manual) 2.4 K/mm3 (1.2-5.4) 12/01/17 21:46 Abs React Lymphs (Man) 0.0 K/mm3 12/01/17 21:46 Monocytes # (Manual) 1.8 K/mm3 (0.0-0.8) H 12/01/17 21:46 Eosinophils # (Manual) 0.0 K/mm3 (0.0-0.4) 12/01/17 21:46 Basophils # (Manual) 0.0 K/mm3 (0.0-0.1) 12/01/17 21:46 Metamyelocytes # 0.0 K/mm3 12/01/17 21:46 Myelocytes # 0.0 K/mm3 12/01/17 21:46 Promyelocytes # 0.0 K/mm3 12/01/17 21:46 Blast Cells # 0.0 K/mm3 12/01/17 21:46 WBC Morphology Not Reportable 12/01/17 21:46 Hypersegmented Neuts Not Reportable 12/01/17 21:46 Hyposegmented Neuts Not Reportable 12/01/17 21:46 Hypogranular Neuts Not Reportable 12/01/17 21:46 Smudge Cells Not Reportable 12/01/17 21:46 Toxic Granulation Not Reportable 12/01/17 21:46 Toxic Vacuolation Not Reportable 12/01/17 21:46 Dohle Bodies Not Reportable 12/01/17 21:46 Pelger-Huet Anomaly Not Reportable 12/01/17 21:46 Misty Rods Not Reportable 12/01/17 21:46 Platelet Estimate Appears normal 12/01/17 21:46 Clumped Platelets Not Reportable 12/01/17 21:46 Plt Clumps, EDTA Not Reportable 12/01/17 21:46 Large Platelets Not Reportable 12/01/17 21:46 Giant Platelets Not Reportable 12/01/17 21:46 Platelet Satelliting Not Reportable 12/01/17 21:46 Plt Morphology Comment Not Reportable 12/01/17 21:46 RBC Morphology Not Reportable 12/01/17 21:46 Dimorphic RBCs Not Reportable 12/01/17 21:46 Polychromasia Not Reportable 12/01/17 21:46 Hypochromasia Not Reportable 12/01/17 21:46 Poikilocytosis Few 12/01/17 21:46 Anisocytosis Few 12/01/17 21:46 Microcytosis Not Reportable 12/01/17 21:46 Macrocytosis Not Reportable 12/01/17 21:46 Spherocytes Not Reportable 12/01/17 21:46 Pappenheimer Bodies Not Reportable 12/01/17 21:46 Sickle Cells Not Reportable 12/01/17 21:46 Target Cells Not Reportable 12/01/17 21:46 Tear Drop Cells Not Reportable 12/01/17 21:46 Ovalocytes Not Reportable 12/01/17 21:46 Helmet Cells Not Reportable 12/01/17 21:46 [place] Bodies Not Reportable 12/01/17 21:46 [place] Rings Not Reportable 12/01/17 21:46 [place] Cells Not Reportable 12/01/17 21:46 Bite Cells Not Reportable 12/01/17 21:46 Crenated Cell Not Reportable 12/01/17 21:46 Elliptocytes Not Reportable 12/01/17 21:46 Acanthocytes (Spur) Not Reportable 12/01/17 21:46 Rouleaux Not Reportable 12/01/17 21:46 Hemoglobin C Crystals Not Reportable 12/01/17 21:46 Schistocytes Not Reportable 12/01/17 21:46 Malaria parasites Not Reportable 12/01/17 21:46 Figueroa Bodies Not Reportable 12/01/17 21:46 Hem Pathologist Commnt No 12/01/17 21:46 PT 12.7 Sec. (12.2-14.9) 12/01/17 21:46 INR 0.91 (0.87-1.13) 12/01/17 21:46 APTT 26.1 Sec. (24.2-36.6) 12/01/17 21:46 D-Dimer 1167.06 ng/mlDDU (0-234) H 12/01/17 21:46 POC ABG pH 7.439 (7.35-7.45) 12/03/17 10:25 POC ABG pCO2 40.9 (35-45) 12/03/17 10:25 POC ABG pO2 64 (80-105) L 12/03/17 10:25 POC ABG HCO3 27.7 12/03/17 10:25 POC ABG Total CO2 29 12/03/17 10:25 POC ABG O2 Sat 93 12/03/17 10:25 POC ABG Base Excess 4 12/03/17 10:25 FiO2 21 % 12/03/17 10:25 Sodium 139 mmol/L (137-145) 12/03/17 05:19 Potassium 4.1 mmol/L (3.6-5.0) 12/03/17 05:19 Chloride 100.9 mmol/L (98-107) 12/03/17 05:19 Carbon Dioxide 29 mmol/L (22-30) 12/03/17 05:19 Anion Gap 13 mmol/L 12/03/17 05:19 BUN 7 mg/dL (7-17) 12/03/17 05:19 Creatinine 0.7 mg/dL (0.7-1.2) 12/03/17 05:19 Estimated GFR > 60 ml/min 12/03/17 05:19 BUN/Creatinine Ratio 10 % 12/03/17 05:19 Glucose 85 mg/dL (65-100) 12/03/17 05:19 Calcium 9.2 mg/dL (8.4-10.2) 12/03/17 05:19 Troponin T < 0.010 ng/mL (0.00-0.029) 12/02/17 03:35 CA 27-29 38 U/mL (<38) H 12/03/17 09:28 HCG, Qual Positive (Negative) 12/01/17 21:46 HCG, Quant < 2 mIU/mL (0-4) 12/02/17 02:01 Fluid Type Thoracentesis 12/02/17 Unknown Fluid Color Yellow 12/02/17 Unknown Fluid Appearance Clear 12/02/17 Unknown Fluid pH 7.393 12/02/17 Unknown Fluid WBC 118 /mm3 12/02/17 Unknown Fluid RBC 334 /mm3 12/02/17 Unknown Fluid Seg Neutrophils 5.0 % 12/02/17 Unknown Fluid Lymphocytes 59.0 % 12/02/17 Unknown Fluid Reactive Lymphs 0 % 12/02/17 Unknown Fluid Monocytes 36.0 % 12/02/17 Unknown Fluid Eosinophils 0 % 12/02/17 Unknown Fluid Basophils 0 % 12/02/17 Unknown Fluid Glucose 83 mg/dL (40-70) H 12/02/17 Unknown Fluid Total Protein 4.1 (15.0-45.0) L 12/02/17 Unknown Fluid Albumin 2.2 g/dL 12/02/17 Unknown Fluid LDH 167 12/02/17 Unknown Fluid Amylase 14 12/02/17 Unknown Blood Type B POSITIVE 12/02/17 01:15 Antibody Screen Negative 12/02/17 01:15
[2017-12-06] MEDS: LEVAQUIN 750MG/150ML 750 MG/150 ML BAG IV SCH (10:21)
[2017-12-06] MEDS: PEPCID PO SCH ×2 (10:22→21:32)
[2017-12-06] MEDS ORDERED: SUBLIMAZE ONE (11:07)
[2017-12-06] MEDS ORDERED: VERSED IV ONE ×2 (11:13→11:16)
[2017-12-06] MEDS ORDERED: SUBLIMAZE IV ONE (11:16)
[2017-12-06] MEDS: MORPHINE IV PRN ×2 (12:59→17:49)
--- NOTE | 2017-12-06 13:00 | Cat Scan Report ---
CT BIOPSY LIVER History: Liver mass Description of procedure: Informed consent was obtained. Sterile technique was utilized. Moderate sedation was accomplished with Versed and fentanyl. The patient was sedated for 20 minutes. Cardiorespiratory monitoring was performed by R.N. Intraobserver time of [address] guidance, a 17-gauge introducer needle was advanced to the leading edge of a 4.7 x 2.7 cm mass in the anterior left hepatic lobe. 2 separate 18-gauge core biopsies were obtained. Pathology was present to handle the samples. No complications. Impression: Successful CT-guided biopsy of a left hepatic lobe mass as outlined above.
--- NOTE | 2017-12-06 13:05 | Procedure Note ---
Date of procedure: 12/06/17 Pre-op diagnosis: liver mass Post-op diagnosis: same Procedure: CT guided biopsy Findings: multiple liver masses Anesthesia: local, other (moderate sedation) Surgeon: CARA HERRING Estimated blood loss: none Pathology: list (18G core x 2) Specimen disposition: to lab Condition: stable Disposition: floor
--- NOTE | 2017-12-06 14:18 | Progress Note ---
Assessment and Plan Acute on chronic Respiratory failure with hypoxia Right pleural effusion SIRS Hepatic masses Uterine mass Breast Nodule Sinus tachycardia Insomnia Presumed Metastatic Disease (Pleural effusion is large, exudative, lymphocyte predominant and despite prior negative cytology probably malignant in this clinical context) - will send for chest tube placement and send more fluid fo analysis - may ultimately need a pleurx catheter if malignant vs VATS procedure - continue supplemental oxygen to keep O2 Sats > 90% - continue bronchodilators and pulmonary hygiene per RT - await needle biopsy path report on liver lesions - GI & VTE prophylaxis (lovenox started) - prn analgesia - BIPAP for increased work of breathing prn - continue other care per attending / other consulatnts ....prognosis guarded Subjective Date of service: 12/06/17 Principal diagnosis: Acute Hypoxemic Resp Failure; Large Right Pleural Effusion Interval history: Patient is seen today for: Pleural Effusion Seen and examined at bedside; 24hour events reviewed; nursing and respiratory care staff consulted; no adverse overnight events reported to me; Objective Vital Signs - 12hr 12/06/17 12/06/17 12/06/17 04:00 08:10 08:20 Temperature [ Post-Procedure] Pulse Rate 113 H Pulse Rate [ 127 H 118 H Anterior Bilateral Throughout] Pulse Rate [ Intra-Procedure ] Pulse Rate [ Post-Procedure] Pulse Rate [Pre -Procedure] Respiratory Rate Respiratory 20 20 Rate [Anterior Bilateral Throughout] Respiratory Rate [Intra- Procedure] Respiratory Rate [Post- Procedure] Respiratory Rate [Pre- Procedure] Blood Pressure [Intra- Procedure] Blood Pressure [Post-Procedure ] Blood Pressure [Pre-Procedure] O2 Sat by Pulse 97 Oximetry O2 Sat by Pulse Oximetry [ Intra-Procedure ] O2 Sat by Pulse Oximetry [Post -Procedure] O2 Sat by Pulse Oximetry [Pre- Procedure] 12/06/17 12/06/17 12/06/17 10:00 11:20 11:25 Temperature [ Post-Procedure] Pulse Rate Pulse Rate [ Anterior Bilateral Throughout] Pulse Rate [ 121 H Intra-Procedure ] Pulse Rate [ Post-Procedure] Pulse Rate [Pre 121 H -Procedure] Respiratory 20 Rate Respiratory Rate [Anterior Bilateral Throughout] Respiratory 17 Rate [Intra- Procedure] Respiratory Rate [Post- Procedure] Respiratory 26 H Rate [Pre- Procedure] Blood Pressure 142/100 [Intra- Procedure] Blood Pressure [Post-Procedure ] Blood Pressure 139/94 [Pre-Procedure] O2 Sat by Pulse Oximetry O2 Sat by Pulse 99 Oximetry [ Intra-Procedure ] O2 Sat by Pulse Oximetry [Post -Procedure] O2 Sat by Pulse 100 Oximetry [Pre- Procedure] 12/06/17 12/06/17 12/06/17 11:30 11:35 11:40 Temperature [ Post-Procedure] Pulse Rate Pulse Rate [ Anterior Bilateral Throughout] Pulse Rate [ 114 H 116 H Intra-Procedure ] Pulse Rate [ 119 H Post-Procedure] Pulse Rate [Pre -Procedure] Respiratory Rate Respiratory Rate [Anterior Bilateral Throughout] Respiratory 17 28 H Rate [Intra- Procedure] Respiratory 23 Rate [Post- Procedure] Respiratory Rate [Pre- Procedure] Blood Pressure 133/94 126/103 [Intra- Procedure] Blood Pressure 128/99 [Post-Procedure ] Blood Pressure [Pre-Procedure] O2 Sat by Pulse Oximetry O2 Sat by Pulse 99 99 Oximetry [ Intra-Procedure ] O2 Sat by Pulse 99 Oximetry [Post -Procedure] O2 Sat by Pulse Oximetry [Pre- Procedure] 12/06/17 12/06/17 12/06/17 11:45 11:50 11:55 Temperature [ 99.7 F H Post-Procedure] Pulse Rate Pulse Rate [ Anterior Bilateral Throughout] Pulse Rate [ Intra-Procedure ] Pulse Rate [ 116 H 118 H 120 H Post-Procedure] Pulse Rate [Pre -Procedure] Respiratory Rate Respiratory Rate [Anterior Bilateral Throughout] Respiratory Rate [Intra- Procedure] Respiratory 19 13 21 Rate [Post- Procedure] Respiratory Rate [Pre- Procedure] Blood Pressure [Intra- Procedure] Blood Pressure 116/91 112/93 118/94 [Post-Procedure ] Blood Pressure [Pre-Procedure] O2 Sat by Pulse Oximetry O2 Sat by Pulse Oximetry [ Intra-Procedure ] O2 Sat by Pulse 98 99 95 Oximetry [Post -Procedure] O2 Sat by Pulse Oximetry [Pre- Procedure] 12/06/17 12:00 Temperature [ Post-Procedure] Pulse Rate Pulse Rate [ Anterior Bilateral Throughout] Pulse Rate [ Intra-Procedure ] Pulse Rate [ 119 H Post-Procedure] Pulse Rate [Pre -Procedure] Respiratory Rate Respiratory Rate [Anterior Bilateral Throughout] Respiratory Rate [Intra- Procedure] Respiratory 20 Rate [Post- Procedure] Respiratory Rate [Pre- Procedure] Blood Pressure [Intra- Procedure] Blood Pressure 127/93 [Post-Procedure ] Blood Pressure [Pre-Procedure] O2 Sat by Pulse Oximetry O2 Sat by Pulse Oximetry [ Intra-Procedure ] O2 Sat by Pulse 93 Oximetry [Post -Procedure] O2 Sat by Pulse Oximetry [Pre- Procedure] Constitutional: no acute distress, alert Eyes: non-icteric ENT: oropharynx moist Neck: supple, no JVD Ascultation: Right: diminished breath sounds Cardiovascular: regular rate and rhythm Gastrointestinal: normoactive bowel sounds, soft, non-tender Integumentary: normal Extremities: no cyanosis, no edema Neurologic: normal mental status, non-focal exam, pupils equal and round, CN II- XII normal Psychiatric: mood appropriate CBC and BMP: 12/03/17 05:19 12/03/17 05:19 ABG, PT/INR, D-dimer: ABG POC ABG pH 7.439 (7.35-7.45) 12/03/17 10:25 POC ABG pCO2 40.9 (35-45) 12/03/17 10:25 POC ABG pO2 64 (80-105) L 12/03/17 10:25 POC ABG HCO3 27.7 12/03/17 10:25 POC ABG Total CO2 29 12/03/17 10:25 POC ABG O2 Sat 93 12/03/17 10:25 PT/INR, D-dimer PT 12.7 Sec. (12.2-14.9) 12/01/17 21:46 INR 0.91 (0.87-1.13) 12/01/17 21:46 D-Dimer 1167.06 ng/mlDDU (0-234) H 12/01/17 21:46 Abnormal lab findings: Abnormal Labs 12/01/17 12/01/17 12/01/17 21:46 21:46 21:46 WBC 14.1 H RBC 5.96 H Hgb 14.4 H Hct 45.8 H MCV 77 L MCH 24 L RDW 15.4 H Plt Count 460 H Lymph % (Auto) [place] % (Auto) [place] # Seg Neutrophils % Monocytes % (Manual) 13.0 H Seg Neutrophils # Man 9.9 H Monocytes # (Manual) 1.8 H D-Dimer 1167.06 H POC ABG pO2 Chloride 93.7 L BUN 5 L Creatinine 0.6 L Glucose 101 H Calcium 10.7 H CA 27-29 Fluid Glucose Fluid Total Protein 12/02/17 12/03/17 12/03/17 Unknown 05:19 09:28 WBC RBC 5.17 H Hgb Hct MCV 77 L MCH 25 L RDW 15.5 H Plt Count Lymph % (Auto) 11.3 L [place] % (Auto) 15.4 H [place] # 1.6 H Seg Neutrophils % 71.6 H Monocytes % (Manual) Seg Neutrophils # Man Monocytes # (Manual) D-Dimer POC ABG pO2 Chloride BUN Creatinine Glucose Calcium CA 27-29 38 H Fluid Glucose 83 H Fluid Total Protein 4.1 L 12/03/17 10:25 WBC RBC Hgb Hct MCV MCH RDW Plt Count Lymph % (Auto) [place] % (Auto) [place] # Seg Neutrophils % Monocytes % (Manual) Seg Neutrophils # Man Monocytes # (Manual) D-Dimer POC ABG pO2 64 L Chloride BUN Creatinine Glucose Calcium CA 27-29 Fluid Glucose Fluid Total Protein
--- NOTE | 2017-12-06 17:36 | Consultation ---
History of Present Illness Consult date: 12/05/17 Reason for consult: other (ovarian mass) History of present illness: Patient is a 37 year old female who presented to the ED with shortness of breath and was found to have ateletasis and pleural effusions and possible metastatic cancer. CT scan and ultrasound of abdomen and pelvis noted small uterine masses consistent with fibroids a normal appearing right ovary and a nonvisualized left ovary. Past History Past Medical History: asthma Past Surgical History: no surgical history Family/Genetic History: heart disease, hypertension Medications and Allergies Allergies Allergy/AdvReac Type Severity Reaction Status Date / Time avocado Allergy Angioedema Verified 12/01/17 21:29 Home Medications Medication Instructions Recorded Confirmed Last Taken Type ALBUTEROL Inhaler [Proair] 2 puff IH QID PRN 12/02/17 12/02/17 12/01/17 13:00 History Active Meds: Active Medications Acetaminophen (Tylenol) 650 mg PO Q4H PRN PRN Reason: Pain MILD(1-3)/Fever >100.5/MORA Bisacodyl (Dulcolax) 10 mg VT QDAY PRN PRN Reason: Constipation unrelieved by MOM Famotidine (Pepcid) 20 mg PO BID [facility] Last Admin: 12/06/17 10:22 Dose: 20 mg Levofloxacin/Dextrose (Levaquin 750mg/150ml) 750 mg in 150 mls @ 100 mls/hr IV Q24HR PRUDENCIO PRN Reason: Protocol Last Admin: 12/06/17 10:21 Dose: 100 mls/hr Ipratropium Ophiem (Atrovent) 0.5 mg IH Q8HRT [facility] Last Admin: 12/06/17 17:13 Dose: 0.5 mg Levalbuterol HCl (Xopenex) 0.63 mg IH PRN PRN PRN Reason: Shortness Of Breath Last Admin: 12/06/17 17:14 Dose: 0.63 mg Levalbuterol HCl (Xopenex) 1.25 mg IH Q8HRT PRN PRN Reason: Shortness Of Breath Last Admin: 12/05/17 14:44 Dose: 1.25 mg Magnesium Hydroxide (Milk Of Magnesia) 30 ml PO Q4H PRN PRN Reason: Constipation Morphine Sulfate (Morphine) 2 mg IV Q4H PRN PRN Reason: Pain, Moderate (4-6) Last Admin: 12/06/17 12:59 Dose: 2 mg Ondansetron HCl (Zofran) 4 mg IV Q4H PRN PRN Reason: Nausea Last Admin: 12/02/17 21:30 Dose: 4 mg Zolpidem Tartrate (Ambien) 5 mg PO QHS PRN PRN Reason: Sleep Last Admin: 12/05/17 23:53 Dose: 5 mg Review of Systems All systems: negative Respiratory: cough, shortness of breath, wheezing - Vital Signs Vital signs: Vital Signs Temp Pulse Resp BP Pulse Ox 98.2 F 145 H 20 163/112 97 12/01/17 21:29 12/01/17 21:29 12/01/17 21:29 12/01/17 21:29 12/01/17 21:29 Temp Pulse Resp BP Pulse Ox 98.7 F 120 H 20 125/93 94 12/06/17 16:37 12/06/17 16:37 12/06/17 16:37 12/06/17 16:37 12/06/17 16:37 - Physical Exam Breasts: Positive: deferred Abdomen: Positive: normal appearance, soft, normal bowel sounds Genitourinary (Female): Positive: normal external genitalia, normal perenium Uterus: Positive: other (deferred) Deep Tendon Reflex Grade: Normal +2 Results Result Diagrams: 12/03/17 05:19 12/03/17 05:19 Abnormal lab results 12/02/17 Range/Units Unknown Fluid Glucose 83 H (40-70) mg/dL Fluid Total Protein 4.1 L (15.0-45.0) All other labs normal. Assessment and Plan Patient is a 37 year old female with multiple medical issues including possible metastatic disease and incidental finding of fibroids on ultrasound. As fibroids have likely been present over time and are not causing any particular issue would suggest outpatient follow up after patient recovers from current health issue.
[2017-12-06] MEDS: ZOFRAN IV PRN (19:10)
[2017-12-07] MEDS: AMBIEN PO PRN ×2 (00:09→21:54)
[2017-12-07] MEDS: ATROVENT IH SCH ×4 (00:58→23:22)
[2017-12-07] MEDS: ZOFRAN IV PRN ×3 (08:27→21:55)
[2017-12-07] MEDS: MORPHINE IV PRN ×3 (08:27→22:02)
--- NOTE | 2017-12-07 09:03 | XRay Report ---
ROUTINE CHEST, TWO VIEWS: HISTORY: Right pleural effusion. There is complete opacification of the right lung presumably due to a large right pleural effusion has increased since the exam 3 days ago. The left lung remains generally clear. There is mediastinal shift to the left. Heart size is stable. The bony structures are intact. IMPRESSION: Large right pleural effusion with complete opacification of the right hemithorax.
--- NOTE | 2017-12-07 09:42 | Hem/Onc Progress Note ---
Assessment and Plan Awaiting liver biopsy. Chest x-ray does shows right-sided opacification. Continue to monitor Subjective Date of service: 12/07/17 Interval history: Patient anxious but feels better. Shortness of breath has improved. Appetite is coming back. Pathology on pleural fluid negative. Liver biopsy done yesterday Objective - Constitutional Vitals: Last Vital Signs Temp 98.6 F 12/07/17 06:18 Pulse 115 H 12/07/17 06:18 Resp 20 12/07/17 06:18 BP 132/94 12/07/17 06:18 Pulse Ox 96 12/07/17 06:18 General appearance: no acute distress Performance status: 3-limited selfcare - Neck Neck: supple - Respiratory Respiratory: right: diminished - Cardiovascular Rhythm: regular Extremities: No edema - Gastrointestinal General gastrointestinal: Present: soft - Labs Lab Results: Laboratory Results - last 24 hr 12/02/17 08:00 Miscellaneous Test Flexitest 1
[2017-12-07] MEDS: LEVAQUIN 750MG/150ML 750 MG/150 ML BAG IV SCH (09:58)
[2017-12-07] MEDS: PEPCID PO SCH ×2 (09:58→21:54)
[2017-12-07] MEDS: XOPENEX IH PRN (10:00)
--- NOTE | 2017-12-07 11:23 | Progress Note ---
Assessment and Plan Assessment and plan: Patient is a 37 year old female with no past medical history who presented to the ER with complaints of shortness of breath going on for over 2 weeks, worse with ambulation and no associated chest pain, nausea, vomiting, diarrhea or fever. Patient reports treatment with amoxicilin and prednisone from an urgent care center with no improvement. She presented to the ER after she noted worsening shortness of breath, and back pain. On arrival was noted to have showed complete atelectasis of the RUL with near complete collapse of the right middle and right lower lobes, extensive metastatic disease throughout the right middle and right lower lobes, pleural fluid occupying the entirety of the right hemithorax with moderate mass effect and mediastinal shift to the left, metastatic pleural base nodules throughout the right hemithorax, moderate pleural effusion, multiple left pulmonary nodules, partial visualization of extensive metastatic disease seen throughout the liver, 1.8cm ovoid soft tissue nodular density in the right breast. She denies any tobacco history or family history of cancer. Acute on chronic Respiratory failure with hypoxia * Continue Nebs, oxygen support, Pulmonary consult noted * Repeat chest x-ray Still with complete opacification * Pulmonary will discuss with interventional radiologist Right Upper lobe pleural effusion * IR for diagnostic thoracentesis. Send labs * still persist despite thoracentesis * pleural fluid cytology negative Hepatic masses * awaiting biopys report Uterine mass * Fibroid per [employer] [facility] Left pulmonary nodule with mass effect * May eventually need CTS surgery. Breast Nodule * Discussed with Breast surgeon, will set up for outpatient evaluation Sinus tachycardia * Continue xopenex IN PLACE OF ALBUTEROL * Although overall medical condition can be the main culprit Insomnia * Ambien SIRS * Secondary to above. May also have underlying infection. start on broad specturm abx after cultueres * R/o Influenza Presumed Metastatic Disease * Consult Hematology oncology DVT/GI prophy Plan discussed with patient and family results of and discussed. History Interval history: Patient seen and examined this morning and reports improvement in shortness of breath still with cough nonproductive. Denies any fever nausea vomiting or diarrhea. Hospitalist Physical - Physical exam Narrative exam: VITAL SIGNS: Reviewed. GENERAL: The patient appeared well nourished and normally developed. Vital signs as documented. HEAD: No signs of head trauma. EYES: Pupils are equal. Extraocular motions intact. EARS: Hearing grossly intact. MOUTH: Oropharynx is normal. NECK: No adenopathy, no JVD. CHEST: Chest with crackles breath sounds Right lobe . CARDIAC: Regular rate and rhythm. S1 and S2, without murmurs, gallops, or rubs. VASCULAR: No Edema. Peripheral pulses normal and equal in all extremities. ABDOMEN: Soft, without detectable tenderness. No sign of distention. No rebound or guarding, and no masses palpated. Bowel Sounds normal. MUSCULOSKELETAL: Good range of motion of all major joints. Extremities without clubbing, cyanosis or edema. NEUROLOGIC EXAM: Alert and oriented x 3. No focal sensory or strength deficits. Speech normal. Follows commands. PSYCHIATRIC: Mood normal. SKIN: No rash or lesions. - Constitutional Vitals: Temp Pulse Resp BP Pulse Ox 98.6 F 92 H 18 132/94 95 12/07/17 06:18 12/07/17 10:24 12/07/17 10:24 12/07/17 06:18 12/07/17 10:04 General appearance: Present: no acute distress, well-nourished Results - Labs CBC & Chem 7: 12/03/17 05:19 12/03/17 05:19 Labs: Laboratory Last Values WBC 10.2 K/mm3 (4.5-11.0) 12/03/17 05:19 RBC 5.17 M/mm3 (3.65-5.03) H 12/03/17 05:19 Hgb 12.7 gm/dl (10.1-14.3) 12/03/17 05:19 Hct 39.6 % (30.3-42.9) D 12/03/17 05:19 MCV 77 fl (79-97) L 12/03/17 05:19 MCH 25 pg (28-32) L 12/03/17 05:19 MCHC 32 % (30-34) 12/03/17 05:19 RDW 15.5 % (13.2-15.2) H 12/03/17 05:19 Plt Count 339 K/mm3 (140-440) 12/03/17 05:19 Lymph % (Auto) 11.3 % (13.4-35.0) L 12/03/17 05:19 [place] % (Auto) 15.4 % (0.0-7.3) H 12/03/17 05:19 Eos % (Auto) 0.8 % (0.0-4.3) 12/03/17 05:19 Baso % (Auto) 0.9 % (0.0-1.8) 12/03/17 05:19 Lymph # 1.2 K/mm3 (1.2-5.4) 12/03/17 05:19 [place] # 1.6 K/mm3 (0.0-0.8) H 12/03/17 05:19 Eos # 0.1 K/mm3 (0.0-0.4) 12/03/17 05:19 Baso # 0.1 K/mm3 (0.0-0.1) 12/03/17 05:19 Add Manual Diff Complete 12/01/17 21:46 Total Counted 100 12/01/17 21:46 Seg Neutrophils % 71.6 % (40.0-70.0) H 12/03/17 05:19 Seg Neuts % (Manual) 70.0 % (40.0-70.0) 12/01/17 21:46 Band Neutrophils % 0 % 12/01/17 21:46 Lymphocytes % (Manual) 17.0 % (13.4-35.0) 12/01/17 21:46 Reactive Lymphs % (Man) 0 % 12/01/17 21:46 Monocytes % (Manual) 13.0 % (0.0-7.3) H 12/01/17 21:46 Eosinophils % (Manual) 0 % (0.0-4.3) 12/01/17 21:46 Basophils % (Manual) 0 % (0.0-1.8) 12/01/17 21:46 Metamyelocytes % 0 % 12/01/17 21:46 Myelocytes % 0 % 12/01/17 21:46 Promyelocytes % 0 % 12/01/17 21:46 Blast Cells % 0 % 12/01/17 21:46 Nucleated RBC % Not Reportable 12/01/17 21:46 Seg Neutrophils # 7.3 K/mm3 (1.8-7.7) 12/03/17 05:19 Seg Neutrophils # Man 9.9 K/mm3 (1.8-7.7) H 12/01/17 21:46 Band Neutrophils # 0.0 K/mm3 12/01/17 21:46 Lymphocytes # (Manual) 2.4 K/mm3 (1.2-5.4) 12/01/17 21:46 Abs React Lymphs (Man) 0.0 K/mm3 12/01/17 21:46 Monocytes # (Manual) 1.8 K/mm3 (0.0-0.8) H 12/01/17 21:46 Eosinophils # (Manual) 0.0 K/mm3 (0.0-0.4) 12/01/17 21:46 Basophils # (Manual) 0.0 K/mm3 (0.0-0.1) 12/01/17 21:46 Metamyelocytes # 0.0 K/mm3 12/01/17 21:46 Myelocytes # 0.0 K/mm3 12/01/17 21:46 Promyelocytes # 0.0 K/mm3 12/01/17 21:46 Blast Cells # 0.0 K/mm3 12/01/17 21:46 WBC Morphology Not Reportable 12/01/17 21:46 Hypersegmented Neuts Not Reportable 12/01/17 21:46 Hyposegmented Neuts Not Reportable 12/01/17 21:46 Hypogranular Neuts Not Reportable 12/01/17 21:46 Smudge Cells Not Reportable 12/01/17 21:46 Toxic Granulation Not Reportable 12/01/17 21:46 Toxic Vacuolation Not Reportable 12/01/17 21:46 Dohle Bodies Not Reportable 12/01/17 21:46 Pelger-Huet Anomaly Not Reportable 12/01/17 21:46 Misty Rods Not Reportable 12/01/17 21:46 Platelet Estimate Appears normal 12/01/17 21:46 Clumped Platelets Not Reportable 12/01/17 21:46 Plt Clumps, EDTA Not Reportable 12/01/17 21:46 Large Platelets Not Reportable 12/01/17 21:46 Giant Platelets Not Reportable 12/01/17 21:46 Platelet Satelliting Not Reportable 12/01/17 21:46 Plt Morphology Comment Not Reportable 12/01/17 21:46 RBC Morphology Not Reportable 12/01/17 21:46 Dimorphic RBCs Not Reportable 12/01/17 21:46 Polychromasia Not Reportable 12/01/17 21:46 Hypochromasia Not Reportable 12/01/17 21:46 Poikilocytosis Few 12/01/17 21:46 Anisocytosis Few 12/01/17 21:46 Microcytosis Not Reportable 12/01/17 21:46 Macrocytosis Not Reportable 12/01/17 21:46 Spherocytes Not Reportable 12/01/17 21:46 Pappenheimer Bodies Not Reportable 12/01/17 21:46 Sickle Cells Not Reportable 12/01/17 21:46 Target Cells Not Reportable 12/01/17 21:46 Tear Drop Cells Not Reportable 12/01/17 21:46 Ovalocytes Not Reportable 12/01/17 21:46 Helmet Cells Not Reportable 12/01/17 21:46 Stapleton-Wooster Bodies Not Reportable 12/01/17 21:46 [place] Rings Not Reportable 12/01/17 21:46 Warden Cells Not Reportable 12/01/17 21:46 Bite Cells Not Reportable 12/01/17 21:46 Crenated Cell Not Reportable 12/01/17 21:46 Elliptocytes Not Reportable 12/01/17 21:46 Acanthocytes (Spur) Not Reportable 12/01/17 21:46 Rouleaux Not Reportable 12/01/17 21:46 Hemoglobin C Crystals Not Reportable 12/01/17 21:46 Schistocytes Not Reportable 12/01/17 21:46 Malaria parasites Not Reportable 12/01/17 21:46 Figueroa Bodies Not Reportable 12/01/17 21:46 Hem Pathologist Commnt No 12/01/17 21:46 PT 12.7 Sec. (12.2-14.9) 12/01/17 21:46 INR 0.91 (0.87-1.13) 12/01/17 21:46 APTT 26.1 Sec. (24.2-36.6) 12/01/17 21:46 D-Dimer 1167.06 ng/mlDDU (0-234) H 12/01/17 21:46 POC ABG pH 7.439 (7.35-7.45) 12/03/17 10:25 POC ABG pCO2 40.9 (35-45) 12/03/17 10:25 POC ABG pO2 64 (80-105) L 12/03/17 10:25 POC ABG HCO3 27.7 12/03/17 10:25 POC ABG Total CO2 29 12/03/17 10:25 POC ABG O2 Sat 93 12/03/17 10:25 POC ABG Base Excess 4 12/03/17 10:25 FiO2 21 % 12/03/17 10:25 Sodium 139 mmol/L (137-145) 12/03/17 05:19 Potassium 4.1 mmol/L (3.6-5.0) 12/03/17 05:19 Chloride 100.9 mmol/L (98-107) 12/03/17 05:19 Carbon Dioxide 29 mmol/L (22-30) 12/03/17 05:19 Anion Gap 13 mmol/L 12/03/17 05:19 BUN 7 mg/dL (7-17) 12/03/17 05:19 Creatinine 0.7 mg/dL (0.7-1.2) 12/03/17 05:19 Estimated GFR > 60 ml/min 12/03/17 05:19 BUN/Creatinine Ratio 10 % 12/03/17 05:19 Glucose 85 mg/dL (65-100) 12/03/17 05:19 Calcium 9.2 mg/dL (8.4-10.2) 12/03/17 05:19 Troponin T < 0.010 ng/mL (0.00-0.029) 12/02/17 03:35 CA 27-29 38 U/mL (<38) H 12/03/17 09:28 HCG, Qual Positive (Negative) 12/01/17 21:46 HCG, Quant < 2 mIU/mL (0-4) 12/02/17 02:01 Fluid Type Thoracentesis 12/02/17 Unknown Fluid Color Yellow 12/02/17 Unknown Fluid Appearance Clear 12/02/17 Unknown Fluid pH 7.393 12/02/17 Unknown Fluid WBC 118 /mm3 12/02/17 Unknown Fluid RBC 334 /mm3 12/02/17 Unknown Fluid Seg Neutrophils 5.0 % 12/02/17 Unknown Fluid Lymphocytes 59.0 % 12/02/17 Unknown Fluid Reactive Lymphs 0 % 12/02/17 Unknown Fluid Monocytes 36.0 % 12/02/17 Unknown Fluid Eosinophils 0 % 12/02/17 Unknown Fluid Basophils 0 % 12/02/17 Unknown Fluid Glucose 83 mg/dL (40-70) H 12/02/17 Unknown Fluid Total Protein 4.1 (15.0-45.0) L 12/02/17 Unknown Fluid Albumin 2.2 g/dL 12/02/17 Unknown Fluid LDH 167 12/02/17 Unknown Fluid Amylase 14 12/02/17 Unknown Miscellaneous Test Flexitest 1 12/02/17 08:00 Blood Type B POSITIVE 12/02/17 01:15 Antibody Screen Negative 12/02/17 01:15 - Imaging and Cardiology Chest x-ray: image reviewed (COMPLETE OPACIFICATION OF RIGHT LOBE)
[2017-12-07] MEDS: MILK OF MAGNESIA PO PRN (21:53)
[2017-12-08] MEDS: ATROVENT IH SCH ×2 (08:38→15:26)
[2017-12-08] MEDS: XOPENEX IH PRN ×3 (08:40→20:06)
--- NOTE | 2017-12-08 09:24 | Vascular Lab Report ---
LOWER EXTREMITY VENOUS DUPLEX: REASON FOR EXAM: Deep venous thrombosis. COMMENTS ON THE RIGHT: All veins visualized are freely compressible without evidence of internal echogenicity. Flow is spontaneous and phasic throughout. COMMENTS ON THE LEFT: All veins visualized are freely compressible without evidence of internal echogenicity. Flow is spontaneous and phasic throughout. IMPRESSION: No evidence of acute or chronic deep venous thrombosis in either lower extremity.
[2017-12-08] MEDS: PEPCID PO SCH ×2 (11:53→22:06)
[2017-12-08] MEDS: MORPHINE IV PRN ×2 (11:53→22:06)
[2017-12-08] MEDS: LEVAQUIN PO SCH (11:53)
[2017-12-08] MEDS: ZOFRAN IV PRN ×2 (11:53→22:06)
--- NOTE | 2017-12-08 12:35 | Consultation ---
History of Present Illness - Reason for Consult Consult date: 12/08/17 Right pleural effusion - History of Present Illness Patient presented with shortness of breath and on admission was found to have complete atelectasis of her right lung with fluid filling the entire pleural space. Additionally, on her CTA multiple metastatic lesions are present within both lung omer as well as her liver. She has an unknown primary. She has previously undergone biopsy of her hepatic lesions. She underwent a thoracentesis with immediate redevelopment of pleural fluid. Past History Past Medical History: No medical history Past Surgical History: No surgical history Social history: full code. denies: smoking, alcohol abuse, prescription drug abuse, IV drug use Family history: no significant family history Medications and Allergies Allergies Allergy/AdvReac Type Severity Reaction Status Date / Time avocado Allergy Angioedema Verified 12/01/17 21:29 Home Medications Medication Instructions Recorded Confirmed Last Taken Type ALBUTEROL Inhaler [Proair] 2 puff IH QID PRN 12/02/17 12/02/17 12/01/17 13:00 History Active Meds: Active Medications Acetaminophen (Tylenol) 650 mg PO Q4H PRN PRN Reason: Pain MILD(1-3)/Fever >100.5/MORA Bisacodyl (Dulcolax) 10 mg RI QDAY PRN PRN Reason: Constipation unrelieved by MOM Enoxaparin Sodium (Lovenox) 40 mg SUB-Q QDAY@2200 [facility] Famotidine (Pepcid) 20 mg PO BID [facility] Last Admin: 12/08/17 11:53 Dose: 20 mg Ipratropium [place] (Atrovent) 0.5 mg IH Q8HRT [facility] Last Admin: 12/08/17 08:38 Dose: 0.5 mg Levalbuterol HCl (Xopenex) 0.63 mg IH PRN PRN PRN Reason: Shortness Of Breath Last Admin: 12/08/17 08:40 Dose: 0.63 mg Levofloxacin (Levaquin) 750 mg PO Q24HR [facility] Last Admin: 12/08/17 11:53 Dose: 750 mg Magnesium Hydroxide (Milk Of Magnesia) 30 ml PO Q4H PRN PRN Reason: Constipation Last Admin: 12/07/17 21:53 Dose: 30 ml Morphine Sulfate (Morphine) 2 mg IV Q4H PRN PRN Reason: Pain, Moderate (4-6) Last Admin: 12/08/17 11:53 Dose: 2 mg Ondansetron HCl (Zofran) 4 mg IV Q4H PRN PRN Reason: Nausea Last Admin: 12/08/17 11:53 Dose: 4 mg Zolpidem Tartrate (Ambien) 5 mg PO QHS PRN PRN Reason: Sleep Last Admin: 12/07/17 21:54 Dose: 5 mg Review of Systems All systems: negative Exam - Constitutional Vitals: Temp Pulse Resp BP Pulse Ox 98.6 F 90 18 130/87 99 12/08/17 08:38 12/08/17 09:45 12/08/17 08:52 12/08/17 08:38 12/08/17 09:50 General appearance: Present: no acute distress - EENT Eyes: Present: PERRL ENT: hearing intact - Neck Neck: Present: supple, normal ROM - Respiratory Respiratory effort: normal - Extremities Extremities: no ischemia - Abdominal General gastrointestinal: Present: deferred - Rectal Rectal Exam: deferred - Integumentary Integumentary: Present: clear - Psychiatric Psychiatric: appropriate mood/affect, cooperative Results - Labs CBC & Chem 7: 12/03/17 05:19 12/03/17 05:19 Assessment and Plan Patient has what appears to be widely metastatic cancer to her liver and lungs. Unknown primary. We will schedule her for placement of a pigtail chest tube tomorrow. She may ultimately need to be converted to a Pleurx catheter prior to discharge.
--- NOTE | 2017-12-08 12:47 | Progress Note ---
Assessment and Plan Acute on chronic Respiratory failure with hypoxia Right pleural effusion SIRS Hepatic masses Uterine mass Breast Nodule Sinus tachycardia Insomnia Presumed Metastatic Disease (Pleural effusion is large, exudative, lymphocyte predominant and despite prior negative cytology probably malignant in this clinical context. There is increased yield for malignant cells with repeated thoracentesis) - will send for chest tube placement and send more fluid fo analysis, patient prefers to have another thoracentesis without a pleurx catheter for now. May ultimately need a pleurx catheter if malignant vs VATS procedure - continue supplemental oxygen to keep O2 Sats > 90% - continue bronchodilators and pulmonary hygiene per RT - await needle biopsy path report on liver lesions - GI & VTE prophylaxis - prn analgesia - BIPAP for increased work of breathing prn - continue other care per attending / other consultants Discussed cytology findings with the pathologist and the hepatic lesion was positive for malignancy. She has sent out the slides for more immunostains. ....prognosis guarded Subjective Date of service: 12/08/17 Principal diagnosis: Acute Hypoxemic Resp Failure; Large Right Pleural Effusion Interval history: Patient is seen today for: Pleural Effusion, hypoxic respiratory failure Seen and examined at bedside; 24hour events reviewed; nursing and respiratory care staff consulted; no adverse overnight events reported to me; Objective - Exam Narrative Exam: VITAL SIGNS: Reviewed. GENERAL: The patient appeared well nourished and normally developed. Vital signs as documented. HEAD: No signs of head trauma. EYES: Pupils are equal. Extraocular motions intact. EARS: Hearing grossly intact. MOUTH: Oropharynx is normal. NECK: No adenopathy, no JVD. CHEST: Chest with crackles breath sounds Right lobe . CARDIAC: Regular rate and rhythm. S1 and S2, without murmurs, gallops, or rubs. VASCULAR: No Edema. Peripheral pulses normal and equal in all extremities. ABDOMEN: Soft, without detectable tenderness. No sign of distention. No rebound or guarding, and no masses palpated. Bowel Sounds normal. MUSCULOSKELETAL: Good range of motion of all major joints. Extremities without clubbing, cyanosis or edema. NEUROLOGIC EXAM: Alert and oriented x 3. No focal sensory or strength deficits. Speech normal. Follows commands. PSYCHIATRIC: Mood normal. SKIN: No rash or lesions. Vital Signs - 12hr 12/08/17 12/08/17 12/08/17 05:22 07:36 08:38 Temperature 98.4 F 98.6 F 98.6 F Pulse Rate 105 H 104 H 104 H Pulse Rate [ Bilateral Throughout] Respiratory 20 18 18 Rate Respiratory Rate [Bilateral Throughout] Blood Pressure 117/88 130/87 Blood Pressure 130/87 [Left] O2 Sat by Pulse 99 100 100 Oximetry 12/08/17 12/08/17 12/08/17 08:42 08:52 09:45 Temperature Pulse Rate 90 Pulse Rate [ 100 H 104 H Bilateral Throughout] Respiratory Rate Respiratory 18 18 Rate [Bilateral Throughout] Blood Pressure Blood Pressure [Left] O2 Sat by Pulse Oximetry 12/08/17 09:50 Temperature Pulse Rate Pulse Rate [ Bilateral Throughout] Respiratory Rate Respiratory Rate [Bilateral Throughout] Blood Pressure Blood Pressure [Left] O2 Sat by Pulse 99 Oximetry Constitutional: no acute distress, alert Eyes: non-icteric ENT: oropharynx moist Neck: supple, no JVD Ascultation: Right: diminished breath sounds Cardiovascular: regular rate and rhythm Gastrointestinal: normoactive bowel sounds, soft, non-tender Integumentary: normal Extremities: no cyanosis, no edema Neurologic: normal mental status, non-focal exam, pupils equal and round, CN II- XII normal Psychiatric: mood appropriate CBC and BMP: 12/03/17 05:19 12/03/17 05:19 ABG, PT/INR, D-dimer: ABG POC ABG pH 7.439 (7.35-7.45) 12/03/17 10:25 POC ABG pCO2 40.9 (35-45) 12/03/17 10:25 POC ABG pO2 64 (80-105) L 12/03/17 10:25 POC ABG HCO3 27.7 12/03/17 10:25 POC ABG Total CO2 29 12/03/17 10:25 POC ABG O2 Sat 93 12/03/17 10:25 PT/INR, D-dimer PT 12.7 Sec. (12.2-14.9) 12/01/17 21:46 INR 0.91 (0.87-1.13) 12/01/17 21:46 D-Dimer 1167.06 ng/mlDDU (0-234) H 12/01/17 21:46 Abnormal lab findings: Abnormal Labs 12/01/17 12/01/17 12/01/17 21:46 21:46 21:46 WBC 14.1 H RBC 5.96 H Hgb 14.4 H Hct 45.8 H MCV 77 L MCH 24 L RDW 15.4 H Plt Count 460 H Lymph % (Auto) [place] % (Auto) [place] # Seg Neutrophils % Monocytes % (Manual) 13.0 H Seg Neutrophils # Man 9.9 H Monocytes # (Manual) 1.8 H D-Dimer 1167.06 H POC ABG pO2 Chloride 93.7 L BUN 5 L Creatinine 0.6 L Glucose 101 H Calcium 10.7 H CA 27-29 Fluid Glucose Fluid Total Protein 18 12/03/17 12/03/17 Unknown 05:19 09:28 WBC RBC 5.17 H Hgb Hct MCV 77 L MCH 25 L RDW 15.5 H Plt Count Lymph % (Auto) 11.3 L [place] % (Auto) 15.4 H [place] # 1.6 H Seg Neutrophils % 71.6 H Monocytes % (Manual) Seg Neutrophils # Man Monocytes # (Manual) D-Dimer POC ABG pO2 Chloride BUN Creatinine Glucose Calcium CA 27-29 38 H Fluid Glucose 83 H Fluid Total Protein 4.1 L 12/03/17 10:25 WBC RBC Hgb Hct MCV MCH RDW Plt Count Lymph % (Auto) [place] % (Auto) [place] # Seg Neutrophils % Monocytes % (Manual) Seg Neutrophils # Man Monocytes # (Manual) D-Dimer POC ABG pO2 64 L Chloride BUN Creatinine Glucose Calcium CA 27-29 Fluid Glucose Fluid Total Protein
--- NOTE | 2017-12-08 16:55 | Progress Note ---
Assessment and Plan Assessment and plan: Patient is a 37 year old female with no past medical history who presented to the ER with complaints of shortness of breath going on for over 2 weeks, worse with ambulation and no associated chest pain, nausea, vomiting, diarrhea or fever. Patient reports treatment with amoxicilin and prednisone from an urgent care center with no improvement. She presented to the ER after she noted worsening shortness of breath, and back pain. On arrival was noted to have showed complete atelectasis of the RUL with near complete collapse of the right middle and right lower lobes, extensive metastatic disease throughout the right middle and right lower lobes, pleural fluid occupying the entirety of the right hemithorax with moderate mass effect and mediastinal shift to the left, metastatic pleural base nodules throughout the right hemithorax, moderate pleural effusion, multiple left pulmonary nodules, partial visualization of extensive metastatic disease seen throughout the liver, 1.8cm ovoid soft tissue nodular density in the right breast. She denies any tobacco history or family history of cancer. Acute on chronic Respiratory failure with hypoxia * Continue Nebs, oxygen support, Pulmonary consult noted * Repeat chest x-ray Still with complete opacification * Pleurex catheter to be placed * Pulmonary will discuss with interventional radiologist Right Upper lobe pleural effusion * IR for diagnostic thoracentesis. Send labs * still persist despite thoracentesis * pleural fluid cytology negative Hepatic masses * pathology reveals malignant cells with unknown primary Uterine mass * Fibroid per [employer] Left pulmonary nodule with mass effect * May eventually need CTS surgery. Breast Nodule * Discussed with Breast surgeon, will set up for outpatient evaluation Sinus tachycardia * Continue xopenex IN PLACE OF ALBUTEROL * Although overall medical condition can be the main culprit Insomnia * Ambien SIRS * Secondary to above. May also have underlying infection. on broad specturm abx after cultueres * R/o Influenza Presumed Metastatic Disease * Consult Hematology oncology DVT/GI prophy Plan discussed with patient and family results of and discussed. Discussed findings in detail with the patient. History Interval history: Patient seen and examined this morning and reports improvement in shortness of breath still with cough nonproductive. Denies any fever nausea vomiting or diarrhea. Hospitalist Physical - Physical exam Narrative exam: VITAL SIGNS: Reviewed. GENERAL: The patient appeared well nourished and normally developed. Vital signs as documented. HEAD: No signs of head trauma. EYES: Pupils are equal. Extraocular motions intact. EARS: Hearing grossly intact. MOUTH: Oropharynx is normal. NECK: No adenopathy, no JVD. CHEST: Chest with crackles breath sounds Right lobe . CARDIAC: Regular rate and rhythm. S1 and S2, without murmurs, gallops, or rubs. VASCULAR: No Edema. Peripheral pulses normal and equal in all extremities. ABDOMEN: Soft, without detectable tenderness. No sign of distention. No rebound or guarding, and no masses palpated. Bowel Sounds normal. MUSCULOSKELETAL: Good range of motion of all major joints. Extremities without clubbing, cyanosis or edema. NEUROLOGIC EXAM: Alert and oriented x 3. No focal sensory or strength deficits. Speech normal. Follows commands. PSYCHIATRIC: Mood normal. SKIN: No rash or lesions. - Constitutional Vitals: Temp Pulse Resp BP Pulse Ox 98.6 F 112 H 18 130/87 99 12/08/17 08:38 12/08/17 15:42 12/08/17 15:42 12/08/17 08:38 12/08/17 09:50 General appearance: Present: no acute distress Results - Labs CBC & Chem 7: 12/03/17 05:19 12/03/17 05:19 Labs: Laboratory Last Values WBC 10.2 K/mm3 (4.5-11.0) 12/03/17 05:19 RBC 5.17 M/mm3 (3.65-5.03) H 12/03/17 05:19 Hgb 12.7 gm/dl (10.1-14.3) 12/03/17 05:19 Hct 39.6 % (30.3-42.9) D 12/03/17 05:19 MCV 77 fl (79-97) L 12/03/17 05:19 MCH 25 pg (28-32) L 12/03/17 05:19 MCHC 32 % (30-34) 12/03/17 05:19 RDW 15.5 % (13.2-15.2) H 12/03/17 05:19 Plt Count 339 K/mm3 (140-440) 12/03/17 05:19 Lymph % (Auto) 11.3 % (13.4-35.0) L 12/03/17 05:19 [place] % (Auto) 15.4 % (0.0-7.3) H 12/03/17 05:19 Eos % (Auto) 0.8 % (0.0-4.3) 12/03/17 05:19 Baso % (Auto) 0.9 % (0.0-1.8) 12/03/17 05:19 Lymph # 1.2 K/mm3 (1.2-5.4) 12/03/17 05:19 [place] # 1.6 K/mm3 (0.0-0.8) H 12/03/17 05:19 Eos # 0.1 K/mm3 (0.0-0.4) 12/03/17 05:19 Baso # 0.1 K/mm3 (0.0-0.1) 12/03/17 05:19 Add Manual Diff Complete 12/01/17 21:46 Total Counted 100 12/01/17 21:46 Seg Neutrophils % 71.6 % (40.0-70.0) H 12/03/17 05:19 Seg Neuts % (Manual) 70.0 % (40.0-70.0) 12/01/17 21:46 Band Neutrophils % 0 % 12/01/17 21:46 Lymphocytes % (Manual) 17.0 % (13.4-35.0) 12/01/17 21:46 Reactive Lymphs % (Man) 0 % 12/01/17 21:46 Monocytes % (Manual) 13.0 % (0.0-7.3) H 12/01/17 21:46 Eosinophils % (Manual) 0 % (0.0-4.3) 12/01/17 21:46 Basophils % (Manual) 0 % (0.0-1.8) 12/01/17 21:46 Metamyelocytes % 0 % 12/01/17 21:46 Myelocytes % 0 % 12/01/17 21:46 Promyelocytes % 0 % 12/01/17 21:46 Blast Cells % 0 % 12/01/17 21:46 Nucleated RBC % Not Reportable 12/01/17 21:46 Seg Neutrophils # 7.3 K/mm3 (1.8-7.7) 12/03/17 05:19 Seg Neutrophils # Man 9.9 K/mm3 (1.8-7.7) H 12/01/17 21:46 Band Neutrophils # 0.0 K/mm3 12/01/17 21:46 Lymphocytes # (Manual) 2.4 K/mm3 (1.2-5.4) 12/01/17 21:46 Abs React Lymphs (Man) 0.0 K/mm3 12/01/17 21:46 Monocytes # (Manual) 1.8 K/mm3 (0.0-0.8) H 12/01/17 21:46 Eosinophils # (Manual) 0.0 K/mm3 (0.0-0.4) 12/01/17 21:46 Basophils # (Manual) 0.0 K/mm3 (0.0-0.1) 12/01/17 21:46 Metamyelocytes # 0.0 K/mm3 12/01/17 21:46 Myelocytes # 0.0 K/mm3 12/01/17 21:46 Promyelocytes # 0.0 K/mm3 12/01/17 21:46 Blast Cells # 0.0 K/mm3 12/01/17 21:46 WBC Morphology Not Reportable 12/01/17 21:46 Hypersegmented Neuts Not Reportable 12/01/17 21:46 Hyposegmented Neuts Not Reportable 12/01/17 21:46 Hypogranular Neuts Not Reportable 12/01/17 21:46 Smudge Cells Not Reportable 12/01/17 21:46 Toxic Granulation Not Reportable 12/01/17 21:46 Toxic Vacuolation Not Reportable 12/01/17 21:46 Dohle Bodies Not Reportable 12/01/17 21:46 Pelger-Huet Anomaly Not Reportable 12/01/17 21:46 Misty Rods Not Reportable 12/01/17 21:46 Platelet Estimate Appears normal 12/01/17 21:46 Clumped Platelets Not Reportable 12/01/17 21:46 Plt Clumps, EDTA Not Reportable 12/01/17 21:46 Large Platelets Not Reportable 12/01/17 21:46 Giant Platelets Not Reportable 12/01/17 21:46 Platelet Satelliting Not Reportable 12/01/17 21:46 Plt Morphology Comment Not Reportable 12/01/17 21:46 RBC Morphology Not Reportable 12/01/17 21:46 Dimorphic RBCs Not Reportable 12/01/17 21:46 Polychromasia Not Reportable 12/01/17 21:46 Hypochromasia Not Reportable 12/01/17 21:46 Poikilocytosis Few 12/01/17 21:46 Anisocytosis Few 12/01/17 21:46 Microcytosis Not Reportable 12/01/17 21:46 Macrocytosis Not Reportable 12/01/17 21:46 Spherocytes Not Reportable 12/01/17 21:46 Pappenheimer Bodies Not Reportable 12/01/17 21:46 Sickle Cells Not Reportable 12/01/17 21:46 Target Cells Not Reportable 12/01/17 21:46 Tear Drop Cells Not Reportable 12/01/17 21:46 Ovalocytes Not Reportable 12/01/17 21:46 Helmet Cells Not Reportable 12/01/17 21:46 [place] Bodies Not Reportable 12/01/17 21:46 [place] Rings Not Reportable 12/01/17 21:46 Abram Cells Not Reportable 12/01/17 21:46 Bite Cells Not Reportable 12/01/17 21:46 Crenated Cell Not Reportable 12/01/17 21:46 Elliptocytes Not Reportable 12/01/17 21:46 Acanthocytes (Spur) Not Reportable 12/01/17 21:46 Rouleaux Not Reportable 12/01/17 21:46 Hemoglobin C Crystals Not Reportable 12/01/17 21:46 Schistocytes Not Reportable 12/01/17 21:46 Malaria parasites Not Reportable 12/01/17 21:46 [place] Bodies Not Reportable 12/01/17 21:46 Hem Pathologist Commnt No 12/01/17 21:46 PT 12.7 Sec. (12.2-14.9) 12/01/17 21:46 INR 0.91 (0.87-1.13) 12/01/17 21:46 APTT 26.1 Sec. (24.2-36.6) 12/01/17 21:46 D-Dimer 1167.06 ng/mlDDU (0-234) H 12/01/17 21:46 POC ABG pH 7.439 (7.35-7.45) 12/03/17 10:25 POC ABG pCO2 40.9 (35-45) 12/03/17 10:25 POC ABG pO2 64 (80-105) L 12/03/17 10:25 POC ABG HCO3 27.7 12/03/17 10:25 POC ABG Total CO2 29 12/03/17 10:25 POC ABG O2 Sat 93 12/03/17 10:25 POC ABG Base Excess 4 12/03/17 10:25 FiO2 21 % 12/03/17 10:25 Sodium 139 mmol/L (137-145) 12/03/17 05:19 Potassium 4.1 mmol/L (3.6-5.0) 12/03/17 05:19 Chloride 100.9 mmol/L (98-107) 12/03/17 05:19 Carbon Dioxide 29 mmol/L (22-30) 12/03/17 05:19 Anion Gap 13 mmol/L 12/03/17 05:19 BUN 7 mg/dL (7-17) 12/03/17 05:19 Creatinine 0.7 mg/dL (0.7-1.2) 12/03/17 05:19 Estimated GFR > 60 ml/min 12/03/17 05:19 BUN/Creatinine Ratio 10 % 12/03/17 05:19 Glucose 85 mg/dL (65-100) 12/03/17 05:19 Calcium 9.2 mg/dL (8.4-10.2) 12/03/17 05:19 Troponin T < 0.010 ng/mL (0.00-0.029) 12/02/17 03:35 CA 27-29 38 U/mL (<38) H 12/03/17 09:28 HCG, Qual Positive (Negative) 12/01/17 21:46 HCG, Quant < 2 mIU/mL (0-4) 12/02/17 02:01 Fluid Type Thoracentesis 12/02/17 Unknown Fluid Color Yellow 12/02/17 Unknown Fluid Appearance Clear 12/02/17 Unknown Fluid pH 7.393 12/02/17 Unknown Fluid WBC 118 /mm3 12/02/17 Unknown Fluid RBC 334 /mm3 12/02/17 Unknown Fluid Seg Neutrophils 5.0 % 12/02/17 Unknown Fluid Lymphocytes 59.0 % 12/02/17 Unknown Fluid Reactive Lymphs 0 % 12/02/17 Unknown Fluid Monocytes 36.0 % 12/02/17 Unknown Fluid Eosinophils 0 % 12/02/17 Unknown Fluid Basophils 0 % 12/02/17 Unknown Fluid Glucose 83 mg/dL (40-70) H 12/02/17 Unknown Fluid Total Protein 4.1 (15.0-45.0) L 12/02/17 Unknown Fluid Albumin 2.2 g/dL 12/02/17 Unknown Fluid LDH 167 12/02/17 Unknown Fluid Amylase 14 12/02/17 Unknown Miscellaneous Test Flexitest 1 12/02/17 08:00 Blood Type B POSITIVE 12/02/17 01:15 Antibody Screen Negative 12/02/17 01:15
[2017-12-08] MEDS: MILK OF MAGNESIA PO PRN (20:07)
[2017-12-08] MEDS: LOVENOX SUB-Q SCH (22:05)
[2017-12-08] MEDS: AMBIEN PO PRN (23:54)
[2017-12-09] MEDS: ATROVENT IH SCH ×4 (00:47→20:12)
[2017-12-09] MEDS ORDERED: VERSED ONE (08:45)
[2017-12-09] MEDS ORDERED: SUBLIMAZE ONE (08:46)
[2017-12-09] MEDS ORDERED: SUBLIMAZE IV ONE (08:46)
[2017-12-09] MEDS ORDERED: VERSED IV ONE (08:46)
--- NOTE | 2017-12-09 10:06 | Post Operative Note ---
Date of procedure: 12/09/17 Pre-op diagnosis: Large right pleural effusion Post-op diagnosis: same Procedure: CT guided chest tube placement - 1L removed ; attached to gravity drainage Anesthesia: local (w/ conscious sedation) Surgeon: CJ MARIA Estimated blood loss: minimal Condition: stable Disposition: floor
[2017-12-09] MEDS: LEVAQUIN PO SCH (10:55)
[2017-12-09] MEDS: PEPCID PO SCH ×2 (10:55→21:03)
--- NOTE | 2017-12-09 11:04 | Progress Note ---
Assessment and Plan Assessment and plan: Patient is a 37 year old female with no past medical history who presented to the ER with complaints of shortness of breath going on for over 2 weeks, worse with ambulation and no associated chest pain, nausea, vomiting, diarrhea or fever. Patient reports treatment with amoxicilin and prednisone from an urgent care center with no improvement. She presented to the ER after she noted worsening shortness of breath, and back pain. On arrival was noted to have showed complete atelectasis of the RUL with near complete collapse of the right middle and right lower lobes, extensive metastatic disease throughout the right middle and right lower lobes, pleural fluid occupying the entirety of the right hemithorax with moderate mass effect and mediastinal shift to the left, metastatic pleural base nodules throughout the right hemithorax, moderate pleural effusion, multiple left pulmonary nodules, partial visualization of extensive metastatic disease seen throughout the liver, 1.8cm ovoid soft tissue nodular density in the right breast. She denies any tobacco history or family history of cancer. Acute on chronic Respiratory failure with hypoxia * Continue Nebs, oxygen support, Pulmonary consult noted * Repeat chest x-ray Still with complete opacification * Chest tube placement today. 1 L of fluid was removed. Mild temp the temperature post procedure will revaluate resolved with Tylenol * Pulmonary will discuss with interventional radiologist Right Upper lobe pleural effusion * IR for diagnostic thoracentesis. Send labs * still persist despite thoracentesis * pleural fluid cytology negative Hepatic masses * pathology reveals malignant cells with unknown primary suspicion is that this may be breast primary. Await specialist pains. Uterine mass * Fibroid per ENGAGEMENT DIRECTOR Left pulmonary nodule with mass effect * May eventually need CTS surgery. Breast Nodule * Discussed with Breast surgeon, will set up for outpatient evaluation Sinus tachycardia * Continue xopenex IN PLACE OF ALBUTEROL * Although overall medical condition can be the main culprit Insomnia * Ambien SIRS * Secondary to above. May also have underlying infection. on broad specturm abx after cultueres * R/o Influenza Presumed Metastatic Disease * Consult Hematology oncology DVT/GI prophy Plan discussed with patient and family results of and discussed. Discussed findings in detail with the patient. Discussed with oncologist will proceed with placing a chest port for chemotherapy and tricuspid discharge in a few days History Interval history: Patient seen and examined this morning and reports improvement in shortness of breath still with cough nonproductive. Denies any fever nausea vomiting or diarrhea. Chest tube placed, mild elevated temperature post chest tube placement , resolved with Tylenol. Hospitalist Physical - Physical exam Narrative exam: VITAL SIGNS: Reviewed. GENERAL: The patient appeared well nourished and normally developed. Vital signs as documented. HEAD: No signs of head trauma. EYES: Pupils are equal. Extraocular motions intact. EARS: Hearing grossly intact. MOUTH: Oropharynx is normal. NECK: No adenopathy, no JVD. CHEST: Chest with crackles breath sounds Right lobe . Right chest tube placements. CARDIAC: Regular rate and rhythm. S1 and S2, without murmurs, gallops, or rubs. VASCULAR: No Edema. Peripheral pulses normal and equal in all extremities. ABDOMEN: Soft, without detectable tenderness. No sign of distention. No rebound or guarding, and no masses palpated. Bowel Sounds normal. MUSCULOSKELETAL: Good range of motion of all major joints. Extremities without clubbing, cyanosis or edema. NEUROLOGIC EXAM: Alert and oriented x 3. No focal sensory or strength deficits. Speech normal. Follows commands. PSYCHIATRIC: Mood normal. SKIN: No rash or lesions. - Constitutional Vitals: Temp Pulse Resp BP Pulse Ox 98.7 F 105 H 14 105/75 97 12/09/17 10:00 12/09/17 10:30 12/09/17 10:30 12/09/17 10:30 12/09/17 10:30 General appearance: Present: no acute distress Results - Labs CBC & Chem 7: 12/03/17 05:19 12/03/17 05:19 Labs: Laboratory Last Values WBC 10.2 K/mm3 (4.5-11.0) 12/03/17 05:19 RBC 5.17 M/mm3 (3.65-5.03) H 12/03/17 05:19 Hgb 12.7 gm/dl (10.1-14.3) 12/03/17 05:19 Hct 39.6 % (30.3-42.9) D 12/03/17 05:19 MCV 77 fl (79-97) L 12/03/17 05:19 MCH 25 pg (28-32) L 12/03/17 05:19 MCHC 32 % (30-34) 12/03/17 05:19 RDW 15.5 % (13.2-15.2) H 12/03/17 05:19 Plt Count 339 K/mm3 (140-440) 12/03/17 05:19 Lymph % (Auto) 11.3 % (13.4-35.0) L 12/03/17 05:19 [place] % (Auto) 15.4 % (0.0-7.3) H 12/03/17 05:19 Eos % (Auto) 0.8 % (0.0-4.3) 12/03/17 05:19 Baso % (Auto) 0.9 % (0.0-1.8) 12/03/17 05:19 Lymph # 1.2 K/mm3 (1.2-5.4) 12/03/17 05:19 [place] # 1.6 K/mm3 (0.0-0.8) H 12/03/17 05:19 Eos # 0.1 K/mm3 (0.0-0.4) 12/03/17 05:19 Baso # 0.1 K/mm3 (0.0-0.1) 12/03/17 05:19 Add Manual Diff Complete 12/01/17 21:46 Total Counted 100 12/01/17 21:46 Seg Neutrophils % 71.6 % (40.0-70.0) H 12/03/17 05:19 Seg Neuts % (Manual) 70.0 % (40.0-70.0) 12/01/17 21:46 Band Neutrophils % 0 % 12/01/17 21:46 Lymphocytes % (Manual) 17.0 % (13.4-35.0) 12/01/17 21:46 Reactive Lymphs % (Man) 0 % 12/01/17 21:46 Monocytes % (Manual) 13.0 % (0.0-7.3) H 12/01/17 21:46 Eosinophils % (Manual) 0 % (0.0-4.3) 12/01/17 21:46 Basophils % (Manual) 0 % (0.0-1.8) 12/01/17 21:46 Metamyelocytes % 0 % 12/01/17 21:46 Myelocytes % 0 % 12/01/17 21:46 Promyelocytes % 0 % 12/01/17 21:46 Blast Cells % 0 % 12/01/17 21:46 Nucleated RBC % Not Reportable 12/01/17 21:46 Seg Neutrophils # 7.3 K/mm3 (1.8-7.7) 12/03/17 05:19 Seg Neutrophils # Man 9.9 K/mm3 (1.8-7.7) H 12/01/17 21:46 Band Neutrophils # 0.0 K/mm3 12/01/17 21:46 Lymphocytes # (Manual) 2.4 K/mm3 (1.2-5.4) 12/01/17 21:46 Abs React Lymphs (Man) 0.0 K/mm3 12/01/17 21:46 Monocytes # (Manual) 1.8 K/mm3 (0.0-0.8) H 12/01/17 21:46 Eosinophils # (Manual) 0.0 K/mm3 (0.0-0.4) 12/01/17 21:46 Basophils # (Manual) 0.0 K/mm3 (0.0-0.1) 12/01/17 21:46 Metamyelocytes # 0.0 K/mm3 12/01/17 21:46 Myelocytes # 0.0 K/mm3 12/01/17 21:46 Promyelocytes # 0.0 K/mm3 12/01/17 21:46 Blast Cells # 0.0 K/mm3 12/01/17 21:46 WBC Morphology Not Reportable 12/01/17 21:46 Hypersegmented Neuts Not Reportable 12/01/17 21:46 Hyposegmented Neuts Not Reportable 12/01/17 21:46 Hypogranular Neuts Not Reportable 12/01/17 21:46 Smudge Cells Not Reportable 12/01/17 21:46 Toxic Granulation Not Reportable 12/01/17 21:46 Toxic Vacuolation Not Reportable 12/01/17 21:46 Dohle Bodies Not Reportable 12/01/17 21:46 Pelger-Huet Anomaly Not Reportable 12/01/17 21:46 Misty Rods Not Reportable 12/01/17 21:46 Platelet Estimate Appears normal 12/01/17 21:46 Clumped Platelets Not Reportable 12/01/17 21:46 Plt Clumps, EDTA Not Reportable 12/01/17 21:46 Large Platelets Not Reportable 12/01/17 21:46 Giant Platelets Not Reportable 12/01/17 21:46 Platelet Satelliting Not Reportable 12/01/17 21:46 Plt Morphology Comment Not Reportable 12/01/17 21:46 RBC Morphology Not Reportable 12/01/17 21:46 Dimorphic RBCs Not Reportable 12/01/17 21:46 Polychromasia Not Reportable 12/01/17 21:46 Hypochromasia Not Reportable 12/01/17 21:46 Poikilocytosis Few 12/01/17 21:46 Anisocytosis Few 12/01/17 21:46 Microcytosis Not Reportable 12/01/17 21:46 Macrocytosis Not Reportable 12/01/17 21:46 Spherocytes Not Reportable 12/01/17 21:46 Pappenheimer Bodies Not Reportable 12/01/17 21:46 Sickle Cells Not Reportable 12/01/17 21:46 Target Cells Not Reportable 12/01/17 21:46 Tear Drop Cells Not Reportable 12/01/17 21:46 Ovalocytes Not Reportable 12/01/17 21:46 Helmet Cells Not Reportable 12/01/17 21:46 [place] Bodies Not Reportable 12/01/17 21:46 [place] Rings Not Reportable 12/01/17 21:46 Abram Cells Not Reportable 12/01/17 21:46 Bite Cells Not Reportable 12/01/17 21:46 Crenated Cell Not Reportable 12/01/17 21:46 Elliptocytes Not Reportable 12/01/17 21:46 Acanthocytes (Spur) Not Reportable 12/01/17 21:46 Rouleaux Not Reportable 12/01/17 21:46 Hemoglobin C Crystals Not Reportable 12/01/17 21:46 Schistocytes Not Reportable 12/01/17 21:46 Malaria parasites Not Reportable 12/01/17 21:46 Figueroa Bodies Not Reportable 12/01/17 21:46 Hem Pathologist Commnt No 12/01/17 21:46 PT 12.7 Sec. (12.2-14.9) 12/01/17 21:46 INR 0.91 (0.87-1.13) 12/01/17 21:46 APTT 26.1 Sec. (24.2-36.6) 12/01/17 21:46 D-Dimer 1167.06 ng/mlDDU (0-234) H 12/01/17 21:46 POC ABG pH 7.439 (7.35-7.45) 12/03/17 10:25 POC ABG pCO2 40.9 (35-45) 12/03/17 10:25 POC ABG pO2 64 (80-105) L 12/03/17 10:25 POC ABG HCO3 27.7 12/03/17 10:25 POC ABG Total CO2 29 12/03/17 10:25 POC ABG O2 Sat 93 12/03/17 10:25 POC ABG Base Excess 4 12/03/17 10:25 FiO2 21 % 12/03/17 10:25 Sodium 139 mmol/L (137-145) 12/03/17 05:19 Potassium 4.1 mmol/L (3.6-5.0) 12/03/17 05:19 Chloride 100.9 mmol/L (98-107) 12/03/17 05:19 Carbon Dioxide 29 mmol/L (22-30) 12/03/17 05:19 Anion Gap 13 mmol/L 12/03/17 05:19 BUN 7 mg/dL (7-17) 12/03/17 05:19 Creatinine 0.7 mg/dL (0.7-1.2) 12/03/17 05:19 Estimated GFR > 60 ml/min 12/03/17 05:19 BUN/Creatinine Ratio 10 % 12/03/17 05:19 Glucose 85 mg/dL (65-100) 12/03/17 05:19 Calcium 9.2 mg/dL (8.4-10.2) 12/03/17 05:19 Troponin T < 0.010 ng/mL (0.00-0.029) 12/02/17 03:35 CA 27-29 38 U/mL (<38) H 12/03/17 09:28 CA 125 Antigen 170 U/mL (<35) H 12/07/17 10:08 HCG, Qual Positive (Negative) 12/01/17 21:46 HCG, Quant < 2 mIU/mL (0-4) 12/02/17 02:01 Fluid Type Thoracentesis 12/02/17 Unknown Fluid Color Yellow 12/02/17 Unknown Fluid Appearance Clear 12/02/17 Unknown Fluid pH 7.393 12/02/17 Unknown Fluid WBC 118 /mm3 12/02/17 Unknown Fluid RBC 334 /mm3 12/02/17 Unknown Fluid Seg Neutrophils 5.0 % 12/02/17 Unknown Fluid Lymphocytes 59.0 % 12/02/17 Unknown Fluid Reactive Lymphs 0 % 12/02/17 Unknown Fluid Monocytes 36.0 % 12/02/17 Unknown Fluid Eosinophils 0 % 12/02/17 Unknown Fluid Basophils 0 % 12/02/17 Unknown Fluid Glucose 83 mg/dL (40-70) H 12/02/17 Unknown Fluid Total Protein 4.1 (15.0-45.0) L 12/02/17 Unknown Fluid Albumin 2.2 g/dL 12/02/17 Unknown Fluid LDH 167 12/02/17 Unknown Fluid Amylase 14 12/02/17 Unknown Miscellaneous Test Flexitest 1 12/02/17 08:00 Blood Type B POSITIVE 12/02/17 01:15 Antibody Screen Negative 12/02/17 01:15 - Imaging and Cardiology Chest x-ray: image reviewed (right chest tube in place)
[2017-12-09] MEDS: TYLENOL PO PRN (12:06)
[2017-12-09] MEDS: MORPHINE IV PRN ×2 (17:08→21:03)
[2017-12-09] MEDS: ROBITUSSIN AC PO PRN (21:01)
[2017-12-09] MEDS: LOVENOX SUB-Q SCH (21:01)
[2017-12-09] MEDS: MILK OF MAGNESIA PO PRN (21:02)
--- NOTE | 2017-12-09 22:06 | Progress Note ---
Assessment and Plan Patient alert, awake. Has right chest tube placement today.Patients Liver biopsy touch prep reported Malignant cells. Oncology consulted. Patient resting on room air. O2 saturation on room air 100%. , - Patient Problems (1) Pleural effusion, right Current Visit: Yes Status: Acute Plan to address problem: Patient has right chest tube placement today. (2) Breast mass Current Visit: Yes Status: Acute Plan to address problem: General surgery consulted. Oncology consulted. (3) Metastatic cancer Current Visit: Yes Status: Acute Plan to address problem: Oncology consulted. Subjective Date of service: 12/09/17 Principal diagnosis: Acute Hypoxemic Resp Failure; Large Right Pleural Effusion Interval history: Patient alert, awake. Has right chest tube placement today.Patients Liver biopsy touch prep reported Malignant cells. Oncology consulted. Patient resting on room air. O2 saturation on room air 100%. Objective Vital Signs - 12hr 12/09/17 12/09/17 12/09/17 10:00 10:15 10:30 Temperature Temperature [ 98.7 F Post-Procedure] Pulse Rate Pulse Rate [ Bilateral Throughout] Pulse Rate [ 103 H 108 H 105 H Post-Procedure] Respiratory Rate Respiratory Rate [Bilateral Throughout] Respiratory 11 L 14 14 Rate [Post- Procedure] Blood Pressure Blood Pressure 121/87 111/74 105/75 [Post-Procedure ] O2 Sat by Pulse Oximetry O2 Sat by Pulse 99 98 97 Oximetry [Post -Procedure] 12/09/17 12/09/17 12/09/17 11:09 11:10 11:48 Temperature 99.8 F H Temperature [ Post-Procedure] Pulse Rate 103 H 106 H 102 H Pulse Rate [ Bilateral Throughout] Pulse Rate [ Post-Procedure] Respiratory 18 Rate Respiratory Rate [Bilateral Throughout] Respiratory Rate [Post- Procedure] Blood Pressure 117/77 118/85 Blood Pressure [Post-Procedure ] O2 Sat by Pulse 99 98 98 Oximetry O2 Sat by Pulse Oximetry [Post -Procedure] 12/09/17 12/09/17 12/09/17 12:34 12:37 15:03 Temperature 98.7 F Temperature [ Post-Procedure] Pulse Rate 103 H 104 H 107 H Pulse Rate [ Bilateral Throughout] Pulse Rate [ Post-Procedure] Respiratory 20 Rate Respiratory Rate [Bilateral Throughout] Respiratory Rate [Post- Procedure] Blood Pressure 121/82 132/91 Blood Pressure [Post-Procedure ] O2 Sat by Pulse 98 98 99 Oximetry O2 Sat by Pulse Oximetry [Post -Procedure] 12/09/17 12/09/17 12/09/17 16:48 16:56 20:14 Temperature Temperature [ Post-Procedure] Pulse Rate Pulse Rate [ 111 H 112 H 98 H Bilateral Throughout] Pulse Rate [ Post-Procedure] Respiratory Rate Respiratory 20 20 22 Rate [Bilateral Throughout] Respiratory Rate [Post- Procedure] Blood Pressure Blood Pressure [Post-Procedure ] O2 Sat by Pulse Oximetry O2 Sat by Pulse Oximetry [Post -Procedure] 12/09/17 12/09/17 20:30 21:03 Temperature Temperature [ Post-Procedure] Pulse Rate Pulse Rate [ 99 H Bilateral Throughout] Pulse Rate [ Post-Procedure] Respiratory 20 Rate Respiratory 20 Rate [Bilateral Throughout] Respiratory Rate [Post- Procedure] Blood Pressure Blood Pressure [Post-Procedure ] O2 Sat by Pulse Oximetry O2 Sat by Pulse Oximetry [Post -Procedure] Constitutional: no acute distress, alert Eyes: non-icteric ENT: oropharynx moist Neck: supple, no JVD Ascultation: Right: diminished breath sounds Cardiovascular: regular rate and rhythm Gastrointestinal: normoactive bowel sounds, soft, non-tender Integumentary: normal Extremities: no cyanosis, no edema Neurologic: normal mental status, non-focal exam, pupils equal and round, CN II- XII normal Psychiatric: mood appropriate CBC and BMP: 12/03/17 05:19 12/03/17 05:19 ABG, PT/INR, D-dimer: ABG POC ABG pH 7.439 (7.35-7.45) 12/03/17 10:25 POC ABG pCO2 40.9 (35-45) 12/03/17 10:25 POC ABG pO2 64 (80-105) L 12/03/17 10:25 POC ABG HCO3 27.7 12/03/17 10:25 POC ABG Total CO2 29 12/03/17 10:25 POC ABG O2 Sat 93 12/03/17 10:25 PT/INR, D-dimer PT 12.7 Sec. (12.2-14.9) 12/01/17 21:46 INR 0.91 (0.87-1.13) 12/01/17 21:46 D-Dimer 1167.06 ng/mlDDU (0-234) H 02/07/18 21:46 Abnormal lab findings: Abnormal Labs 12/01/17 12/01/17 12/01/17 21:46 21:46 21:46 WBC 14.1 H RBC 5.96 H Hgb 14.4 H Hct 45.8 H MCV 77 L MCH 24 L RDW 15.4 H Plt Count 460 H Lymph % (Auto) [place] % (Auto) [place] # Seg Neutrophils % Monocytes % (Manual) 13.0 H Seg Neutrophils # Man 9.9 H Monocytes # (Manual) 1.8 H D-Dimer 1167.06 H POC ABG pO2 Chloride 93.7 L BUN 5 L Creatinine 0.6 L Glucose 101 H Calcium 10.7 H CA 27-29 CA 125 Antigen Fluid Glucose Fluid Total Protein 12/02/17 12/03/17 12/03/17 Unknown 05:19 09:28 WBC RBC 5.17 H Hgb Hct MCV 77 L MCH 25 L RDW 15.5 H Plt Count Lymph % (Auto) 11.3 L [place] % (Auto) 15.4 H [place] # 1.6 H Seg Neutrophils % 71.6 H Monocytes % (Manual) Seg Neutrophils # Man Monocytes # (Manual) D-Dimer POC ABG pO2 Chloride BUN Creatinine Glucose Calcium CA 27-29 38 H CA 125 Antigen Fluid Glucose 83 H Fluid Total Protein 4.1 L 12/03/17 12/07/17 10:25 10:08 WBC RBC Hgb Hct MCV MCH RDW Plt Count Lymph % (Auto) [place] % (Auto) [place] # Seg Neutrophils % Monocytes % (Manual) Seg Neutrophils # Man Monocytes # (Manual) D-Dimer POC ABG pO2 64 L Chloride BUN Creatinine Glucose Calcium CA 27-29 CA 125 Antigen 170 H Fluid Glucose Fluid Total Protein
--- NOTE | 2017-12-09 22:31 | Hem/Onc Progress Note ---
Assessment and Plan - Patient Problems (1) Breast mass Current Visit: Yes Status: Acute Plan to address problem: Most likely cancer. D/w Dr Saldaña. Plan is for mammo and US (2) Metastatic cancer Current Visit: Yes Status: Acute Plan to address problem: Spoke to Dr Knox. This appears to be breast cancer (3) Pleural effusion, right Current Visit: Yes Status: Acute Plan to address problem: She has a Chest Tube. Plan is for CV evaluation. IF no surgery planned then pleurex catheter placement. Surgery will place the port. Subjective Date of service: 12/09/17 Interval history: She is better in terms of breathing. Walked the hallways. Spoke to her sister. Objective - Constitutional Vitals: Last Vital Signs Temp 98.7 F 12/09/17 15:03 Pulse 99 H 12/09/17 20:30 Resp 20 12/09/17 21:03 BP 132/91 12/09/17 15:03 Pulse Ox 99 12/09/17 15:03 Pain Intensity (0-10): 3/10 General appearance: mild distress, cachectic Performance status: 2- selfcare, ambulatory - EENT Eyes: PERRL ENT: hearing intact Lymph node exam: negative cervical - Neck Neck: supple - Respiratory Respiratory effort: Positive: normal Respiratory: bilateral: CTA - Breasts Breasts: right: change in shape - Cardiovascular Rhythm: regular Heart Sounds: Present: S1 & S2 - Labs Lab Results: Laboratory Results - last 24 hr 12/07/17 10:08 CA 125 Antigen 170 H
[2017-12-09] MEDS ORDERED: DILAUDID IV PRN (23:32)
[2017-12-10] MEDS: ATROVENT IH SCH ×4 (01:01→20:32)
[2017-12-10] MEDS: DILAUDID IV PRN ×3 (05:47→22:56)
--- NOTE | 2017-12-10 09:10 | Hem/Onc Progress Note ---
Assessment and Plan d/w with patient and friend. Awaiting specifics on the liver biopsy. Patient will need chemotherapy and targeted therapy if HER-2 positive. For possible port placement today. Prognosis is guarded Subjective Date of service: 12/10/17 Interval history: Patient anxious but feels better. Shortness of breath has improved after chest tube. Appetite is coming back. Pathology on pleural fluid negative. Liver biopsy is attentive for malignancy. It seems that she has primary breast cancer Objective - Constitutional Vitals: Last Vital Signs Temp 98.9 F 12/10/17 04:09 Pulse 105 H 12/10/17 04:09 Resp 20 12/10/17 05:47 BP 110/78 12/10/17 04:09 Pulse Ox 99 12/10/17 04:09 General appearance: mild distress Performance status: 4-completely disabled - Neck Neck: supple - Respiratory Respiratory: right: diminished (chest tube present) - Cardiovascular Rhythm: regular - Gastrointestinal General gastrointestinal: Present: soft
[2017-12-10] MEDS: PEPCID PO SCH ×2 (12:14→22:55)
[2017-12-10] MEDS: LEVAQUIN PO SCH (12:14)
[2017-12-10] MEDS: XOPENEX IH PRN ×2 (12:30→20:33)
[2017-12-10] MEDS ORDERED: HEPARIN/NS 5000 UNIT/500ML(CATH LAB) 500 ML IR ONE (16:08)
[2017-12-10] MEDS ORDERED: NACL 0.9% 250ML 250 ML ONE (16:08)
[2017-12-10] MEDS ORDERED: XYLOCAINE 1%/ EPI 1:100,000 INFILTRATI ONE (16:08)
[2017-12-10] MEDS ORDERED: ANCEF/STERILE WATER 2 GM/20 ML 2 GM/20 ML SYRINGE IV ONE (16:09)
--- NOTE | 2017-12-10 16:24 | Event Note ---
Date: 12/10/17 37 year old female with metastatic likely right-sided breast cancer (patient reports right-sided breast mass). Originally planned for port placement, but canceled and deferred to Dr. Olmstead. However, surgery requested that we place the port to expedite her care due to nothing by mouth status.
[2017-12-10] MEDS: SUBLIMAZE ONE ×7 (16:44→17:33)
[2017-12-10] MEDS: VERSED ONE ×3 (16:44→17:00)
[2017-12-10] MEDS ORDERED: HEPARIN 10,000 UNITS/10 ML ONE (17:20)
--- NOTE | 2017-12-10 17:53 | Operative Report ---
Operative Report Operative Report: EXAM: 1. Ultrasound-guided puncture of the left internal jugular vein 2. Fluoroscopic-guided placement of a left internal jugular tunneled 8 Fr BARD port placement. 3. Contrast injection in the left internal jugular port DATE: 12/10/17 INDICATION: 37-year-old female with metastatic right-sided breast cancer requiring port placement. MEDICATIONS: Please see nursing report for full details. DEVICES: 8 Fr single lumen power port CONTRAST: 20 mL nonionic contrast HEAVY CLEANER: Jose Abad MD PROCEDURE: The risks, benefits, and alternatives were discussed and informed consent was obtained. The patient was transported to the angiography suite in satisfactory/ stable condition and was transported onto the angiography table. The patient's left internal jugular vein was assessed with ultrasound and determined to be patent prior to procedure. The patient was prepped and draped in a sterile fashion. The puncture site was anesthetized. Under sonographic guidance, the left internal jugular vein was punctured with a 21-gauge micropuncture needle and a 0.018 inch wire was advanced into the inferior vena cava. The micropuncture needle was exchanged for a transitional dilator and the wire was retracted into the right atrium to reymundo intravascular distance. The wire and inner dilator were removed. 0.035 inch wire was advanced through the transitional dilator into the inferior vena cava and into the left iliac veins. A suitable port pocket site was identified on the patient's chest inferior and lateral to the venotomy. The site was anesthetized with local anesthetic at the pocket and the track was anesthetized. Incision was made with a 15 blade extending approximately 2 cm. The port was created with the use of a hemostat and hemostasis was achieved with manual compression. The port pocket was irrigated. The port was tested and the port was attached to the tubing. The port was the retested and attached to the tunneling device. The port was placed in the pocket and then tunneled to the venotomy. The port tubing was cut to predetermined length. Over the 0.035 inch wire, serial dilatation was performed with ultimate placement of a peel-away sheath. The catheter was advanced through the peel- away sheath after the wire was removed and positioned centrally under fluoroscopic guidance. The peel-away sheath was removed. The pocket was closed in 2 layers with multiple deep interrupted 3-0 Vicryl sutures with a running subcuticular 4-0 Vicryl suture. The venotomy was closed with a single deep interrupted 3-0 Vicryl suture. Dermabond was applied to both sites and Steri-Strips were then applied. The port was access and portogram was performed demonstrating prompt flow into the right atrium. The port was the catheter was charged with heparin 150 units/ mL space. The patient was transferred from the angiography suite back to the floor in stable condition. FINDINGS: 1. Excellent flow was obtained through the port. 2. The catheter tip is in the right atrium. 3. The portogram demonstrates prompt flow into the right atrium. IMPRESSION: 1. Successful ultrasound and fluoroscopically guided placement of a left internal jugular tunneled 8 [place] Bard signal lumen power port.
[2017-12-10] MEDS: ZOFRAN IV PRN (19:11)
--- NOTE | 2017-12-10 19:17 | Progress Note ---
Assessment and Plan Patient alert, awake. Right chest tube Draining fluid..Patients Liver biopsy touch prep reported Malignant cells. Oncology consulted. Patient resting on 2 litres O2. O2 saturation 100%.Patient has Infusaport placement today. , - Patient Problems (1) Pleural effusion, right Current Visit: Yes Status: Acute Plan to address problem: Patient right chest tube draining fluid. (2) Breast mass Current Visit: Yes Status: Acute Plan to address problem: General surgery consulted. Oncology consulted. (3) Metastatic cancer Current Visit: Yes Status: Acute Plan to address problem: Oncology consulted. Subjective Date of service: 12/10/17 Principal diagnosis: Acute Hypoxemic Resp Failure; Large Right Pleural Effusion Interval history: Patient alert, awake. Right chest tube Draining fluid..Patients Liver biopsy touch prep reported Malignant cells. Oncology consulted. Patient resting on 2 litres O2. O2 saturation 100%.Patient has Infusaport placement today. Objective Vital Signs - 12hr 12/10/17 12/10/17 07:47 12:02 Temperature 98.1 F 97.9 F Pulse Rate 102 H 111 H Respiratory 18 20 Rate Blood Pressure 117/79 120/86 O2 Sat by Pulse 98 100 Oximetry Constitutional: no acute distress, alert Eyes: non-icteric ENT: oropharynx moist Neck: supple, no JVD Ascultation: Right: diminished breath sounds Cardiovascular: regular rate and rhythm Gastrointestinal: normoactive bowel sounds, soft, non-tender Integumentary: normal Extremities: no cyanosis, no edema Neurologic: normal mental status, non-focal exam, pupils equal and round, CN II- XII normal Psychiatric: mood appropriate CBC and BMP: 12/03/17 05:19 12/03/17 05:19 ABG, PT/INR, D-dimer: ABG POC ABG pH 7.439 (7.35-7.45) 12/03/17 10:25 POC ABG pCO2 40.9 (35-45) 12/03/17 10:25 POC ABG pO2 64 (80-105) L 12/03/17 10:25 POC ABG HCO3 27.7 12/03/17 10:25 POC ABG Total CO2 29 12/03/17 10:25 POC ABG O2 Sat 93 12/03/17 10:25 PT/INR, D-dimer PT 12.7 Sec. (12.2-14.9) 12/01/17 21:46 INR 0.91 (0.87-1.13) 12/01/17 21:46 D-Dimer 1167.06 ng/mlDDU (0-234) H 12/01/17 21:46 Abnormal lab findings: Abnormal Labs 12/01/17 12/01/17 12/01/17 21:46 21:46 21:46 WBC 14.1 H RBC 5.96 H Hgb 14.4 H Hct 45.8 H MCV 77 L MCH 24 L RDW 15.4 H Plt Count 460 H Lymph % (Auto) [place] % (Auto) [place] # Seg Neutrophils % Monocytes % (Manual) 13.0 H Seg Neutrophils # Man 9.9 H Monocytes # (Manual) 1.8 H D-Dimer 1167.06 H POC ABG pO2 Chloride 93.7 L BUN 5 L Creatinine 0.6 L Glucose 101 H Calcium 10.7 H CA 27-29 CA 125 Antigen Fluid Glucose Fluid Total Protein 12/02/17 12/03/17 12/03/17 Unknown 05:19 09:28 WBC RBC 5.17 H Hgb Hct MCV 77 L MCH 25 L RDW 15.5 H Plt Count Lymph % (Auto) 11.3 L [place] % (Auto) 15.4 H [place] # 1.6 H Seg Neutrophils % 71.6 H Monocytes % (Manual) Seg Neutrophils # Man Monocytes # (Manual) D-Dimer POC ABG pO2 Chloride BUN Creatinine Glucose Calcium CA 27-29 38 H CA 125 Antigen Fluid Glucose 83 H Fluid Total Protein 4.1 L 12/03/17 12/07/17 10:25 10:08 WBC RBC Hgb Hct MCV MCH RDW Plt Count Lymph % (Auto) [place] % (Auto) [place] # Seg Neutrophils % Monocytes % (Manual) Seg Neutrophils # Man Monocytes # (Manual) D-Dimer POC ABG pO2 64 L Chloride BUN Creatinine Glucose Calcium CA 27-29 CA 125 Antigen 170 H Fluid Glucose Fluid Total Protein
--- NOTE | 2017-12-10 20:46 | Progress Note ---
Assessment and Plan Assessment and plan: Patient is a 37 year old female with no past medical history who presented to the ER with complaints of shortness of breath going on for over 2 weeks, worse with ambulation and no associated chest pain, nausea, vomiting, diarrhea or fever. Patient reports treatment with amoxicilin and prednisone from an urgent care center with no improvement. She presented to the ER after she noted worsening shortness of breath, and back pain. On arrival was noted to have showed complete atelectasis of the RUL with near complete collapse of the right middle and right lower lobes, extensive metastatic disease throughout the right middle and right lower lobes, pleural fluid occupying the entirety of the right hemithorax with moderate mass effect and mediastinal shift to the left, metastatic pleural base nodules throughout the right hemithorax, moderate pleural effusion, multiple left pulmonary nodules, partial visualization of extensive metastatic disease seen throughout the liver, 1.8cm ovoid soft tissue nodular density in the right breast. She denies any tobacco history or family history of cancer. Acute on chronic Respiratory failure with hypoxia * Continue Nebs, oxygen support, Pulmonary consult noted * Repeat chest x-ray Still with complete opacification * Chest tube placement today. 1 L of fluid was removed. Mild temp the temperature post procedure will revaluate resolved with Tylenol Right Upper lobe pleural effusion * IR for diagnostic thoracentesis. * still persist despite thoracentesis. she is s/p chest tube placement * pleural fluid cytology negative Hepatic masses * pathology reveals malignant cells with unknown primary suspicion is that this may be breast primary. Await specialist * CHEST TUBE PLACED, PORT FOR TODAY Uterine mass * Fibroid per ORAL PATHOLOGIST Left pulmonary nodule with mass effect * May eventually need CTS surgery. Breast Nodule * Discussed with Breast surgeon, will set up for outpatient evaluation Sinus tachycardia * Continue xopenex IN PLACE OF ALBUTEROL * Although overall medical condition can be the main culprit Insomnia * Ambien SIRS * Secondary to above. May also have underlying infection. on broad specturm abx after cultueres * R/o Influenza Presumed Metastatic Disease * Consult Hematology oncology DVT/GI prophy Plan discussed with patient and family results of and discussed. Discussed findings in detail with the patient. Discussed with oncologist will proceed with placing a chest port for chemotherapy and tricuspid discharge in a few days History Interval history: Patient seen and examined she is status post chest tube placement on obtaining chest port for chemotherapy today. Hospitalist Physical - Physical exam Narrative exam: VITAL SIGNS: Reviewed. GENERAL: The patient appeared well nourished and normally developed. Vital signs as documented. HEAD: No signs of head trauma. EYES: Pupils are equal. Extraocular motions intact. EARS: Hearing grossly intact. MOUTH: Oropharynx is normal. NECK: No adenopathy, no JVD. CHEST: Chest with crackles breath sounds Right lobe . Right chest tube is intact and draining.. CARDIAC: Regular rate and rhythm. S1 and S2, without murmurs, gallops, or rubs. VASCULAR: No Edema. Peripheral pulses normal and equal in all extremities. ABDOMEN: Soft, without detectable tenderness. No sign of distention. No rebound or guarding, and no masses palpated. Bowel Sounds normal. MUSCULOSKELETAL: Good range of motion of all major joints. Extremities without clubbing, cyanosis or edema. NEUROLOGIC EXAM: Alert and oriented x 3. No focal sensory or strength deficits. Speech normal. Follows commands. PSYCHIATRIC: Mood normal. SKIN: No rash or lesions. - Constitutional Vitals: Temp Pulse Resp BP Pulse Ox 97.9 F 107 H 20 120/86 100 12/10/17 12:02 12/10/17 20:33 12/10/17 12:02 12/10/17 12:02 12/10/17 12:02 General appearance: Present: no acute distress Results - Labs CBC & Chem 7: 12/03/17 05:19 12/03/17 05:19 Labs: Laboratory Last Values WBC 10.2 K/mm3 (4.5-11.0) 12/03/17 05:19 RBC 5.17 M/mm3 (3.65-5.03) H 12/03/17 05:19 Hgb 12.7 gm/dl (10.1-14.3) 12/03/17 05:19 Hct 39.6 % (30.3-42.9) D 12/03/17 05:19 MCV 77 fl (79-97) L 12/03/17 05:19 MCH 25 pg (28-32) L 12/03/17 05:19 MCHC 32 % (30-34) 12/03/17 05:19 RDW 15.5 % (13.2-15.2) H 12/03/17 05:19 Plt Count 339 K/mm3 (140-440) 12/03/17 05:19 Lymph % (Auto) 11.3 % (13.4-35.0) L 12/03/17 05:19 [place] % (Auto) 15.4 % (0.0-7.3) H 12/03/17 05:19 Eos % (Auto) 0.8 % (0.0-4.3) 12/03/17 05:19 Baso % (Auto) 0.9 % (0.0-1.8) 12/03/17 05:19 Lymph # 1.2 K/mm3 (1.2-5.4) 12/03/17 05:19 [place] # 1.6 K/mm3 (0.0-0.8) H 12/03/17 05:19 Eos # 0.1 K/mm3 (0.0-0.4) 12/03/17 05:19 Baso # 0.1 K/mm3 (0.0-0.1) 12/03/17 05:19 Add Manual Diff Complete 12/01/17 21:46 Total Counted 100 12/01/17 21:46 Seg Neutrophils % 71.6 % (40.0-70.0) H 12/03/17 05:19 Seg Neuts % (Manual) 70.0 % (40.0-70.0) 12/01/17 21:46 Band Neutrophils % 0 % 12/01/17 21:46 Lymphocytes % (Manual) 17.0 % (13.4-35.0) 12/01/17 21:46 Reactive Lymphs % (Man) 0 % 12/01/17 21:46 Monocytes % (Manual) 13.0 % (0.0-7.3) H 12/01/17 21:46 Eosinophils % (Manual) 0 % (0.0-4.3) 12/01/17 21:46 Basophils % (Manual) 0 % (0.0-1.8) 12/01/17 21:46 Metamyelocytes % 0 % 12/01/17 21:46 Myelocytes % 0 % 12/01/17 21:46 Promyelocytes % 0 % 12/01/17 21:46 Blast Cells % 0 % 12/01/17 21:46 Nucleated RBC % Not Reportable 12/01/17 21:46 Seg Neutrophils # 7.3 K/mm3 (1.8-7.7) 12/03/17 05:19 Seg Neutrophils # Man 9.9 K/mm3 (1.8-7.7) H 12/01/17 21:46 Band Neutrophils # 0.0 K/mm3 12/01/17 21:46 Lymphocytes # (Manual) 2.4 K/mm3 (1.2-5.4) 12/01/17 21:46 Abs React Lymphs (Man) 0.0 K/mm3 12/01/17 21:46 Monocytes # (Manual) 1.8 K/mm3 (0.0-0.8) H 12/01/17 21:46 Eosinophils # (Manual) 0.0 K/mm3 (0.0-0.4) 12/01/17 21:46 Basophils # (Manual) 0.0 K/mm3 (0.0-0.1) 12/01/17 21:46 Metamyelocytes # 0.0 K/mm3 12/01/17 21:46 Myelocytes # 0.0 K/mm3 12/01/17 21:46 Promyelocytes # 0.0 K/mm3 12/01/17 21:46 Blast Cells # 0.0 K/mm3 12/01/17 21:46 WBC Morphology Not Reportable 12/01/17 21:46 Hypersegmented Neuts Not Reportable 12/01/17 21:46 Hyposegmented Neuts Not Reportable 12/01/17 21:46 Hypogranular Neuts Not Reportable 12/01/17 21:46 Smudge Cells Not Reportable 12/01/17 21:46 Toxic Granulation Not Reportable 12/01/17 21:46 Toxic Vacuolation Not Reportable 12/01/17 21:46 Dohle Bodies Not Reportable 12/01/17 21:46 Pelger-Huet Anomaly Not Reportable 12/01/17 21:46 Misty Rods Not Reportable 12/01/17 21:46 Platelet Estimate Appears normal 12/01/17 21:46 Clumped Platelets Not Reportable 12/01/17 21:46 Plt Clumps, EDTA Not Reportable 12/01/17 21:46 Large Platelets Not Reportable 12/01/17 21:46 Giant Platelets Not Reportable 12/01/17 21:46 Platelet Satelliting Not Reportable 12/01/17 21:46 Plt Morphology Comment Not Reportable 12/01/17 21:46 RBC Morphology Not Reportable 12/01/17 21:46 Dimorphic RBCs Not Reportable 12/01/17 21:46 Polychromasia Not Reportable 12/01/17 21:46 Hypochromasia Not Reportable 12/01/17 21:46 Poikilocytosis Few 12/01/17 21:46 Anisocytosis Few 12/01/17 21:46 Microcytosis Not Reportable 12/01/17 21:46 Macrocytosis Not Reportable 12/01/17 21:46 Spherocytes Not Reportable 12/01/17 21:46 Pappenheimer Bodies Not Reportable 12/01/17 21:46 Sickle Cells Not Reportable 12/01/17 21:46 Target Cells Not Reportable 12/01/17 21:46 Tear Drop Cells Not Reportable 12/01/17 21:46 Ovalocytes Not Reportable 12/01/17 21:46 Helmet Cells Not Reportable 12/01/17 21:46 [place] Bodies Not Reportable 12/01/17 21:46 Roberts Rings Not Reportable 12/01/17 21:46 Abram Cells Not Reportable 12/01/17 21:46 Bite Cells Not Reportable 12/01/17 21:46 Crenated Cell Not Reportable 12/01/17 21:46 Elliptocytes Not Reportable 12/01/17 21:46 Acanthocytes (Spur) Not Reportable 12/01/17 21:46 Rouleaux Not Reportable 12/01/17 21:46 Hemoglobin C Crystals Not Reportable 12/01/17 21:46 Schistocytes Not Reportable 12/01/17 21:46 Malaria parasites Not Reportable 12/01/17 21:46 Figu[place]a Bodies Not Reportable 12/01/17 21:46 Hem Pathologist Commnt No 12/01/17 21:46 PT 12.7 Sec. (12.2-14.9) 12/01/17 21:46 INR 0.91 (0.87-1.13) 12/01/17 21:46 APTT 26.1 Sec. (24.2-36.6) 12/01/17 21:46 D-Dimer 1167.06 ng/mlDDU (0-234) H 12/01/17 21:46 POC ABG pH 7.439 (7.35-7.45) 12/03/17 10:25 POC ABG pCO2 40.9 (35-45) 12/03/17 10:25 POC ABG pO2 64 (80-105) L 12/03/17 10:25 POC ABG HCO3 27.7 12/03/17 10:25 POC ABG Total CO2 29 12/03/17 10:25 POC ABG O2 Sat 93 12/03/17 10:25 POC ABG Base Excess 4 12/03/17 10:25 FiO2 21 % 12/03/17 10:25 Sodium 139 mmol/L (137-145) 12/03/17 05:19 Potassium 4.1 mmol/L (3.6-5.0) 12/03/17 05:19 Chloride 100.9 mmol/L (98-107) 12/03/17 05:19 Carbon Dioxide 29 mmol/L (22-30) 12/03/17 05:19 Anion Gap 13 mmol/L 12/03/17 05:19 BUN 7 mg/dL (7-17) 12/03/17 05:19 Creatinine 0.7 mg/dL (0.7-1.2) 12/03/17 05:19 Estimated GFR > 60 ml/min 12/03/17 05:19 BUN/Creatinine Ratio 10 % 12/03/17 05:19 Glucose 85 mg/dL (65-100) 12/03/17 05:19 Calcium 9.2 mg/dL (8.4-10.2) 12/03/17 05:19 Troponin T < 0.010 ng/mL (0.00-0.029) 12/02/17 03:35 CA 27-29 38 U/mL (<38) H 12/03/17 09:28 CA 125 Antigen 170 U/mL (<35) H 12/07/17 10:08 HCG, Qual Positive (Negative) 12/01/17 21:46 HCG, Quant < 2 mIU/mL (0-4) 12/02/17 02:01 Fluid Type Thoracentesis 12/02/17 Unknown Fluid Color Yellow 12/02/17 Unknown Fluid Appearance Clear 12/02/17 Unknown Fluid pH 7.393 12/02/17 Unknown Fluid WBC 118 /mm3 12/02/17 Unknown Fluid RBC 334 /mm3 12/02/17 Unknown Fluid Seg Neutrophils 5.0 % 12/02/17 Unknown Fluid Lymphocytes 59.0 % 12/02/17 Unknown Fluid Reactive Lymphs 0 % 12/02/17 Unknown Fluid Monocytes 36.0 % 12/02/17 Unknown Fluid Eosinophils 0 % 12/02/17 Unknown Fluid Basophils 0 % 12/02/17 Unknown Fluid Glucose 83 mg/dL (40-70) H 12/02/17 Unknown Fluid Total Protein 4.1 (15.0-45.0) L 12/02/17 Unknown Fluid Albumin 2.2 g/dL 12/02/17 Unknown Fluid LDH 167 12/02/17 Unknown Fluid Amylase 14 12/02/17 Unknown Miscellaneous Test Flexitest 1 12/02/17 08:00 Blood Type B POSITIVE 12/02/17 01:15 Antibody Screen Negative 12/02/17 01:15
[2017-12-10] MEDS: LOVENOX SUB-Q SCH (22:55)
[2017-12-11] MEDS: ATROVENT IH SCH ×5 (03:19→23:35)
[2017-12-11] MEDS: DILAUDID IV PRN ×3 (04:01→22:12)
--- NOTE | 2017-12-11 09:23 | Progress Note ---
Assessment and Plan Acute on chronic Respiratory failure with hypoxia Right pleural effusion SIRS Hepatic masses Uterine mass Breast Nodule Sinus tachycardia Insomnia Presumed Metastatic Disease -pleurx catheter, will need teaching on managemnet of pleurx - continue supplemental oxygen to keep O2 Sats > 90% - continue bronchodilators and pulmonary hygiene per RT - await needle biopsy path report on liver lesions - GI & VTE prophylaxis - prn analgesia - BIPAP for increased work of breathing prn - continue other care per attending / other consultants Discussed cytology findings with the pathologist and the hepatic lesion was positive for malignancy. She has sent out the slides for more immunostains. ....prognosis guarded Subjective Date of service: 12/11/17 Principal diagnosis: Acute Hypoxemic Resp Failure; Large Right Pleural Effusion Interval history: Patient is seen today for: Pleural Effusion, hypoxic respiratory failure Seen and examined at bedside; 24hour events reviewed; nursing and respiratory care staff consulted; no adverse overnight events reported to me; Objective - Exam Narrative Exam: VITAL SIGNS: Reviewed. GENERAL: The patient appeared well nourished and normally developed. Vital signs as documented. HEAD: No signs of head trauma. EYES: Pupils are equal. Extraocular motions intact. EARS: Hearing grossly intact. MOUTH: Oropharynx is normal. NECK: No adenopathy, no JVD. CHEST: Chest with crackles breath sounds Right lobe . Right pleurx catheter, port placed CARDIAC: Regular rate and rhythm. S1 and S2, without murmurs, gallops, or rubs. VASCULAR: No Edema. Peripheral pulses normal and equal in all extremities. ABDOMEN: Soft, without detectable tenderness. No sign of distention. No rebound or guarding, and no masses palpated. Bowel Sounds normal. MUSCULOSKELETAL: Good range of motion of all major joints. Extremities without clubbing, cyanosis or edema. NEUROLOGIC EXAM: Alert and oriented x 3. No focal sensory or strength deficits. Speech normal. Follows commands. PSYCHIATRIC: Mood normal. SKIN: No rash or lesions. Vital Signs - 12hr 12/10/17 12/11/17 12/11/17 23:03 03:34 08:04 Temperature 98.9 F 98.0 F 97.8 F Pulse Rate 98 H 100 H 91 H Respiratory 18 18 19 Rate Blood Pressure 105/70 120/83 125/78 O2 Sat by Pulse 99 99 100 Oximetry 12/11/17 08:20 Temperature Pulse Rate Respiratory 18 Rate Blood Pressure O2 Sat by Pulse Oximetry Constitutional: no acute distress, alert Eyes: non-icteric ENT: oropharynx moist Neck: supple, no JVD Ascultation: Right: diminished breath sounds Cardiovascular: regular rate and rhythm Gastrointestinal: normoactive bowel sounds, soft, non-tender Integumentary: normal Extremities: no cyanosis, no edema Neurologic: normal mental status, non-focal exam, pupils equal and round, CN II- XII normal Psychiatric: mood appropriate CBC and BMP: 12/03/17 05:19 12/03/17 05:19 ABG, PT/INR, D-dimer: ABG POC ABG pH 7.439 (7.35-7.45) 12/03/17 10:25 POC ABG pCO2 40.9 (35-45) 12/03/17 10:25 POC ABG pO2 64 (80-105) L 12/03/17 10:25 POC ABG HCO3 27.7 12/03/17 10:25 POC ABG Total CO2 29 12/03/17 10:25 POC ABG O2 Sat 93 12/03/17 10:25 PT/INR, D-dimer PT 12.7 Sec. (12.2-14.9) 12/01/17 21:46 INR 0.91 (0.87-1.13) 12/01/17 21:46 D-Dimer 1167.06 ng/mlDDU (0-234) H 12/01/17 21:46 Abnormal lab findings: Abnormal Labs 12/01/17 12/01/17 12/01/17 21:46 21:46 21:46 WBC 14.1 H RBC 5.96 H Hgb 14.4 H Hct 45.8 H MCV 77 L MCH 24 L RDW 15.4 H Plt Count 460 H Lymph % (Auto) [place] % (Auto) [place] # Seg Neutrophils % Monocytes % (Manual) 13.0 H Seg Neutrophils # Man 9.9 H Monocytes # (Manual) 1.8 H D-Dimer 1167.06 H POC ABG pO2 Chloride 93.7 L BUN 5 L Creatinine 0.6 L Glucose 101 H Calcium 10.7 H CA 27-29 CA 125 Antigen Fluid Glucose Fluid Total Protein 12/02/17 12/03/17 12/03/17 Unknown 05:19 09:28 WBC RBC 5.17 H Hgb Hct MCV 77 L MCH 25 L RDW 15.5 H Plt Count Lymph % (Auto) 11.3 L [place] % (Auto) 15.4 H [place] # 1.6 H Seg Neutrophils % 71.6 H Monocytes % (Manual) Seg Neutrophils # Man Monocytes # (Manual) D-Dimer POC ABG pO2 Chloride BUN Creatinine Glucose Calcium CA 27-29 38 H CA 125 Antigen Fluid Glucose 83 H Fluid Total Protein 4.1 L 12/03/17 12/07/17 10:25 10:08 WBC RBC Hgb Hct MCV MCH RDW Plt Count Lymph % (Auto) [place] % (Auto) [place] # Seg Neutrophils % Monocytes % (Manual) Seg Neutrophils # Man Monocytes # (Manual) D-Dimer POC ABG pO2 64 L Chloride BUN Creatinine Glucose Calcium CA 27-29 CA 125 Antigen 170 H Fluid Glucose Fluid Total Protein
[2017-12-11] MEDS: PEPCID PO SCH ×2 (11:13→22:08)
[2017-12-11] MEDS: LEVAQUIN PO SCH (11:13)
[2017-12-11] MEDS: ZOFRAN IV PRN (12:47)
--- NOTE | 2017-12-11 15:01 | Progress Note ---
Assessment and Plan - Patient Problems (1) Pleural effusion, right Current Visit: Yes Status: Acute Plan to address problem: Continue chest tube for now. (2) Metastatic cancer Current Visit: Yes Status: Acute Plan to address problem: Port in place. Subjective Date of service: 12/11/17 Principal diagnosis: Acute Hypoxemic Resp Failure; Large Right Pleural Effusion Interval history: Has some itching around the left neck. Still sleeeps sitting up because SOB. Objective - Constitutional Vitals: Vital Signs - 12hr 12/11/17 12/11/17 12/11/17 03:34 08:04 08:20 Temperature 98.0 F 97.8 F Pulse Rate 100 H 91 H Pulse Rate [ Anterior Bilateral Throughout] Respiratory 18 19 18 Rate Respiratory Rate [Anterior Bilateral Throughout] Blood Pressure 120/83 125/78 O2 Sat by Pulse 99 100 Oximetry 12/11/17 12/11/17 12/11/17 11:31 11:39 11:40 Temperature Pulse Rate Pulse Rate [ 110 H 112 H Anterior Bilateral Throughout] Respiratory Rate Respiratory 16 18 Rate [Anterior Bilateral Throughout] Blood Pressure O2 Sat by Pulse 100 Oximetry General appearance: Present: no acute distress - Neck Neck: other (port site clean, dressings intact) - Respiratory Respiratory effort: other (chest tube in place and draining) - Labs CBC & Chem 7: 12/03/17 05:19 12/03/17 05:19
[2017-12-11] MEDS: ROBITUSSIN AC PO PRN (16:24)
--- NOTE | 2017-12-11 17:52 | Progress Note ---
Assessment and Plan Assessment and plan: Patient is a 37 year old female with no past medical history who presented to the ER with complaints of shortness of breath going on for over 2 weeks, worse with ambulation and no associated chest pain, nausea, vomiting, diarrhea or fever. Patient reports treatment with amoxicilin and prednisone from an urgent care center with no improvement. She presented to the ER after she noted worsening shortness of breath, and back pain. On arrival was noted to have showed complete atelectasis of the RUL with near complete collapse of the right middle and right lower lobes, extensive metastatic disease throughout the right middle and right lower lobes, pleural fluid occupying the entirety of the right hemithorax with moderate mass effect and mediastinal shift to the left, metastatic pleural base nodules throughout the right hemithorax, moderate pleural effusion, multiple left pulmonary nodules, partial visualization of extensive metastatic disease seen throughout the liver, 1.8cm ovoid soft tissue nodular density in the right breast. She denies any tobacco history or family history of cancer. Acute on chronic Respiratory failure with hypoxia * Continue Nebs, oxygen support, Pulmonary consult noted * Repeat chest x-ray Still with complete opacification * Chest tube placement today. 1 L of fluid was removed. Mild temp the temperature post procedure will revaluate resolved with Tylenol Right Upper lobe pleural effusion * IR for diagnostic thoracentesis. * still persist despite thoracentesis. she is s/p chest tube placement * pleural fluid cytology negative Hepatic masses * pathology reveals malignant cells with unknown primary suspicion is that this may be breast primary. Await specialist * CHEST TUBE PLACED, PORT placed Uterine mass * Fibroid per [employer]ST[employer]ER Left pulmonary nodule with mass effect * May eventually need CTS surgery. Breast Nodule * Discussed with Breast surgeon, will set up for outpatient evaluation Sinus tachycardia * Continue xopenex IN PLACE OF ALBUTEROL * Although overall medical condition can be the main culprit Insomnia * Ambien SIRS * Secondary to above. May also have underlying infection. on broad specturm abx after cultueres * R/o Influenza Presumed Metastatic Disease * Consult Hematology oncology DVT/GI prophy Plan discussed with patient and family results of and discussed. Discussed findings in detail with the patient. Discussed with oncologist, await dispostion in reference to chest tube History Interval history: Patient seen and examined she is status post chest tube placement chest port placed, no acute distress Hospitalist Physical - Physical exam Narrative exam: VITAL SIGNS: Reviewed. GENERAL: The patient appeared well nourished and normally developed. Vital signs as documented. HEAD: No signs of head trauma. EYES: Pupils are equal. Extraocular motions intact. EARS: Hearing grossly intact. MOUTH: Oropharynx is normal. NECK: No adenopathy, no JVD. CHEST: Chest with crackles breath sounds Right lobe . Right chest tube is intact and draining.. CARDIAC: Regular rate and rhythm. S1 and S2, without murmurs, gallops, or rubs. VASCULAR: No Edema. Peripheral pulses normal and equal in all extremities. ABDOMEN: Soft, without detectable tenderness. No sign of distention. No rebound or guarding, and no masses palpated. Bowel Sounds normal. MUSCULOSKELETAL: Good range of motion of all major joints. Extremities without clubbing, cyanosis or edema. NEUROLOGIC EXAM: Alert and oriented x 3. No focal sensory or strength deficits. Speech normal. Follows commands. PSYCHIATRIC: Mood normal. SKIN: No rash or lesions. - Constitutional Vitals: Temp Pulse Resp BP Pulse Ox 98.3 F 105 H 20 120/79 99 12/11/17 16:27 12/11/17 16:27 12/11/17 16:27 12/11/17 16:27 12/11/17 16:27 General appearance: Present: no acute distress Results - Labs CBC & Chem 7: 12/03/17 05:19 12/03/17 05:19 Labs: Laboratory Last Values WBC 10.2 K/mm3 (4.5-11.0) 12/03/17 05:19 RBC 5.17 M/mm3 (3.65-5.03) H 12/03/17 05:19 Hgb 12.7 gm/dl (10.1-14.3) 12/03/17 05:19 Hct 39.6 % (30.3-42.9) D 12/03/17 05:19 MCV 77 fl (79-97) L 12/03/17 05:19 MCH 25 pg (28-32) L 12/03/17 05:19 MCHC 32 % (30-34) 12/03/17 05:19 RDW 15.5 % (13.2-15.2) H 12/03/17 05:19 Plt Count 339 K/mm3 (140-440) 12/03/17 05:19 Lymph % (Auto) 11.3 % (13.4-35.0) L 12/03/17 05:19 [place] % (Auto) 15.4 % (0.0-7.3) H 12/03/17 05:19 Eos % (Auto) 0.8 % (0.0-4.3) 12/03/17 05:19 Baso % (Auto) 0.9 % (0.0-1.8) 12/03/17 05:19 Lymph # 1.2 K/mm3 (1.2-5.4) 12/03/17 05:19 [place] # 1.6 K/mm3 (0.0-0.8) H 12/03/17 05:19 Eos # 0.1 K/mm3 (0.0-0.4) 12/03/17 05:19 Baso # 0.1 K/mm3 (0.0-0.1) 12/03/17 05:19 Add Manual Diff Complete 12/01/17 21:46 Total Counted 100 12/01/17 21:46 Seg Neutrophils % 71.6 % (40.0-70.0) H 12/03/17 05:19 Seg Neuts % (Manual) 70.0 % (40.0-70.0) 12/01/17 21:46 Band Neutrophils % 0 % 12/01/17 21:46 Lymphocytes % (Manual) 17.0 % (13.4-35.0) 12/01/17 21:46 Reactive Lymphs % (Man) 0 % 12/01/17 21:46 Monocytes % (Manual) 13.0 % (0.0-7.3) H 12/01/17 21:46 Eosinophils % (Manual) 0 % (0.0-4.3) 12/01/17 21:46 Basophils % (Manual) 0 % (0.0-1.8) 12/01/17 21:46 Metamyelocytes % 0 % 12/01/17 21:46 Myelocytes % 0 % 12/01/17 21:46 Promyelocytes % 0 % 12/01/17 21:46 Blast Cells % 0 % 12/01/17 21:46 Nucleated RBC % Not Reportable 12/01/17 21:46 Seg Neutrophils # 7.3 K/mm3 (1.8-7.7) 12/03/17 05:19 Seg Neutrophils # Man 9.9 K/mm3 (1.8-7.7) H 12/01/17 21:46 Band Neutrophils # 0.0 K/mm3 12/01/17 21:46 Lymphocytes # (Manual) 2.4 K/mm3 (1.2-5.4) 12/01/17 21:46 Abs React Lymphs (Man) 0.0 K/mm3 12/01/17 21:46 Monocytes # (Manual) 1.8 K/mm3 (0.0-0.8) H 12/01/17 21:46 Eosinophils # (Manual) 0.0 K/mm3 (0.0-0.4) 12/01/17 21:46 Basophils # (Manual) 0.0 K/mm3 (0.0-0.1) 12/01/17 21:46 Metamyelocytes # 0.0 K/mm3 12/01/17 21:46 Myelocytes # 0.0 K/mm3 12/01/17 21:46 Promyelocytes # 0.0 K/mm3 12/01/17 21:46 Blast Cells # 0.0 K/mm3 12/01/17 21:46 WBC Morphology Not Reportable 12/01/17 21:46 Hypersegmented Neuts Not Reportable 12/01/17 21:46 Hyposegmented Neuts Not Reportable 12/01/17 21:46 Hypogranular Neuts Not Reportable 12/01/17 21:46 Smudge Cells Not Reportable 12/01/17 21:46 Toxic Granulation Not Reportable 12/01/17 21:46 Toxic Vacuolation Not Reportable 12/01/17 21:46 Dohle Bodies Not Reportable 12/01/17 21:46 Pelger-Huet Anomaly Not Reportable 12/01/17 21:46 Misty Rods Not Reportable 12/01/17 21:46 Platelet Estimate Appears normal 12/01/17 21:46 Clumped Platelets Not Reportable 12/01/17 21:46 Plt Clumps, EDTA Not Reportable 12/01/17 21:46 Large Platelets Not Reportable 12/01/17 21:46 Giant Platelets Not Reportable 12/01/17 21:46 Platelet Satelliting Not Reportable 12/01/17 21:46 Plt Morphology Comment Not Reportable 12/01/17 21:46 RBC Morphology Not Reportable 12/01/17 21:46 Dimorphic RBCs Not Reportable 12/01/17 21:46 Polychromasia Not Reportable 12/01/17 21:46 Hypochromasia Not Reportable 12/01/17 21:46 Poikilocytosis Few 12/01/17 21:46 Anisocytosis Few 12/01/17 21:46 Microcytosis Not Reportable 12/01/17 21:46 Macrocytosis Not Reportable 12/01/17 21:46 Spherocytes Not Reportable 12/01/17 21:46 Pappenheimer Bodies Not Reportable 12/01/17 21:46 Sickle Cells Not Reportable 12/01/17 21:46 Target Cells Not Reportable 12/01/17 21:46 Tear Drop Cells Not Reportable 12/01/17 21:46 Ovalocytes Not Reportable 12/01/17 21:46 Helmet Cells Not Reportable 12/01/17 21:46 [place] Bodies Not Reportable 12/01/17 21:46 [place] Rings Not Reportable 12/01/17 21:46 [place] Cells Not Reportable 12/01/17 21:46 Bite Cells Not Reportable 12/01/17 21:46 Crenated Cell Not Reportable 12/01/17 21:46 Elliptocytes Not Reportable 12/01/17 21:46 Acanthocytes (Spur) Not Reportable 12/01/17 21:46 Rouleaux Not Reportable 12/01/17 21:46 Hemoglobin C Crystals Not Reportable 12/01/17 21:46 Schistocytes Not Reportable 12/01/17 21:46 Malaria parasites Not Reportable 12/01/17 21:46 Figu[place]a Bodies Not Reportable 12/01/17 21:46 Hem Pathologist Commnt No 12/01/17 21:46 PT 12.7 Sec. (12.2-14.9) 12/01/17 21:46 INR 0.91 (0.87-1.13) 12/01/17 21:46 APTT 26.1 Sec. (24.2-36.6) 12/01/17 21:46 D-Dimer 1167.06 ng/mlDDU (0-234) H 12/01/17 21:46 POC ABG pH 7.439 (7.35-7.45) 12/03/17 10:25 POC ABG pCO2 40.9 (35-45) 12/03/17 10:25 POC ABG pO2 64 (80-105) L 12/03/17 10:25 POC ABG HCO3 27.7 12/03/17 10:25 POC ABG Total CO2 29 12/03/17 10:25 POC ABG O2 Sat 93 12/03/17 10:25 POC ABG Base Excess 4 12/03/17 10:25 FiO2 21 % 12/03/17 10:25 Sodium 139 mmol/L (137-145) 12/03/17 05:19 Potassium 4.1 mmol/L (3.6-5.0) 12/03/17 05:19 Chloride 100.9 mmol/L (98-107) 12/03/17 05:19 Carbon Dioxide 29 mmol/L (22-30) 12/03/17 05:19 Anion Gap 13 mmol/L 12/03/17 05:19 BUN 7 mg/dL (7-17) 12/03/17 05:19 Creatinine 0.7 mg/dL (0.7-1.2) 12/03/17 05:19 Estimated GFR > 60 ml/min 12/03/17 05:19 BUN/Creatinine Ratio 10 % 12/03/17 05:19 Glucose 85 mg/dL (65-100) 12/03/17 05:19 Calcium 9.2 mg/dL (8.4-10.2) 12/03/17 05:19 Troponin T < 0.010 ng/mL (0.00-0.029) 12/02/17 03:35 CA 27-29 38 U/mL (<38) H 12/03/17 09:28 CA 125 Antigen 170 U/mL (<35) H 12/07/17 10:08 HCG, Qual Positive (Negative) 12/01/17 21:46 HCG, Quant < 2 mIU/mL (0-4) 12/02/17 02:01 Fluid Type Thoracentesis 12/02/17 Unknown Fluid Color Yellow 12/02/17 Unknown Fluid Appearance Clear 12/02/17 Unknown Fluid pH 7.393 12/02/17 Unknown Fluid WBC 118 /mm3 12/02/17 Unknown Fluid RBC 334 /mm3 12/02/17 Unknown Fluid Seg Neutrophils 5.0 % 12/02/17 Unknown Fluid Lymphocytes 59.0 % 12/02/17 Unknown Fluid Reactive Lymphs 0 % 12/02/17 Unknown Fluid Monocytes 36.0 % 12/02/17 Unknown Fluid Eosinophils 0 % 12/02/17 Unknown Fluid Basophils 0 % 12/02/17 Unknown Fluid Glucose 83 mg/dL (40-70) H 12/02/17 Unknown Fluid Total Protein 4.1 (15.0-45.0) L 12/02/17 Unknown Fluid Albumin 2.2 g/dL 12/02/17 Unknown Fluid LDH 167 12/02/17 Unknown Fluid Amylase 14 12/02/17 Unknown Miscellaneous Test Flexitest 1 12/02/17 08:00 Blood Type B POSITIVE 12/02/17 01:15 Antibody Screen Negative 12/02/17 01:15
[2017-12-11] MEDS: TYLENOL PO PRN (18:48)
[2017-12-11] MEDS: LOVENOX SUB-Q SCH (22:07)
--- NOTE | 2017-12-12 07:53 | Progress Note ---
Assessment and Plan - Patient Problems (1) Pleural effusion, right Current Visit: Yes Status: Acute Plan to address problem: Leave chest tube inplace for now. (2) Metastatic cancer Current Visit: Yes Status: Acute Plan to address problem: Port is in place. Subjective Date of service: 12/12/17 Principal diagnosis: Acute Hypoxemic Resp Failure; Large Right Pleural Effusion Interval history: No new complaints Objective - Constitutional Vitals: Vital Signs - 12hr 12/11/17 12/11/17 12/11/17 20:00 20:19 21:10 Temperature 98.9 F Pulse Rate 110 H Pulse Rate [ 107 H Bilateral Throughout] Respiratory 18 18 Rate Respiratory 20 Rate [Bilateral Throughout] Blood Pressure 110/76 O2 Sat by Pulse 96 100 Oximetry 12/11/17 12/12/17 21:20 04:47 Temperature 98.8 F Pulse Rate 104 H Pulse Rate [ 108 H Bilateral Throughout] Respiratory 18 Rate Respiratory 18 Rate [Bilateral Throughout] Blood Pressure 129/81 O2 Sat by Pulse 100 100 Oximetry - Respiratory Respiratory effort: other (CT in place, drained 80cc yesterday) - Labs CBC & Chem 7: 12/03/17 05:19 12/03/17 05:19
[2017-12-12] MEDS: LEVAQUIN PO SCH (09:37)
[2017-12-12] MEDS: PEPCID PO SCH ×2 (09:37→22:15)
[2017-12-12] MEDS: ATROVENT IH SCH ×4 (09:54→22:29)
[2017-12-12] MEDS: DILAUDID IV PRN ×3 (10:24→22:14)
--- NOTE | 2017-12-12 12:38 | Hem/Onc Progress Note ---
Assessment and Plan 1. metastatic cancer (likely primary breast)- final pathology pending. We discussed treatment strategies today and that specific medication choices would depend on final pathology. We discussed that treatment would be palliative in nature. All of Ms Fishman's questions were answered. 2. pleural effusion- plan is to place PleurX catheter. Subjective Date of service: 12/12/17 Interval history: did not sleep well last night. No shortness of breath Objective - Constitutional Vitals: Last Vital Signs Temp 97.8 F 12/12/17 07:55 Pulse 106 H 12/12/17 10:00 Resp 18 12/12/17 08:00 BP 125/84 12/12/17 07:55 Pulse Ox 100 12/12/17 07:55 General appearance: no acute distress - Neck Neck: supple - Respiratory Respiratory effort: Positive: normal (chest tube in place) - Cardiovascular Rhythm: regular Extremities: No edema - Gastrointestinal General gastrointestinal: Present: soft - Integumentary Integumentary: warm, dry
--- NOTE | 2017-12-12 13:22 | Progress Note ---
Assessment and Plan Acute on chronic Respiratory failure with hypoxia Right pleural effusion SIRS Hepatic masses Uterine mass Breast Nodule Sinus tachycardia Insomnia Presumed Metastatic Disease -pleurx catheter, will need teaching on management of pleurx if placed - continue supplemental oxygen to keep O2 Sats > 90% - continue bronchodilators and pulmonary hygiene per RT - await needle biopsy path report on liver lesions - GI & VTE prophylaxis - prn analgesia - BIPAP for increased work of breathing prn - continue other care per attending / other consultants Discussed cytology findings with the pathologist and the hepatic lesion was positive for malignancy. She has sent out the slides for more immunostains. ....prognosis guarded Subjective Date of service: 12/12/17 Principal diagnosis: Acute Hypoxemic Resp Failure; Large Right Pleural Effusion Interval history: Patient is seen today for: Pleural Effusion, hypoxic respiratory failure Seen and examined at bedside; 24hour events reviewed; nursing and respiratory care staff consulted; no adverse overnight events reported to me; Objective - Exam Narrative Exam: VITAL SIGNS: Reviewed. GENERAL: The patient appeared well nourished and normally developed. Vital signs as documented. HEAD: No signs of head trauma. EYES: Pupils are equal. Extraocular motions intact. EARS: Hearing grossly intact. MOUTH: Oropharynx is normal. NECK: No adenopathy, no JVD. CHEST: Chest with crackles breath sounds Right lobe . Right pleurx catheter, port placed CARDIAC: Regular rate and rhythm. S1 and S2, without murmurs, gallops, or rubs. VASCULAR: No Edema. Peripheral pulses normal and equal in all extremities. ABDOMEN: Soft, without detectable tenderness. No sign of distention. No rebound or guarding, and no masses palpated. Bowel Sounds normal. MUSCULOSKELETAL: Good range of motion of all major joints. Extremities without clubbing, cyanosis or edema. NEUROLOGIC EXAM: Alert and oriented x 3. No focal sensory or strength deficits. Speech normal. Follows commands. PSYCHIATRIC: Mood normal. SKIN: No rash or lesions. Vital Signs - 12hr 12/12/17 12/12/17 12/12/17 04:47 07:55 08:00 Temperature 98.8 F 97.8 F Pulse Rate 104 H 103 H Respiratory 18 20 18 Rate Blood Pressure 129/81 125/84 O2 Sat by Pulse 100 100 Oximetry 12/12/17 10:00 Temperature Pulse Rate 106 H Respiratory Rate Blood Pressure O2 Sat by Pulse Oximetry Constitutional: no acute distress, alert Eyes: non-icteric ENT: oropharynx moist Neck: supple, no JVD Ascultation: Right: diminished breath sounds Cardiovascular: regular rate and rhythm Gastrointestinal: normoactive bowel sounds, soft, non-tender Integumentary: normal Extremities: no cyanosis, no edema Neurologic: normal mental status, non-focal exam, pupils equal and round, CN II- XII normal Psychiatric: mood appropriate CBC and BMP: 12/03/17 05:19 12/03/17 05:19 ABG, PT/INR, D-dimer: ABG POC ABG pH 7.439 (7.35-7.45) 12/03/17 10:25 POC ABG pCO2 40.9 (35-45) 12/03/17 10:25 POC ABG pO2 64 (80-105) L 12/03/17 10:25 POC ABG HCO3 27.7 12/03/17 10:25 POC ABG Total CO2 29 12/03/17 10:25 POC ABG O2 Sat 93 12/03/17 10:25 PT/INR, D-dimer PT 12.7 Sec. (12.2-14.9) 12/01/17 21:46 INR 0.91 (0.87-1.13) 12/01/17 21:46 D-Dimer 1167.06 ng/mlDDU (0-234) H 12/01/17 21:46 Abnormal lab findings: Abnormal Labs 12/01/17 12/01/17 12/01/17 21:46 21:46 21:46 WBC 14.1 H RBC 5.96 H Hgb 14.4 H Hct 45.8 H MCV 77 L MCH 24 L RDW 15.4 H Plt Count 460 H Lymph % (Auto) [place] % (Auto) [place] # Seg Neutrophils % Monocytes % (Manual) 13.0 H Seg Neutrophils # Man 9.9 H Monocytes # (Manual) 1.8 H D-Dimer 1167.06 H POC ABG pO2 Chloride 93.7 L BUN 5 L Creatinine 0.6 L Glucose 101 H Calcium 10.7 H CA 27-29 CA 125 Antigen Fluid Glucose Fluid Total Protein 12/02/17 12/03/17 12/03/17 Unknown 05:19 09:28 WBC RBC 5.17 H Hgb Hct MCV 77 L MCH 25 L RDW 15.5 H Plt Count Lymph % (Auto) 11.3 L [place] % (Auto) 15.4 H [place] # 1.6 H Seg Neutrophils % 71.6 H Monocytes % (Manual) Seg Neutrophils # Man Monocytes # (Manual) D-Dimer POC ABG pO2 Chloride BUN Creatinine Glucose Calcium CA 27-29 38 H CA 125 Antigen Fluid Glucose 83 H Fluid Total Protein 4.1 L 12/03/17 12/07/17 10:25 10:08 WBC RBC Hgb Hct MCV MCH RDW Plt Count Lymph % (Auto) [place] % (Auto) [place] # Seg Neutrophils % Monocytes % (Manual) Seg Neutrophils # Man Monocytes # (Manual) D-Dimer POC ABG pO2 64 L Chloride BUN Creatinine Glucose Calcium CA 27-29 CA 125 Antigen 170 H Fluid Glucose Fluid Total Protein
[2017-12-12] MEDS: XOPENEX IH PRN ×2 (13:44→22:29)
--- NOTE | 2017-12-12 18:37 | XRay Report ---
FINAL REPORT PROCEDURE: XR CHEST 1V AP TECHNIQUE: Chest radiograph anteroposterior view. CPT 04584 HISTORY: right pleural effusion COMPARISON: 12/04/2017 FINDINGS: Heart: Prominent cardiac silhouette Mediastinum/Vessels: Normal. Lungs/Pleural space: Right chest tube has been placed, with drainage of the majority of the right pleural effusion. Small amount of right pleural fluid is present. There is minimal patchy right lung base atelectasis or infiltrate. There may be a small right apical pneumothorax Bony thorax: No acute osseous abnormality. Life support devices: Right chest tube is present. Left MediPort catheter tip is at the cavoatrial junction. IMPRESSION: Significantly decreased size of the right pleural fluid with small amount of right pleural effusion. There is a possible small right apical pneumothorax
[2017-12-12] MEDS: ZOFRAN IV PRN (22:15)
[2017-12-12] MEDS: LOVENOX SUB-Q SCH (22:15)
[2017-12-13] MEDS: ROBITUSSIN AC PO PRN (00:42)
[2017-12-13] MEDS: ATROVENT IH SCH ×4 (07:58→23:33)
[2017-12-13] MEDS: XOPENEX IH PRN (08:49)
--- NOTE | 2017-12-13 09:25 | Hem/Onc Progress Note ---
Assessment and Plan d/w with patient and friend. Awaiting specifics on the liver biopsy. Patient will need chemotherapy and targeted therapy if HER-2 positive. Will order echocardiogram in anticipation of starting chemotherapy soon Prognosis is guarded Subjective Date of service: 12/13/17 Interval history: Patient anxious but feels better. Shortness of breath has improved after chest tube. Appetite is coming back. Pathology on pleural fluid negative. Liver biopsy is positive for malignancy. It seems that she has primary breast cancer. Awaiting her2. ER/IA weakly positive. Objective - Constitutional Vitals: Last Vital Signs Temp 98.6 F 12/13/17 08:22 Pulse 89 12/13/17 08:22 Resp 18 12/13/17 08:22 BP 114/69 12/13/17 08:22 Pulse Ox 99 12/13/17 08:22 General appearance: mild distress Performance status: 3-limited selfcare - Neck Neck: supple - Respiratory Respiratory effort: Positive: normal Respiratory: right: rales - Cardiovascular Rhythm: regular Extremities: No edema - Gastrointestinal General gastrointestinal: Present: soft
[2017-12-13] MEDS: PEPCID PO SCH ×2 (10:11→21:01)
[2017-12-13] MEDS: LEVAQUIN PO SCH (10:11)
[2017-12-13] MEDS: ZOFRAN IV PRN ×2 (10:18→13:28)
--- NOTE | 2017-12-13 10:48 | Progress Note ---
Assessment and Plan Patient with a history of right pleural effusion. Chest x-ray demonstrates only trace fluid left within the fistula. We'll plan on removing the patient's chest tube today. The patient will need to ambulate with assistance of PT. Discussed with patient that if she requires a Pleurx catheter, this can be placed as an outpatient if there is reaccumulation of the fluid. Subjective Date of service: 12/13/17 Principal diagnosis: Acute Hypoxemic Resp Failure; Large Right Pleural Effusion Interval history: Patient with history of diffusely metastatic breast cancer to the liver and lungs. Following placement of her pigtail chest tube last week, the patient's pleural fluid output has decreased significantly producing only between 30 and 50 mils a day. She has no specific complaints. Objective - Constitutional Vitals: Vital Signs - 12hr 12/12/17 12/13/17 12/13/17 23:49 04:22 08:22 Temperature 98.4 F 98.9 F 98.6 F Pulse Rate 93 H 118 H 89 Respiratory 16 20 18 Rate Blood Pressure 124/79 121/84 114/69 O2 Sat by Pulse 100 97 99 Oximetry General appearance: Present: no acute distress - EENT Eyes: PERRL ENT: hearing intact - Neck Neck: supple, normal ROM - Respiratory Respiratory effort: normal - Breasts Breasts: deferred Extremities: no ischemia - Gastrointestinal General gastrointestinal: Present: deferred - Genitourinary Female genitourinary: deferred - Psychiatric Psychiatric: appropriate mood/affect, cooperative - Labs CBC & Chem 7: 12/03/17 05:19 12/03/17 05:19
--- NOTE | 2017-12-13 11:21 | Progress Note ---
Assessment and Plan Acute on chronic Respiratory failure with hypoxia Right pleural effusion SIRS Hepatic masses Uterine mass Breast Nodule Sinus tachycardia Insomnia Presumed Metastatic Disease (Pleural effusion is large, exudative, lymphocyte predominant and despite prior negative cytology probably malignant in this clinical context) - will send for chest tube placement and send more fluid fo analysis - may ultimately need a pleurx catheter if malignant vs VATS procedure - continue supplemental oxygen to keep O2 Sats > 90% - continue bronchodilators and pulmonary hygiene per RT - await needle biopsy path report on liver lesions - GI & VTE prophylaxis (lovenox started) - prn analgesia - BIPAP for increased work of breathing prn - continue other care per attending / other consulatnts ....prognosis guarded Subjective Date of service: 12/13/17 Principal diagnosis: Acute Hypoxemic Resp Failure; Large Right Pleural Effusion Interval history: Patient is seen today for: Pleural Effusion Seen and examined at bedside; 24hour events reviewed; nursing and respiratory care staff consulted; no adverse overnight events reported to me; Objective Vital Signs - 12hr 12/12/17 12/13/17 12/13/17 23:49 04:22 08:22 Temperature 98.4 F 98.9 F 98.6 F Pulse Rate 93 H 118 H 89 Pulse Rate [ Anterior Bilateral Throughout] Respiratory 16 20 18 Rate Respiratory Rate [Anterior Bilateral Throughout] Blood Pressure 124/79 121/84 114/69 O2 Sat by Pulse 100 97 99 Oximetry 12/13/17 12/13/17 12/13/17 08:49 09:00 10:49 Temperature Pulse Rate Pulse Rate [ 94 H 102 H Anterior Bilateral Throughout] Respiratory 16 Rate Respiratory 20 20 Rate [Anterior Bilateral Throughout] Blood Pressure O2 Sat by Pulse 100 99 Oximetry Constitutional: no acute distress, alert Eyes: non-icteric ENT: oropharynx moist Neck: supple, no JVD Ascultation: Right: diminished breath sounds Cardiovascular: regular rate and rhythm Gastrointestinal: normoactive bowel sounds, soft, non-tender Integumentary: normal Extremities: no cyanosis, no edema Neurologic: normal mental status, non-focal exam, pupils equal and round, CN II- XII normal Psychiatric: mood appropriate CBC and BMP: 12/03/17 05:19 12/03/17 05:19 ABG, PT/INR, D-dimer: ABG POC ABG pH 7.439 (7.35-7.45) 12/03/17 10:25 POC ABG pCO2 40.9 (35-45) 12/03/17 10:25 POC ABG pO2 64 (80-105) L 12/03/17 10:25 POC ABG HCO3 27.7 12/03/17 10:25 POC ABG Total CO2 29 12/03/17 10:25 POC ABG O2 Sat 93 12/03/17 10:25 PT/INR, D-dimer PT 12.7 Sec. (12.2-14.9) 12/01/17 21:46 INR 0.91 (0.87-1.13) 12/01/17 21:46 D-Dimer 1167.06 ng/mlDDU (0-234) H 12/01/17 21:46 Abnormal lab findings: Abnormal Labs 12/01/17 12/01/17 12/01/17 21:46 21:46 21:46 WBC 14.1 H RBC 5.96 H Hgb 14.4 H Hct 45.8 H MCV 77 L MCH 24 L RDW 15.4 H Plt Count 460 H Lymph % (Auto) [place] % (Auto) [place] # Seg Neutrophils % Monocytes % (Manual) 13.0 H Seg Neutrophils # Man 9.9 H Monocytes # (Manual) 1.8 H D-Dimer 1167.06 H POC ABG pO2 Chloride 93.7 L BUN 5 L Creatinine 0.6 L Glucose 101 H Calcium 10.7 H CA 27-29 CA 125 Antigen Fluid Glucose Fluid Total Protein 12/02/17 12/03/17 12/03/17 Unknown 05:19 09:28 WBC RBC 5.17 H Hgb Hct MCV 77 L MCH 25 L RDW 15.5 H Plt Count Lymph % (Auto) 11.3 L [place] % (Auto) 15.4 H [place] # 1.6 H Seg Neutrophils % 71.6 H Monocytes % (Manual) Seg Neutrophils # Man Monocytes # (Manual) D-Dimer POC ABG pO2 Chloride BUN Creatinine Glucose Calcium CA 27-29 38 H CA 125 Antigen Fluid Glucose 83 H Fluid Total Protein 4.1 L 12/03/17 12/07/17 10:25 10:08 WBC RBC Hgb Hct MCV MCH RDW Plt Count Lymph % (Auto) [place] % (Auto) [place] # Seg Neutrophils % Monocytes % (Manual) Seg Neutrophils # Man Monocytes # (Manual) D-Dimer POC ABG pO2 64 L Chloride BUN Creatinine Glucose Calcium CA 27-29 CA 125 Antigen 170 H Fluid Glucose Fluid Total Protein
--- NOTE | 2017-12-13 11:59 | Event Note ---
Date: 12/13/17 Rt chest tube removed without incident. Will order post CXR.
--- NOTE | 2017-12-13 12:20 | XRay Report ---
AP CHEST: HISTORY: Right chest tube removal, right pleural effusion The right Heimlich chest tube has been removed since 12/12/18. There is no evidence for pneumothorax. Hypoventilatory changes in the right middle and lower lobes is noted. Trace right pleural effusion persists. The left lung is clear. Moderate cardiomegaly is stable. Left Tujwae-n-Swrf is in adequate position. IMPRESSION: Right chest tube removal. There is partial atelectasis at the right lung base and small right pleural effusion. Stable cardiomegaly. No pneumothorax.
[2017-12-13] MEDS: DILAUDID IV PRN ×2 (13:27→20:45)
--- NOTE | 2017-12-13 14:01 | Progress Note ---
Assessment and Plan - Patient Problems (1) Acute respiratory failure with hypoxemia Current Visit: Yes Status: Acute Plan to address problem: Patient stable with current oxygenation. Had chest tube removed. Follow-up chest x-ray. Not enough fluid to have drain placed on outpatient basis. We'll observe with serial imaging. Continue oxygen nebulizes. May require this upon discharge. (2) Breast mass Current Visit: Yes Status: Acute Plan to address problem: Breast mass most likely etiology prostate cancer. Patient scheduled to have echocardiogram to initiate chemotherapy. Patient's HER-2 status still pending. Liver biopsy consistent with malignant cells. Rest cancer appears to be the primary. (3) HTN (hypertension) Current Visit: Yes Status: Acute Plan to address problem: At present patient has optimal control blood pressure. Longer tachycardic today. Most likely was secondary to respiratory burden with pleural effusion. (4) Metastatic cancer Current Visit: Yes Status: Acute Plan to address problem: Most cycle likely etiology primary breast cancer. With metastasis to the liver. Hematology oncology following. (5) Pleural effusion, right Current Visit: Yes Status: Acute (6) Tachycardia Current Visit: Yes Status: Acute History Interval history: Patient seen and examined no new events over p.m. All questions and concerns answered for her her significant other at bedside. Pain is well controlled. Hospitalist Physical - Constitutional Vitals: Temp Pulse Resp BP Pulse Ox 97.4 F L 107 H 20 133/84 100 12/13/17 12:32 12/13/17 12:32 12/13/17 13:27 12/13/17 12:32 12/13/17 12:32 General appearance: Present: no acute distress - EENT Eyes: Present: PERRL, EOM intact ENT: hearing intact, clear oral mucosa, dentition normal - Neck Neck: Present: supple, normal ROM - Respiratory Respiratory effort: normal Respiratory: bilateral: CTA - Cardiovascular Rhythm: irregularly irregular - Extremities Extremities: no ischemia, pulses intact, No edema, normal temperature Peripheral Pulses: within normal limits - Abdominal General gastrointestinal: soft, non-tender, normal bowel sounds - Integumentary Integumentary: Present: clear, warm, dry - Psychiatric Psychiatric: appropriate mood/affect, intact judgment & insight, memory intact - Neurologic Neurologic: CNII-XII intact, focal deficits, moves all extremities Results - Labs CBC & Chem 7: 12/03/17 05:19 12/03/17 05:19 Labs: Laboratory Last Values WBC 10.2 K/mm3 (4.5-11.0) 12/03/17 05:19 RBC 5.17 M/mm3 (3.65-5.03) H 12/03/17 05:19 Hgb 12.7 gm/dl (10.1-14.3) 12/03/17 05:19 Hct 39.6 % (30.3-42.9) D 12/03/17 05:19 MCV 77 fl (79-97) L 12/03/17 05:19 MCH 25 pg (28-32) L 12/03/17 05:19 MCHC 32 % (30-34) 12/03/17 05:19 RDW 15.5 % (13.2-15.2) H 12/03/17 05:19 Plt Count 339 K/mm3 (140-440) 12/03/17 05:19 Lymph % (Auto) 11.3 % (13.4-35.0) L 12/03/17 05:19 [place] % (Auto) 15.4 % (0.0-7.3) H 12/03/17 05:19 Eos % (Auto) 0.8 % (0.0-4.3) 12/03/17 05:19 Baso % (Auto) 0.9 % (0.0-1.8) 12/03/17 05:19 Lymph # 1.2 K/mm3 (1.2-5.4) 12/03/17 05:19 [place] # 1.6 K/mm3 (0.0-0.8) H 12/03/17 05:19 Eos # 0.1 K/mm3 (0.0-0.4) 12/03/17 05:19 Baso # 0.1 K/mm3 (0.0-0.1) 12/03/17 05:19 Add Manual Diff Complete 12/01/17 21:46 Total Counted 100 12/01/17 21:46 Seg Neutrophils % 71.6 % (40.0-70.0) H 12/03/17 05:19 Seg Neuts % (Manual) 70.0 % (40.0-70.0) 12/01/17 21:46 Band Neutrophils % 0 % 12/01/17 21:46 Lymphocytes % (Manual) 17.0 % (13.4-35.0) 12/01/17 21:46 Reactive Lymphs % (Man) 0 % 12/01/17 21:46 Monocytes % (Manual) 13.0 % (0.0-7.3) H 12/01/17 21:46 Eosinophils % (Manual) 0 % (0.0-4.3) 12/01/17 21:46 Basophils % (Manual) 0 % (0.0-1.8) 12/01/17 21:46 Metamyelocytes % 0 % 12/01/17 21:46 Myelocytes % 0 % 12/01/17 21:46 Promyelocytes % 0 % 12/01/17 21:46 Blast Cells % 0 % 12/01/17 21:46 Nucleated RBC % Not Reportable 12/01/17 21:46 Seg Neutrophils # 7.3 K/mm3 (1.8-7.7) 12/03/17 05:19 Seg Neutrophils # Man 9.9 K/mm3 (1.8-7.7) H 12/01/17 21:46 Band Neutrophils # 0.0 K/mm3 12/01/17 21:46 Lymphocytes # (Manual) 2.4 K/mm3 (1.2-5.4) 12/01/17 21:46 Abs React Lymphs (Man) 0.0 K/mm3 12/01/17 21:46 Monocytes # (Manual) 1.8 K/mm3 (0.0-0.8) H 12/01/17 21:46 Eosinophils # (Manual) 0.0 K/mm3 (0.0-0.4) 12/01/17 21:46 Basophils # (Manual) 0.0 K/mm3 (0.0-0.1) 12/01/17 21:46 Metamyelocytes # 0.0 K/mm3 12/01/17 21:46 Myelocytes # 0.0 K/mm3 12/01/17 21:46 Promyelocytes # 0.0 K/mm3 12/01/17 21:46 Blast Cells # 0.0 K/mm3 12/01/17 21:46 WBC Morphology Not Reportable 12/01/17 21:46 Hypersegmented Neuts Not Reportable 12/01/17 21:46 Hyposegmented Neuts Not Reportable 12/01/17 21:46 Hypogranular Neuts Not Reportable 12/01/17 21:46 Smudge Cells Not Reportable 12/01/17 21:46 Toxic Granulation Not Reportable 12/01/17 21:46 Toxic Vacuolation Not Reportable 12/01/17 21:46 Dohle Bodies Not Reportable 12/01/17 21:46 Pelger-Huet Anomaly Not Reportable 12/01/17 21:46 Misty Rods Not Reportable 12/01/17 21:46 Platelet Estimate Appears normal 12/01/17 21:46 Clumped Platelets Not Reportable 12/01/17 21:46 Plt Clumps, EDTA Not Reportable 12/01/17 21:46 Large Platelets Not Reportable 12/01/17 21:46 Giant Platelets Not Reportable 12/01/17 21:46 Platelet Satelliting Not Reportable 12/01/17 21:46 Plt Morphology Comment Not Reportable 12/01/17 21:46 RBC Morphology Not Reportable 12/01/17 21:46 Dimorphic RBCs Not Reportable 12/01/17 21:46 Polychromasia Not Reportable 12/01/17 21:46 Hypochromasia Not Reportable 12/01/17 21:46 Poikilocytosis Few 12/01/17 21:46 Anisocytosis Few 12/01/17 21:46 Microcytosis Not Reportable 12/01/17 21:46 Macrocytosis Not Reportable 12/01/17 21:46 Spherocytes Not Reportable 12/01/17 21:46 Pappenheimer Bodies Not Reportable 12/01/17 21:46 Sickle Cells Not Reportable 12/01/17 21:46 Target Cells Not Reportable 12/01/17 21:46 Tear Drop Cells Not Reportable 12/01/17 21:46 Ovalocytes Not Reportable 12/01/17 21:46 Helmet Cells Not Reportable 12/01/17 21:46 [place] Bodies Not Reportable 12/01/17 21:46 [place] Rings Not Reportable 12/01/17 21:46 Abram Cells Not Reportable 12/01/17 21:46 Bite Cells Not Reportable 12/01/17 21:46 Crenated Cell Not Reportable 12/01/17 21:46 Elliptocytes Not Reportable 12/01/17 21:46 Acanthocytes (Spur) Not Reportable 12/01/17 21:46 Rouleaux Not Reportable 12/01/17 21:46 Hemoglobin C Crystals Not Reportable 12/01/17 21:46 Schistocytes Not Reportable 12/01/17 21:46 Malaria parasites Not Reportable 12/01/17 21:46 Figueroa Bodies Not Reportable 12/01/17 21:46 Hem Pathologist Commnt No 12/01/17 21:46 PT 12.7 Sec. (12.2-14.9) 12/01/17 21:46 INR 0.91 (0.87-1.13) 12/01/17 21:46 APTT 26.1 Sec. (24.2-36.6) 12/01/17 21:46 D-Dimer 1167.06 ng/mlDDU (0-234) H 12/01/17 21:46 POC ABG pH 7.439 (7.35-7.45) 12/03/17 10:25 POC ABG pCO2 40.9 (35-45) 12/03/17 10:25 POC ABG pO2 64 (80-105) L 12/03/17 10:25 POC ABG HCO3 27.7 12/03/17 10:25 POC ABG Total CO2 29 12/03/17 10:25 POC ABG O2 Sat 93 12/03/17 10:25 POC ABG Base Excess 4 12/03/17 10:25 FiO2 21 % 12/03/17 10:25 Sodium 139 mmol/L (137-145) 12/03/17 05:19 Potassium 4.1 mmol/L (3.6-5.0) 12/03/17 05:19 Chloride 100.9 mmol/L (98-107) 12/03/17 05:19 Carbon Dioxide 29 mmol/L (22-30) 12/03/17 05:19 Anion Gap 13 mmol/L 12/03/17 05:19 BUN 7 mg/dL (7-17) 12/03/17 05:19 Creatinine 0.7 mg/dL (0.7-1.2) 12/03/17 05:19 Estimated GFR > 60 ml/min 12/03/17 05:19 BUN/Creatinine Ratio 10 % 12/03/17 05:19 Glucose 85 mg/dL (65-100) 12/03/17 05:19 Calcium 9.2 mg/dL (8.4-10.2) 12/03/17 05:19 Troponin T < 0.010 ng/mL (0.00-0.029) 12/02/17 03:35 CA 27-29 38 U/mL (<38) H 12/03/17 09:28 CA 125 Antigen 170 U/mL (<35) H 12/07/17 10:08 HCG, Qual Positive (Negative) 12/01/17 21:46 HCG, Quant < 2 mIU/mL (0-4) 12/02/17 02:01 Fluid Type Thoracentesis 12/02/17 Unknown Fluid Color Yellow 12/02/17 Unknown Fluid Appearance Clear 12/02/17 Unknown Fluid pH 7.393 12/02/17 Unknown Fluid WBC 118 /mm3 12/02/17 Unknown Fluid RBC 334 /mm3 12/02/17 Unknown Fluid Seg Neutrophils 5.0 % 12/02/17 Unknown Fluid Lymphocytes 59.0 % 12/02/17 Unknown Fluid Reactive Lymphs 0 % 12/02/17 Unknown Fluid Monocytes 36.0 % 12/02/17 Unknown Fluid Eosinophils 0 % 12/02/17 Unknown Fluid Basophils 0 % 12/02/17 Unknown Fluid Glucose 83 mg/dL (40-70) H 12/02/17 Unknown Fluid Total Protein 4.1 (15.0-45.0) L 12/02/17 Unknown Fluid Albumin 2.2 g/dL 12/02/17 Unknown Fluid LDH 167 12/02/17 Unknown Fluid Amylase 14 12/02/17 Unknown Miscellaneous Test Flexitest 1 12/02/17 08:00 Blood Type B POSITIVE 12/02/17 01:15 Antibody Screen Negative 12/02/17 01:15
[2017-12-13] MEDS: LOVENOX SUB-Q SCH (21:01)
[2017-12-14] MEDS: ATROVENT IH SCH ×2 (07:53→15:34)
--- NOTE | 2017-12-14 08:30 | XRay Report ---
AP CHEST: HISTORY: Right pleural effusion Cardiomegaly, small right pleural effusion and right basilar atelectasis are unchanged since yesterday's exam. The left lung remains clear. No pneumothorax. Left Skysce-o-Aeqh is in good position. IMPRESSION: No change.
--- NOTE | 2017-12-14 09:57 | Hem/Onc Progress Note ---
Assessment and Plan I will arrange for chemotherapy with carbotaxol to cover breast and ovarian As outpatient we will also do genetic testing. Lengthy discussion with patient and her boyfriend. Will be seeing her as outpatient. Treatment is palliative Subjective Date of service: 12/14/17 Interval history: Patient anxious but feels better. Chest tube was taken out yesterday. Final pathology shows ER weakly positive HER-2 negative. There were features of possible ovarian cancer also in the pathology. Objective - Constitutional Vitals: Last Vital Signs Temp 97.8 F 12/14/17 07:46 Pulse 97 H 12/14/17 07:46 Resp 20 12/14/17 07:46 BP 112/66 12/14/17 07:46 Pulse Ox 98 12/14/17 07:46 Pain Intensity (0-10): denies any pain General appearance: no acute distress Performance status: 2- selfcare, ambulatory - Neck Neck: supple - Respiratory Respiratory: right: diminished - Cardiovascular Rhythm: regular Extremities: No edema - Gastrointestinal General gastrointestinal: Present: soft
[2017-12-14] MEDS: LEVAQUIN PO SCH (10:26)
[2017-12-14] MEDS: ZOFRAN IV PRN (10:27)
[2017-12-14] MEDS: PEPCID PO SCH (10:27)
--- NOTE | 2017-12-14 14:13 | Discharge Summary ---
Providers - Providers Date of Admission: 12/02/17 04:18 Date of discharge: 12/14/17 Attending physician: ROLAND DE LUNA 12/02/17 03:46 Consult to Physician [CONS] Urgent Consulting Provider: GUANAKITO MEDINA Reason For Exam: metastatic cancer, 100% right pleural effusion Place consult to:: Dr. Medina Notified:: Via her number Phone number called:: her number Was contact made?: Yes If yes, spoke with:: Dr. Medina Time called:: 03:45 Comment:: Dr. Ngo (er dr) spoke with Dr. Medina 12/02/17 06:57 Consult to Physician [CONS] Routine Consulting Provider: SHO PURCELL Reason For Exam: breast nodule-suspicious for metastatic ca Place consult to:: office Notified:: yes Phone number called:: [phone] Was contact made?: Yes If yes, spoke with:: Dianne Time called:: 08:50 12/02/17 07:00 Consult to Physician [CONS] Routine Consulting Provider: LEON VALERO Reason For Exam: presumed metastatic disease Place consult to:: answering service Notified:: yes Phone number called:: [phone] Was contact made?: Yes If yes, spoke with:: Wendy Time called:: 08:54 12/04/17 11:17 Consult to Physician [CONS] Routine Consulting Provider: RORY PARKS Reason For Exam: urterine mass Place consult to:: Dr. Parks Notified:: Mary BROWN Phone number called:: Was contact made?: Yes If yes, spoke with:: Dr. Parks Time called:: 09:59 12/07/17 12:16 Consult to Interventional Radiology [CONS] Urgent Consulting Provider: CJ ARGUETA Reason For Exam: Large R Effusion; Please place chest tube, thanks Notified:: no 12/13/17 10:44 Physical Therapy Evaluation and Treat [CONS] Routine Comment: Reason For Exam: eval and ambulate Primary care physician: MDM SR Hospitalization Condition: Stable Hospital course: Patient is a 37 year old female with no past medical history who presented to the ER with complaints of shortness of breath going on for over 2 weeks, worse with ambulation. Patient reports treatment with amoxicilin and prednisone from an urgent care center with no improvement. On arrival CXR/CT chest/abdomen/ pelvis was noted to have showed complete atelectasis of the RUL with near complete collapse of the right middle and right lower lobes, extensive metastatic disease throughout the right middle and right lower lobes, pleural fluid occupying the entirety of the right hemithorax with moderate mass effect and mediastinal shift to the left, metastatic pleural base nodules throughout the right hemithorax, moderate pleural effusion, multiple left pulmonary nodules , partial visualization of extensive metastatic disease seen throughout the liver, 1.8cm ovoid soft tissue nodular density in the right breast. Discharge diagnosis: Acute on chronic Respiratory failure with hypoxia - due to right pleural effusion Right sided pleural effusion - s/p chest tube placement by IR - pleural fluid cytology negative Metastatic brest cancer with Hepatic masses.lung and breast nodules - Liver biopsy reveals malignant cells with unknown primary suspicion is that this may be breast primary. - Final pathology shows ER weakly positive HER-2 negative. 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 Breast Nodule - Discussed with Breast surgeon, will set up for outpatient evaluation Sinus tachycardia - Continue xopenex - Although overall medical condition can be the main culprit Insomnia - on Ambien SIRS - Secondary to metastatic disease Disposition: DC-01 TO HOME OR SELFCARE Time spent for discharge: 32 minutes Core Measure Documentation - Palliative Care Palliative Care/ Comfort Measures: Not Applicable - Core Measures Any of the following diagnoses?: none Exam - Constitutional Vitals: Temp Pulse Resp BP Pulse Ox 97.8 F 97 H 20 112/66 98 12/14/17 07:46 12/14/17 07:46 12/14/17 07:46 12/14/17 07:46 12/14/17 07:46 General appearance: Present: no acute distress, well-nourished - EENT Eyes: Present: PERRL ENT: hearing intact, clear oral mucosa - Neck Neck: Present: supple, normal ROM - Respiratory Respiratory effort: normal Respiratory: bilateral: CTA - Cardiovascular Heart Sounds: Present: S1 & S2. Absent: rub, click - Extremities Extremities: pulses symmetrical, No edema Peripheral Pulses: within normal limits - Abdominal General gastrointestinal: Present: soft, non-tender, non-distended, normal bowel sounds - Integumentary Integumentary: Present: clear, warm, dry - Musculoskeletal Musculoskeletal: gait normal, strength equal bilaterally - Psychiatric Psychiatric: appropriate mood/affect, intact judgment & insight - Neurologic Neurologic: CNII-XII intact, moves all extremities Plan Activity: advance as tolerated Weight Bearing Status: Non-Weight Bearing Diet: regular Durable Medical Equipment Needed Upon Discharge: Nebulizer Additional Instructions: F/u with Dr Valero for initiation of chemotherapy Follow up with: PRIMARY CARE, [Primary Care Provider] - 7 Days Prescriptions: Zolpidem [Ambien] 5 mg PO QHS PRN #30 tablet PRN Reason: Sleep ALBUTEROL Inhaler [ProAir HFA Inhaler] 2 puff IH QID PRN 30 Days inha PRN Reason: Shortness Of Breath Levalbuterol [Xopenex] 0.63 mg IH PRN PRN #30 nebu PRN Reason: Shortness Of Breath Megestrol [Megace] 20 mg PO BID #60 tablet oxyCODONE /ACETAMINOPHEN [Percocet 5/325] 1 tab PO Q6HR PRN #20 tablet PRN Reason: Pain
[2017-12-14 16:33] VITALS: BP 115/80
== END 2017-12-14 17:42 | disposition home or self-care (01) | DRG 579 ==
LOC: ED 21:23 → 4A 12-02 04:18 → 3A 12-08 19:48
PROVIDERS: ADMIT Internal Medicine; ATTEND Internal Medicine
PROC: 0W993ZZ Drainage of Right Pleural Cavity, Percutaneous Approach (ICD-10-PCS; principal; 2017-12-02)
PROC: 4A033R1 Measurement of Arterial Saturation, Peripheral, Percutaneous Approach (ICD-10-PCS; 2017-12-03)
PROC: 0FB03ZX Excision of Liver, Percutaneous Approach, Diagnostic (ICD-10-PCS; 2017-12-06)
PROC: 0W9930Z Drainage of Right Pleural Cavity with Drainage Device, Percutaneous Approach (ICD-10-PCS; 2017-12-09)
PROC: 0JH63WZ Insertion of Totally Implantable Vascular Access Device into Chest Subcutaneous Tissue and Fascia, Percutaneous Approach (ICD-10-PCS; 2017-12-10)
PROC: B2141ZZ Fluoroscopy of Right Heart using Low Osmolar Contrast (ICD-10-PCS; 2017-12-10)
PROC: 02H633Z Insertion of Infusion Device into Right Atrium, Percutaneous Approach (ICD-10-PCS; 2017-12-10)
PROC: B244ZZZ Ultrasonography of Right Heart (ICD-10-PCS; 2017-12-10)
DX: C50.911 Malignant neoplasm of unspecified site of right female breast (principal); J96.21 Acute and chronic respiratory failure with hypoxia; J90 Pleural effusion, not elsewhere classified; R65.10 Systemic inflammatory response syndrome (SIRS) of non-infectious origin without acute organ dysfunction; I42.9 Cardiomyopathy, unspecified; C78.7 Secondary malignant neoplasm of liver and intrahepatic bile duct; C78.00 Secondary malignant neoplasm of unspecified lung; R00.0 Tachycardia, unspecified; N85.9 Noninflammatory disorder of uterus, unspecified; R91.1 Solitary pulmonary nodule; N63.0 Unspecified lump in unspecified breast; G47.00 Insomnia, unspecified; J20.9 Acute bronchitis, unspecified
CPT/HCPCS: 32551; 32555; 36415; 36561; 36600; 47000; 70544; 70553; 71045; 71046; 71275; 74177; 76830; 76856; 77012; 78306; 80048; 82040; 82150; 82803; 82947; 83605; 84160; 84484; 84702; 84703; 85007; 85025; 85379; 85610; 85730; 86300; 86304; 86850; 86900; 86901; 87116; 88112; 88172; 88173; 88305; 88307; 88333; 88341; 88342; 89051; 93005; 93010; 93306; 93970; 94640; 94760; 96361; 96374; 96375; A9503; A9577; C1751; C1769; C1788; J0690; J1170; J1644; J1650; J1956; J2250; J2270; J2405; J3010; J7030; J7050; Q9967

== ENCOUNTER 2018-01-03 13:18 | Outpatient (CLI) | payer MEDICAID ==
--- NOTE | 2018-01-04 08:36 | Ultrasound Report ---
ABDOMINAL ULTRASOUND: 01/03/18 13:18:00 CLINICAL: Metastatic cancer of unknown origin. FINDINGS: High-resolution ultrasound demonstrates a mildly enlarged liver with multiple solid masses. The largest is in the lateral segment of the left lobe at the intersegmental fissure and measures 3.2 x 3.6 x 4.0 cm. Several right hepatic masses. Normal hepatic vasculature and inferior vena cava. The gallbladder is partially contracted with no stones. The gallbladder wall measures 4.0mm. Normal intrahepatic and extra hepatic bile ducts. The common bile duct measures 3.0 mm diameter. Normal hepatic head and body. The pancreatic tail is not optimally imaged. Normal abdominal aorta. A normal spleen measures 9.4 x 5.0 x 5.7cm. Normal kidneys with normal echogenicity and normal non-dilated renal collecting systems and ureters. The right kidney measures 10.2 x 4.4 x 4.6cm. The left kidney measures 10.4 x 6.0 x 4.4cm. No renal mass or calculus. No ascites. IMPRESSION: 1. Numerous hepatic masses and mild hepatomegaly. CT guided percutaneous needle biopsy would be feasible. 2. The rest of exam is normal with suboptimal imaging of the pancreatic tail.
--- NOTE | 2018-01-04 15:11 | Ultrasound Report ---
TRANSABDOMINAL AND TRANSVAGINAL PELVIC ULTRASOUND: 01/03/18 13:18:00 CLINICAL: Metastatic cancer of unknown origin. FINDINGS: Transabdominal and transvaginal pelvic ultrasound demonstrated an enlarged fibroid uterus measuring approximately 7.6 cm in length by 9.2 cm transverse dimension by 5.8 cm AP dimension. The urinary bladder was not optimally filled because she could not fill anymore. This limits the overall evaluation of the uterine size, so this may be an underestimation of uterine size. A dominant left subserosal fibroid measures 5.9 x 5.6 x 5.4 cm. Additional fibroids measure 1.5 x 1.4 x 1.1 cm and 0.7 x 0.5 x 0.5 cm.The endometrium is normal and measures 6 mm AP thickness. A normal right ovary measures 2.1 x 1.4 x 1.6cm. a left ovary is not identified. No adnexal mass. Moderate free fluid. Normal urinary bladder. IMPRESSION: 1. Uterine leiomyomata with a dominant 5.9 cm left subserosal fibroid of the uterine body. 2. Normal right ovary and no left ovary identified. The large left-sided fibroid probably displaces the left ovary. 3. Moderate pelvic ascites.
== END 2018-01-03 13:19 | disposition home or self-care (01) ==
LOC: SPVWC 13:18
PROVIDERS: ATTEND Internal Medicine Hematology
DX: C50.911 Malignant neoplasm of unspecified site of right female breast (principal); C56.9 Malignant neoplasm of unspecified ovary; C80.0 Disseminated malignant neoplasm, unspecified; D25.2 Subserosal leiomyoma of uterus; I87.8 Other specified disorders of veins; R16.0 Hepatomegaly, not elsewhere classified; K76.89 Other specified diseases of liver
CPT/HCPCS: 76700; 76830; 76856